=== PATIENT | male | born 1960 | race Two or more races ===

== ENCOUNTER 2020-05-09 10:11 | Outpatient (REF) | payer MEDICAID, SELFPAY | END 2020-05-09 10:12 | disposition home or self-care (01) | LOC: HO.LAB 10:11 | PROVIDERS: Visit Provider Internal Medicine | DX: Z20.828 Contact with and (suspected) exposure to other viral communicable diseases (principal) | CPT/HCPCS: U0003 ==

== ENCOUNTER 2020-06-10 17:41 | Outpatient (REF) | payer MEDICAID, SELFPAY | END 2020-06-10 17:42 | disposition home or self-care (01) | LOC: HO.LAB 17:41 | PROVIDERS: Visit Provider Internal Medicine | DX: Z20.828 Contact with and (suspected) exposure to other viral communicable diseases (principal) | CPT/HCPCS: C9803; U0003 ==

== ENCOUNTER 2020-06-12 14:00 | Outpatient (RCR) | payer MEDICAID, SELFPAY | END 2020-08-08 10:40 | disposition other institution (70) | LOC: HO.PT 14:00 | PROVIDERS: PCP Nurse Practitioner Family; Visit Provider Nurse Practitioner Family | DX: M54.5 Low back pain (principal) | CPT/HCPCS: 97110; 97140; 97162 ==

== ENCOUNTER 2020-08-07 13:05 | Outpatient (REF) | payer MEDICAID, SELFPAY ==
[2020-08-07 14:32] LABS: MANUAL DIFF FLAG NO
[2020-08-07 14:35] LABS: Basophils Absolute Auto 0.1 X10*3/uL (0.0-0.2); Basophils Percent Auto 0.6 % (0-2); Eosinophils Absolute Auto 0.2 X10*3/uL (0.0-0.4); Hematocrit 49.8 % (42-52); Hemoglobin 16.3 g/dl (14.0-18.0); Lymphocytes Absolute Auto 3.3 X10*3/uL (1.2-4.9); Lymphocytes Percent Auto 33.8 % (20-40); Mean Corpuscular HGB Conc 32.7 g/dl (31.0-36.0); Mean Corpuscular Hemoglobin 27.5 pg (27.0-33.0); Mean Corpuscular Volume 84.1 fL (80-98); Mean Platelet Volume 10.2 fL (9.4-12.4); Monocytes Absolute Auto 0.8 X10*3/uL (0.1-1.2); Monocytes Percent Auto 8.3 % (2-11); Neutrophils Absolute Auto 5.4 X10*3/uL (2.0-8.3); Neutrophils Percent Auto 54.3 % (45-73); Platelet Count 303 X10*3/uL (160-400); Red Blood Count 5.92 X10*6/uL (4.60-5.80); Red Cell Distribution Width 12.9 % (11.0-16.0); White Blood Count 9.9 X10*3/uL (4.8-10.8)
[2020-08-07 14:39] LABS: Prothrombin Time 11.3 SEC (10.8-13.0)
[2020-08-07 15:02] LABS: Alanine Aminotransferase 16 U/L (0-40); Albumin Level 4.1 g/dL (3.5-5.0); Alkaline Phosphatase 134 U/L (39-117); Anion Gap 17 (12-20); Aspartate Amino Transferase 11 U/L (5-37); Bilirubin Total 0.6 mg/dL (0.0-1.0); Blood Urea Nitrogen 13 mg/dL (9-16); Calcium 9.1 mg/dL (8.4-10.2); Carbon Dioxide 26 mmol/L (22-29); Chloride 100 mmol/L (96-108); Cholesterol 261 mg/dL; Estimated Glomerular Filt Rate > 60; Glucose Random 302 mg/dL (60-115); HDL Cholesterol 43 mg/dL; LDL Cholesterol Calculated 155 mg/dl; Potassium 4.5 mmol/l (3.3-5.1); Sodium 138 mmol/L (135-145); Total Protein 6.9 g/dL (6.5-8.0); Triglycerides 317 mg/dL
[2020-08-07 15:20] LABS: Estimated Average Glucose 232 mg/dL; Hemoglobin A1c % 9.7 %
== END 2020-08-07 13:06 | disposition home or self-care (01) ==
LOC: HO.LAB 13:05
PROVIDERS: Visit Provider Internal Medicine Cardiovascular Disease
DX: I21.3 ST elevation (STEMI) myocardial infarction of unspecified site (principal)
CPT/HCPCS: 36415; 80053; 80061; 83036; 85025; 85610

== ENCOUNTER → 2020-08-18 13:47 | Outpatient (BNVA) | payer MEDICAID, SELFPAY | PROVIDERS: Visit Provider Nurse Practitioner Family ==

== ENCOUNTER 2020-11-05 15:13 | Outpatient (REF) | payer MEDICAID, SELFPAY | END 2020-11-05 15:14 | disposition home or self-care (01) | LOC: HO.LAB 15:13 | PROVIDERS: Visit Provider Internal Medicine | DX: Z20.822 Contact with and (suspected) exposure to COVID-19 (principal) | CPT/HCPCS: C9803; U0003; U0005 ==

== ENCOUNTER → 2021-01-15 10:44 | Outpatient (BNVA) | payer MEDICAID, SELFPAY | PROVIDERS: PCP Nurse Practitioner Family; Visit Provider Nurse Practitioner Gerontology | DX: E11.42 Type 2 diabetes mellitus with diabetic polyneuropathy (principal); E11.65 Type 2 diabetes mellitus with hyperglycemia; E11.29 Type 2 diabetes mellitus with other diabetic kidney complication; E78.00 Pure hypercholesterolemia, unspecified; I10 Essential (primary) hypertension; R80.9 Proteinuria, unspecified; Z79.4 Long term (current) use of insulin | CPT/HCPCS: 82947; 83036; 99212 ==

== ENCOUNTER 2021-01-30 08:49 | Day surgery (SDC) | payer MEDICAID, SELFPAY ==
--- NOTE | 2021-01-29 11:07 | P.CONAN_ITS ---
Documented by User: Liz Claudette 01/29/21 11:09 HPI - Anesthesia Eval Consult details Narrative: 59yo M for Colonoscopy VU 08/2020 (no DE), on DAPT. Cardiology cleared 09/2020 to proceed with procedure, but NOT to stop DAPT. Routine cardiac visit 01/26/21 - pt reports sporadic, nonexertional CP. Relief with NTG ~3x's monthly. PMFSH Active Problems Active Problems: All Active Problems (Updated 01/15/21 @ 11:53 by SUHA Wellington) Diabetes type 2, uncontrolled (Acute) Type 2 diabetes mellitus with diabetic polyneuropathy (Acute) Type 2 diabetes mellitus with other diabetic kidney complication (Acute) Proteinuria (Acute) Elevated cholesterol (Acute) HTN (hypertension) (Acute) Past Medical History Medical History (Updated 01/15/21 @ 11:53 by SUHA Wellington) CAD (coronary artery disease) COVID-19 vaccine administered Diabetes Diabetes type 2, uncontrolled Elevated cholesterol H/O myocardial infarction, greater than 8 weeks HTN (hypertension) On anticoagulant therapy Proteinuria Sleep apnea 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 Family History Family History Mother Diabetes HTN (hypertension) Father HTN (hypertension) Diabetes Maternal Grandmother Diabetes Maternal Grandfather Diabetes Surgical History Surgical History H/O colonoscopy History of incisional hernia repair Hx of heart artery stent Hx of hernia repair Social History Social History Household Members: Spouse, Family, Children and Other Are you a primary acute care registered nurse to a significant other at home: No Do you presently have visiting nurse or other home services: No Alcohol intake: current Alcohol intake frequency: does not drink Patient Tobacco Use Status: Current everyday Tobacco user Tobacco use type: Cigarette Cigarettes Per Day: 10 Smoked in Last 30 Days: Yes Use of substances other than those prescribed or required for medical reasons: No Are you DNR?: No Advance Directives: No Advance Directives Information Provided: Yes Recently lost weight without trying: No Nutrition Risks: No Nutritional Risk Poor oral hygiene: No Meds Allergies Allergy/AdvReac Type Severity Reaction Status Date / Time No Known Allergies Allergy Verified 01/15/21 11:32 [No Known Allergies*] Home Medications Medication Instructions Recorded Confirmed Last Taken Type aspirin 81 mg tablet,delayed 81 mg PO DAILY 08/18/20 01/15/21 Unknown History release zjgazjcppt-ybypxkmwazzkh-cejccwxp 1 cap PO Q8H PRN 08/18/20 01/15/21 Unknown History 50 mg-300 mg-40 mg capsule clopidogrel 75 mg tablet 75 mg PO DAILY 08/18/20 01/15/21 Unknown History metoprolol succinate 25 mg 25 mg PO DAILY 08/18/20 01/15/21 Unknown History tablet,extended release 24 hr rosuvastatin 40 mg tablet 40 mg PO DAILY 08/18/20 01/15/21 Unknown History acetaminophen 650 mg PO Q4H PRN 09/23/20 01/15/21 Unknown History amlodipine 5 mg PO DAILY 09/23/20 01/15/21 Unknown History lisinopril-hydrochlorothiazide 1 tab PO DAILY 09/23/20 01/15/21 Unknown History metoprolol succinate 50 mg PO DAILY 09/23/20 01/15/21 Unknown History nitroglycerin 1 tab SUBLINGUAL NEEDED 09/23/20 01/15/21 Unknown History pioglitazone 45 mg PO DAILY 09/23/20 01/15/21 Unknown History polyethylene glycol 3350 17 238 g PO ONCE PRN g 01/15/21 01/15/21 Unknown History gram/dose oral powder Exam Exam Date and Time: January 29, 2021 110 Assessment and Plan Assessment Anesthesia Assessment: Chart Reviewed Documented by User: Breonna Vo 01/30/21 09:27 [facility] Past Medical History Medical History (Updated 01/15/21 @ 11:53 by SUHA Wellington) CAD (coronary artery disease) COVID-19 vaccine administered Diabetes Diabetes type 2, uncontrolled Elevated cholesterol H/O myocardial infarction, greater than 8 weeks HTN (hypertension) On anticoagulant therapy Proteinuria Sleep apnea 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 Family History Family History Mother Diabetes HTN (hypertension) Father HTN (hypertension) Diabetes Maternal Grandmother Diabetes Maternal Grandfather Diabetes Surgical History Surgical History H/O colonoscopy History of incisional hernia repair Hx of heart artery stent Hx of hernia repair Social History Social History Household Members: Spouse, Family, Children and Other Are you a primary acute care registered nurse to a significant other at home: No Do you presently have visiting nurse or other home services: No Alcohol intake: current Alcohol intake frequency: does not drink Patient Tobacco Use Status: Current everyday Tobacco user Tobacco use type: Cigarette Cigarettes Per Day: 10 Smoked in Last 30 Days: Yes Use of substances other than those prescribed or required for medical reasons: No Are you DNR?: No Advance Directives: No Advance Directives Information Provided: Yes Recently lost weight without trying: No Nutrition Risks: No Nutritional Risk Poor oral hygiene: No Meds Allergies Allergy/AdvReac Type Severity Reaction Status Date / Time No Known Allergies Allergy Verified 01/15/21 11:32 [No Known Allergies*] Home Medications Medication Instructions Recorded Confirmed Last Taken Type aspirin 81 mg tablet,delayed 81 mg PO DAILY 08/18/20 01/15/21 Unknown History release dxyytabscm-wfdqjcfuutluz-eurmybvw 1 cap PO Q8H PRN 08/18/20 01/15/21 Unknown History 50 mg-300 mg-40 mg capsule clopidogrel 75 mg tablet 75 mg PO DAILY 08/18/20 01/15/21 Unknown History metoprolol succinate 25 mg 25 mg PO DAILY 08/18/20 01/15/21 Unknown History tablet,extended release 24 hr rosuvastatin 40 mg tablet 40 mg PO DAILY 08/18/20 01/15/21 Unknown History acetaminophen 650 mg PO Q4H PRN 09/23/20 01/15/21 Unknown History amlodipine 5 mg PO DAILY 09/23/20 01/15/21 Unknown History lisinopril-hydrochlorothiazide 1 tab PO DAILY 09/23/20 01/15/21 Unknown History metoprolol succinate 50 mg PO DAILY 09/23/20 01/15/21 Unknown History nitroglycerin 1 tab SUBLINGUAL NEEDED 09/23/20 01/15/21 Unknown History pioglitazone 45 mg PO DAILY 09/23/20 01/15/21 Unknown History polyethylene glycol 3350 17 238 g PO ONCE PRN g 01/15/21 01/15/21 Unknown History gram/dose oral powder Exam Airway Mallampati Class: III TM Dist: >3cm Neck ROM: Full Heart: rrr Lungs: cta Assessment and Plan Assessment Anesthesia Assessment: Anesthesia Plan Discussed and Chart Reviewed Final Anesthetic Review NPO: Yes ASA Class: III Final Preanesthetic Review: No Changes in Pt Med Stat and Consent Obtained/Reviewed Patient Risk: Intermediate Procedure Risk: Intermediate Anesthetic Plan Anesthetic Plan: MAC: Disposition: Standard PACU
[2021-01-30 08:58] VITALS: BMI 36.2
[2021-01-30 09:03] VITALS: BP 119/73; PULSE 88; RESP 16; TEMP 36.3; O2SAT 96
[2021-01-30 09:10] LABS: Glucose, Whole Blood 183 mg/dL (60-115)
[2021-01-30] MEDS: Lactated Ringers 1,000 ML 100 ML IVCONT (09:17)
--- NOTE | 2021-01-30 09:26 | MHC.SHP ---
Pre-Procedural Eval Section A Date of Service: 01/30/21 The patient is an INPATIENT: No The History & Physical has been completed within 30 days and I have reviewed it.: No Section B Chief Complaint: Screening Details of Present Illness: Colon cancer screening Relevant Family History (Specify if Yes): No Present Medications: see Short Stay Collaborative assessment Medical History: Significant History (H/O myocardial infarction, greater than 8 weeks) Allergies: Allergies Allergy/AdvReac Type Severity Reaction Status Date / Time No Known Allergies Allergy Verified 01/15/21 11:32 [No Known Allergies*] Review of Systems Sugical H&P ROS: Negative: Constitution, Cardiovascular, Respiratory and Gastrointestinal Exam Surgical H&P Exam: Normal: Heart, Normal: Lungs, Normal: Extremities and Normal: Abdomen Plan Diagnosis/Plan: Unchanged I have reviewed the history and physical and performed a pertinent physical examination on my patient. No changes have occurred unless specified.
[2021-01-30 10:14] VITALS: BP 106/62; PULSE 89; RESP 16; TEMP 36.6; O2SAT 94
[2021-01-30 10:30] VITALS: BP 115/69; PULSE 82; RESP 18; TEMP 36.6; O2SAT 97
--- NOTE | 2021-01-31 13:06 | W.PM.OPN ---
Operative Note Operative Note Date of Service: 01/30/21 Narrative: Pre-op diagnosis: Colon cancer screening Post-op diagnosis: other (Colon polyps, diverticulosis, hemorrhoids) Procedure: COLONOSCOPY TILL CECUM Consent: Indications for the procedure and potential complications of bleeding, perforation, reaction to medications and missed diagnosis were discussed with the patient and informed consent was obtained. Instrument: Olympus PCF H 190 L variable stiffness pediatric colonoscope Monitoring: Vital signs and clinical assessment, intermittent blood pressure monitoring, continuous EKG monitoring, Pulse oximetry and Carbon Dioxide monitoring were done throughout the procedure. Colon withdrawl time was 25 minutes. Procedure: The patient was placed in the left lateral decubitis position and pre-procedure medications were administered. After a digital rectal examination of the ano-rectum, the video colonoscope was inserted into the rectum and advanced through the colon to the cecum. The colonoscope was slowly withdrawn in a retrograde panoramic fashion and the colon mucosa was carefully examined including a retroflexed view of the rectum. Findings and interventions are described below. Procedure Difficulty: Without difficulty Findings: Terminal Ileum: Not evaluated Cecum: Normal Ascending Colon: Scattered diverticulosis Transverse Colon: Two 10-12 mm sessile polyps 60 to 70 cms - not removed since pt is on aspirin and Plavix. Moderate diverticulosis Descending Colon: Moderate diverticulosis Sigmoid Colon: A 9-10 mm sessile polyp at 22 cms - not removed since pt is on Plavix. Moderate diverticulosis Rectum: Normal Ano-rectum: Moderate internal hemorrhoids Colon preparation: Fair despite copuous irrigation (pt ate chicken and rice at 11 am yesterday) Impression and Post Procedure Diagnosis: Colonoscopy Findings: Three medium sized polyps detected - not removed since pt is unable to hold Plavix until February. Moderate diverticulosis seen in the entire colon Moderate hemorrhoids on retroflexed exam. Plan: Await pathology results Patient to schedule a FU appointment on in the GI Clinic with Vicky Akhtar FNP-BC in 3 months. Repeat Colonoscopy interval based on path results - in 4-6 months after holding Plavix so polyps can be removed. Above findings were reviewed with the patient and colon polyps and diverticulosis handouts were given in the discharge area Surgeon: Sayda Cárdenas MD Anesthesia: MAC (Dr Prado) Was an Local Owner Operator Truck Driver used for this Procedure?: Yes Local Owner Operator Truck Driver: Vinicio Driscoll Estimated blood loss (mL): 0 Pathology: none sent Condition: stable Disposition: PACU
== END 2021-01-30 13:23 | disposition home or self-care (01) ==
PROVIDERS: PCP Nurse Practitioner Family; Visit Provider Internal Medicine Gastroenterology
PROC: 0DJD8ZZ Inspection of Lower Intestinal Tract, Via Natural or Artificial Opening Endoscopic (ICD-10-PCS; CPT 45378; principal; 2021-01-30 10:20)
DX: Z12.11 Encounter for screening for malignant neoplasm of colon (principal); K63.5 Polyp of colon; K57.30 Diverticulosis of large intestine without perforation or abscess without bleeding; E11.42 Type 2 diabetes mellitus with diabetic polyneuropathy; E11.29 Type 2 diabetes mellitus with other diabetic kidney complication; N28.9 Disorder of kidney and ureter, unspecified; I25.10 Atherosclerotic heart disease of native coronary artery without angina pectoris; Z98.61 Coronary angioplasty status; I10 Essential (primary) hypertension; G47.30 Sleep apnea, unspecified; Z79.82 Long term (current) use of aspirin; Z79.899 Other long term (current) drug therapy; Z79.02 Long term (current) use of antithrombotics/antiplatelets; F17.210 Nicotine dependence, cigarettes, uncomplicated
CPT/HCPCS: 45378; 82947

== ENCOUNTER → 2021-04-28 07:29 | Outpatient (BNVA) | payer MEDICAID, SELFPAY | PROVIDERS: PCP Nurse Practitioner Family; Visit Provider Nurse Practitioner Gerontology | DX: E11.65 Type 2 diabetes mellitus with hyperglycemia (principal); E11.29 Type 2 diabetes mellitus with other diabetic kidney complication; E78.5 Hyperlipidemia, unspecified; E66.01 Morbid (severe) obesity due to excess calories; R80.9 Proteinuria, unspecified; I10 Essential (primary) hypertension; Z68.35 Body mass index [BMI] 35.0-35.9, adult | CPT/HCPCS: 82947; Q3014 ==

== ENCOUNTER → 2021-06-12 11:44 | Outpatient (BNVA) | payer MEDICAID, SELFPAY | PROVIDERS: PCP Nurse Practitioner Family; Referring Provider Nurse Practitioner Family; Visit Provider Nurse Practitioner Family | DX: Z12.11 Encounter for screening for malignant neoplasm of colon (principal) | CPT/HCPCS: 99212 ==

== ENCOUNTER → 2021-09-22 12:38 | Outpatient (BNVA) | payer MEDICAID, SELFPAY | PROVIDERS: PCP Nurse Practitioner Family; Visit Provider Nurse Practitioner Gerontology | DX: E11.42 Type 2 diabetes mellitus with diabetic polyneuropathy (principal); E11.65 Type 2 diabetes mellitus with hyperglycemia; E11.29 Type 2 diabetes mellitus with other diabetic kidney complication; E78.00 Pure hypercholesterolemia, unspecified; E66.09 Other obesity due to excess calories; R80.9 Proteinuria, unspecified; I10 Essential (primary) hypertension; Z79.4 Long term (current) use of insulin; Z68.34 Body mass index [BMI] 34.0-34.9, adult | CPT/HCPCS: 82947; 83036; 99212 ==

== ENCOUNTER → 2021-11-20 14:24 | Outpatient (BNVA) | payer MEDICAID, SELFPAY | PROVIDERS: PCP Nurse Practitioner Family; Visit Provider Urology | DX: E11.69 Type 2 diabetes mellitus with other specified complication (principal); N52.1 Erectile dysfunction due to diseases classified elsewhere; N47.1 Phimosis | CPT/HCPCS: 99202 ==

== ENCOUNTER 2021-11-23 08:14 | Day surgery (SDC) | payer MEDICAID, SELFPAY ==
--- NOTE | 2021-11-20 12:29 | HO.ANESPROP2 ---
Documented by User: Liz Wilkins NP 11/20/21 12:33 HPI - Anesthesia Eval Consult details Narrative: 60yo M for Colonoscopy Stable at 09/2021 cardiac visit s/p colonoscopy 01/2021 with MAC. Pt was unable to stop plavix at that time so polyps were not removed. Repeat now to remove polyps off plavix. PMFSH Active Problems Active Problems: All Active Problems (Updated 09/22/21 @ 13:39 by SUHA Wellington) Obesity due to excess calories (Acute) Diabetes type 2, uncontrolled (Acute) Type 2 diabetes mellitus with diabetic polyneuropathy (Acute) Type 2 diabetes mellitus with other diabetic kidney complication (Acute) Proteinuria (Acute) Elevated cholesterol (Acute) HTN (hypertension) (Acute) Past Medical History Medical History CAD (coronary artery disease) COVID-19 vaccine administered Diabetes Diabetes type 2, uncontrolled Elevated cholesterol H/O myocardial infarction, greater than 8 weeks HTN (hypertension) Obesity due to excess calories On anticoagulant therapy Proteinuria Sleep apnea 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 Family History Family History Mother Diabetes HTN (hypertension) Father HTN (hypertension) Diabetes Maternal Grandmother Diabetes Maternal Grandfather Diabetes Surgical History Surgical History H/O colonoscopy History of incisional hernia repair Hx of colonoscopy Hx of heart artery stent Hx of hernia repair Social History Social History Household Members: Spouse, Family, Children and Other Are you a primary healthcare corporate account director to a significant other at home: No Do you presently have visiting nurse or other home services: No Alcohol intake: current Alcohol intake frequency: does not drink Patient Tobacco Use Status: Current everyday Tobacco user Tobacco use type: Cigarette Cigarettes Per Day: 10 Advance Directives: No Advance Directives Information Provided: Yes Recently lost weight without trying: No Nutrition Risks: No Nutritional Risk Meds Allergies Allergy/AdvReac Type Severity Reaction Status Date / Time No Known Allergies Allergy Verified 11/20/21 14:34 [No Known Allergies*] Home Medications Medication Instructions Recorded Confirmed Last Taken Type aspirin 81 mg tablet,delayed 81 mg PO DAILY 08/18/20 11/17/21 01/29/21 History release (Adult Low Dose Aspirin) puqwfojwmi-wqokuxmquvlrg-gddljnkg 1 cap PO Q8H PRN 08/18/20 11/17/21 Unknown History 50 mg-300 mg-40 mg capsule (Fioricet) clopidogrel 75 mg tablet (Plavix) 75 mg PO DAILY 08/18/20 11/17/21 01/29/21 History rosuvastatin 40 mg tablet 40 mg PO DAILY 08/18/20 11/17/21 Unknown History acetaminophen 325 mg tablet 650 mg PO Q4H PRN 09/23/20 11/17/21 Unknown History amlodipine 5 mg tablet 5 mg PO DAILY 09/23/20 11/17/21 Unknown History lisinopril 20 1 tab PO DAILY 09/23/20 11/17/21 Unknown History mg-hydrochlorothiazide 12.5 mg tablet nitroglycerin 0.4 mg sublingual 1 tab SUBLINGUAL NEEDED PRN 09/23/20 11/17/21 Unknown History tablet glipizide 5 mg tablet 5 mg PO BID 04/28/21 11/17/21 Unknown History cholecalciferol (vitamin D3) 50 50 mcg PO DAILY 09/22/21 11/17/21 Unknown History mcg (2,000 unit) tablet metoprolol succinate 50 mg 1 tab PO DAILY 11/17/21 11/17/21 Unknown History tablet,extended release 24 hr nicotine 14 mg/24 hr daily TOPICAL 11/17/21 Unknown History transdermal patch omega-3 acid ethyl esters 1 gram 2 cap PO BID 11/17/21 11/17/21 Unknown History capsule atogepant 10 mg tablet (Qulipta) 10 mg PO DAILY 11/20/21 Unknown History wyymmzopvx-gcxcybgciemzm-cwpkwlcc 1 - 2 tab PO Q8H PRN 11/20/21 Unknown History 50 mg-325 mg-40 mg tablet Exam Exam Date and Time: November 20, 2021 122 Assessment and Plan Assessment Anesthesia Assessment: Chart Reviewed Documented by User: Breonna Vo MD 11/23/21 10:11 [facility] Past Medical History Medical History CAD (coronary artery disease) COVID-19 vaccine administered Diabetes Diabetes type 2, uncontrolled Elevated cholesterol H/O myocardial infarction, greater than 8 weeks HTN (hypertension) Obesity due to excess calories On anticoagulant therapy Proteinuria Sleep apnea 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 Family History Family History Mother Diabetes HTN (hypertension) Father HTN (hypertension) Diabetes Maternal Grandmother Diabetes Maternal Grandfather Diabetes Family history of problems with anesthesia: No Surgical History Surgical History H/O colonoscopy History of incisional hernia repair Hx of colonoscopy Hx of heart artery stent Hx of hernia repair History of Problems with Anesthesia: No Social History Social History Household Members: Spouse, Family, Children and Other Are you a primary healthcare corporate account director to a significant other at home: No Do you presently have visiting nurse or other home services: No Alcohol intake: current Alcohol intake frequency: does not drink Patient Tobacco Use Status: Current everyday Tobacco user Tobacco use type: Cigarette Cigarettes Per Day: 10 Advance Directives: No Advance Directives Information Provided: Yes Recently lost weight without trying: No Nutrition Risks: No Nutritional Risk Meds Allergies Allergy/AdvReac Type Severity Reaction Status Date / Time No Known Allergies Allergy Verified 11/20/21 14:34 [No Known Allergies*] Home Medications Medication Instructions Recorded Confirmed Last Taken Type aspirin 81 mg tablet,delayed 81 mg PO DAILY 08/18/20 11/17/21 01/29/21 History release (Adult Low Dose Aspirin) bxjwrxzeqf-cpyibcoogutbm-wvvpxxum 1 cap PO Q8H PRN 08/18/20 11/17/21 Unknown History 50 mg-300 mg-40 mg capsule (Fioricet) clopidogrel 75 mg tablet (Plavix) 75 mg PO DAILY 08/18/20 11/17/21 01/29/21 History rosuvastatin 40 mg tablet 40 mg PO DAILY 08/18/20 11/17/21 Unknown History acetaminophen 325 mg tablet 650 mg PO Q4H PRN 09/23/20 11/17/21 Unknown History amlodipine 5 mg tablet 5 mg PO DAILY 09/23/20 11/17/21 Unknown History lisinopril 20 1 tab PO DAILY 09/23/20 11/17/21 Unknown History mg-hydrochlorothiazide 12.5 mg tablet nitroglycerin 0.4 mg sublingual 1 tab SUBLINGUAL NEEDED PRN 09/23/20 11/17/21 Unknown History tablet glipizide 5 mg tablet 5 mg PO BID 04/28/21 11/17/21 Unknown History cholecalciferol (vitamin D3) 50 50 mcg PO DAILY 09/22/21 11/17/21 Unknown History mcg (2,000 unit) tablet metoprolol succinate 50 mg 1 tab PO DAILY 11/17/21 11/17/21 Unknown History tablet,extended release 24 hr nicotine 14 mg/24 hr daily TOPICAL 11/17/21 Unknown History transdermal patch omega-3 acid ethyl esters 1 gram 2 cap PO BID 11/17/21 11/17/21 Unknown History capsule atogepant 10 mg tablet (Qulipta) 10 mg PO DAILY 11/20/21 Unknown History lbwjatxwxq-erxyulvyuhepx-pidzhtqy 1 - 2 tab PO Q8H PRN 11/20/21 Unknown History 50 mg-325 mg-40 mg tablet Exam Airway Mallampati Class: II TM Dist: >3cm Neck ROM: Full Heart: rrr Lungs: cta Assessment and Plan Assessment Anesthesia Assessment: Anesthesia Plan Discussed and Chart Reviewed Final Anesthetic Review Family History of Problems with Anesthesia: No History of Problems with Anesthesia: No NPO: Yes ASA Class: III Final Preanesthetic Review: No Changes in Pt Med Stat, Meds/Allgs Chart Reviewed and Consent Obtained/Reviewed Patient Risk: Intermediate Procedure Risk: Intermediate Anesthetic Plan Anesthetic Plan: MAC: Disposition: Standard PACU
--- NOTE | 2021-11-23 09:24 | MHC.SHP ---
Pre-Procedural Eval Section A Date of Service: 11/23/21 The patient is an INPATIENT: No The History & Physical has been completed within 30 days and I have reviewed it.: No Section B Chief Complaint: screening Details of Present Illness: Colon cancer screening, history of colon polyps Relevant Family History (Specify if Yes): No Relevant Social History: Tobacco Use Present Medications: see Short Stay Collaborative assessment Medical History: Significant History (CAD (coronary artery disease) COVID-19 vaccine administered Diabetes Diabetes type 2, uncontrolled Elevated cholesterol H/O myocardial infarction, greater than 8 weeks HTN (hypertension) Obesity due to excess calories On anticoagulant therapy Proteinuria Sleep apnea Type 2 diabetes mellitus with jose) History of Previous Operations: Relevant previous surgery/procedure and date(s) (H/O colonoscopy History of incisional hernia repair Hx of colonoscopy Hx of heart artery stent Hx of hernia repair) Allergies: Allergies Allergy/AdvReac Type Severity Reaction Status Date / Time No Known Allergies Allergy Verified 11/20/21 14:34 [No Known Allergies*] Review of Systems Sugical H&P ROS: Negative: Constitution, Cardiovascular, Respiratory and Gastrointestinal Exam Surgical H&P Exam: Normal: Heart, Normal: Lungs, Normal: Extremities and Normal: Abdomen Plan Diagnosis/Plan: Unchanged I have reviewed the history and physical and performed a pertinent physical examination on my patient. No changes have occurred unless specified.
[2021-11-23 09:58] VITALS: BP 173/91; PULSE 71; RESP 18; TEMP 36.6; O2SAT 97; BMI 35.3
--- NOTE | 2021-11-23 10:13 | W.PM.OPN ---
Operative Note Operative Note Date of Service: 11/23/21 Narrative: Pre-op diagnosis: Colon cancer screening, history of colon polyps Post-op diagnosis:?other (Colon polyps, diverticulosis, hemorrhoids) Procedure: COLONOSCOPY TILL CECUM WITH SNARE POLYPECTOMY Consent: Indications for the procedure and potential complications of bleeding, perforation, reaction to medications and missed diagnosis were discussed with the patient and informed consent was obtained. Instrument: Olympus PCF H 190 L variable stiffness pediatric colonoscope Monitoring: Vital signs and clinical assessment, intermittent blood pressure monitoring, continuous EKG monitoring, Pulse oximetry and Carbon Dioxide monitoring were done throughout the procedure. Colon withdrawl time was 25 minutes. Procedure: The patient was placed in the left lateral decubitis position and pre-procedure medications were administered. After a digital rectal examination of the ano-rectum, the video colonoscope was inserted into the rectum and advanced through the colon to the cecum. The colonoscope was slowly withdrawn in a retrograde panoramic fashion and the colon mucosa was carefully examined including a retroflexed view of the rectum. Findings and interventions are described below. Procedure Difficulty: Without difficulty. There was excessive spasm in the colon. Findings: Terminal Ileum: Not evaluated Cecum:? Normal Ascending Colon:? A 12 - 15 mm sessile polyp at 70 cms at the hepatic flexure - removed with a hot snare. A 6-7 mm sessile polyp in the mid AC behind a fold, seen briefly and not seen again despite multiple passes. Scattered moderate diverticulosis throughout the colon. Transverse Colon:? ? A 9-10 mm sessile polyp removed with a hot snare Descending Colon:? Scattered moderate diverticulosis throughout the colon. Sigmoid Colon:? A 10 mm sessile polyp at 22 cms - removed with a hot snare. Moderate diverticulosis Rectum:? Normal Ano-rectum:? Moderate internal hemorrhoids Colon preparation:? Good after copious irrigation and fair in some areas of the colon (pt took rice and beans at 1 pm n 11/22/21) Impression and Post Procedure Diagnosis: Colonoscopy Findings: Three medium sized polyps removed. A 6-7 mm sessile polyp in the mid AC behind a fold, seen briefly and not seen again despite multiple passes. Moderate diverticulosis seen in the entire colon Moderate hemorrhoids on retroflexed exam. Plan: Await pathology results Patient has an appointment on 12/08/21 in the GI Clinic with Giovana,Vicky D, BRAIDING MACHINE TENDER-BC. Repeat Colonoscopy interval based on path results - in 2 years if polyps are adenomatous and due to fair prep. Above findings were reviewed with the patient and colon polyps and diverticulosis handouts were given in the discharge area Surgeon: Sayda Cárdenas MD Anesthesia:?MAC (Dr Aguilar) Was an Operations Research Scientist used for this Procedure?:?Yes Operations Research Scientist:?Vinicio Driscoll Estimated blood loss (mL):?0 Pathology:?other (A- ASCENDING COLON POLYP? B- TRANSVERSE COLON POLYP? C- SIGMOID POLYP) Condition:?stable Disposition:?PACU
[2021-11-23 10:18] LABS: Glucose, Whole Blood 181 mg/dL (60-115)
[2021-11-23 10:51] VITALS: BP 126/84; PULSE 81; RESP 16; TEMP 36.7; O2SAT 96
== END 2021-11-23 11:32 | disposition home or self-care (01) ==
PROVIDERS: PCP Nurse Practitioner Family; Visit Provider Internal Medicine Gastroenterology
PROC: 0DJD8ZZ Inspection of Lower Intestinal Tract, Via Natural or Artificial Opening Endoscopic (ICD-10-PCS; CPT 45378; principal; 2021-11-23 10:10)
DX: Z12.11 Encounter for screening for malignant neoplasm of colon (principal); Z86.010 Personal history of colon polyps; D12.2 Benign neoplasm of ascending colon; D12.3 Benign neoplasm of transverse colon; D12.5 Benign neoplasm of sigmoid colon; K57.30 Diverticulosis of large intestine without perforation or abscess without bleeding; K64.8 Other hemorrhoids; I25.2 Old myocardial infarction; I25.10 Atherosclerotic heart disease of native coronary artery without angina pectoris; Z98.61 Coronary angioplasty status; I10 Essential (primary) hypertension; E78.5 Hyperlipidemia, unspecified; G47.33 Obstructive sleep apnea (adult) (pediatric); E11.42 Type 2 diabetes mellitus with diabetic polyneuropathy; E66.9 Obesity, unspecified; Z68.33 Body mass index [BMI] 33.0-33.9, adult; Z79.4 Long term (current) use of insulin; Z79.82 Long term (current) use of aspirin; Z79.01 Long term (current) use of anticoagulants; Z79.899 Other long term (current) drug therapy; Z99.89 Dependence on other enabling machines and devices; F17.210 Nicotine dependence, cigarettes, uncomplicated
CPT/HCPCS: 45385; 82947; 88305

== ENCOUNTER → 2021-12-08 13:32 | Outpatient (BNVA) | payer MEDICAID, SELFPAY | PROVIDERS: PCP Nurse Practitioner Family; Referring Provider Nurse Practitioner Family; Visit Provider Nurse Practitioner Family | DX: D36.9 Benign neoplasm, unspecified site (principal); Z98.890 Other specified postprocedural states | CPT/HCPCS: 99212 ==

== ENCOUNTER 2022-02-01 05:48 | Day surgery (SDC) | payer MEDICAID, SELFPAY ==
[2022-01-26 11:02] VITALS: BMI 35.5
--- NOTE | 2022-01-29 12:09 | HO.ANESPROP2 ---
Documented by User: Liz Wilkins NP 01/29/22 12:16 HPI - Anesthesia Eval Consult details Narrative: 61yo M for Circumcision Cardiac cleared 12/2021 Plavix/ASA for CAD PMFSH Active Problems Active Problems: All Active Problems (Updated 01/26/22 @ 11:03 by Stacy Mcbride RN) Phimosis (Acute) Erectile dysfunction associated with type 2 diabetes mellitus (Acute) Tubular adenoma (Acute) Obesity due to excess calories (Acute) Diabetes type 2, uncontrolled (Acute) Type 2 diabetes mellitus with diabetic polyneuropathy (Acute) Type 2 diabetes mellitus with other diabetic kidney complication (Acute) Proteinuria (Acute) Elevated cholesterol (Acute) HTN (hypertension) (Acute) Past Medical History Medical History CAD (coronary artery disease) COVID-19 vaccine series completed Diabetes Diabetes type 2, uncontrolled Elevated cholesterol H/O myocardial infarction, greater than 8 weeks HTN (hypertension) Obesity due to excess calories On anticoagulant therapy Proteinuria Sleep apnea Tubular adenoma 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 Family History Family History Mother Diabetes HTN (hypertension) Father HTN (hypertension) Diabetes Maternal Grandmother Diabetes Maternal Grandfather Diabetes Family history of problems with anesthesia: No Surgical History Surgical History H/O colonoscopy History of incisional hernia repair Hx of colonoscopy Hx of heart artery stent Hx of hernia repair History of Problems with Anesthesia: No Social History Social History Household Members: Spouse, Family, Children and Other Are you a primary career and guidance counselor to a significant other at home: No Do you presently have visiting nurse or other home services: No Alcohol intake: current Alcohol intake frequency: does not drink Patient Tobacco Use Status: Current everyday Tobacco user Tobacco use type: Cigarette Cigarettes Per Day: 10 Smoked in Last 30 Days: Yes Patient Interested in Nicotine Replacement: No Are you DNR?: No Advance Directives: No Advance Directives Information Provided: Yes Advance Directives on File: No Nutrition Risks: No Nutritional Risk Meds Allergies Allergy/AdvReac Type Severity Reaction Status Date / Time No Known Allergies Allergy Verified 02/01/22 06:53 [No Known Allergies*] Home Medications Medication Instructions Recorded Confirmed Last Taken Type aspirin 81 mg tablet,delayed 81 mg PO DAILY 08/18/20 01/26/22 01/25/22 History release (Adult Low Dose Aspirin) [id number]-klcvjzycdswbu-odhhlacu 1 cap PO Q8H PRN Headache 08/18/20 11/17/21 Unknown History 50 mg-300 mg-40 mg capsule (Fioricet) clopidogrel 75 mg tablet (Plavix) 75 mg PO DAILY 08/18/20 01/26/22 01/25/22 History rosuvastatin 40 mg tablet 40 mg PO DAILY 08/18/20 01/26/22 Unknown History acetaminophen 325 mg tablet 650 mg PO Q4H PRN Pain 09/23/20 11/17/21 Unknown History amlodipine 5 mg tablet 5 mg PO DAILY 09/23/20 01/26/22 02/01/22 History lisinopril 20 1 tab PO DAILY 09/23/20 01/26/22 Unknown History mg-hydrochlorothiazide 12.5 mg tablet nitroglycerin 0.4 mg sublingual 1 tab sublingual NEEDED PRN 09/23/20 01/26/22 Unknown History tablet Angina glipizide 5 mg tablet 10 mg PO BID 04/28/21 01/26/22 Unknown History cholecalciferol (vitamin D3) 50 50 mcg PO DAILY 09/22/21 01/26/22 Unknown History mcg (2,000 unit) tablet metoprolol succinate 50 mg 1 tab PO DAILY 11/17/21 01/26/22 02/01/22 History tablet,extended release 24 hr nicotine 14 mg/24 hr daily topical 11/17/21 Unknown History transdermal patch omega-3 acid ethyl esters 1 gram 2 cap PO BID 11/17/21 01/26/22 Unknown History capsule atogepant 10 mg tablet (Qulipta) 10 mg PO DAILY migraine 11/20/21 01/26/22 Unknown History bciuylvpht-ntcvrghpfxkau-oamubvrq 1 - 2 tab PO Q8H PRN Migraine 11/20/21 01/26/22 Unknown History 50 mg-325 mg-40 mg tablet Headache Exam Exam Date and Time: January 29, 2022 1209 Height,Weight and Vital Signs: Height 5 ft 4 in Weight 93.894 kg Narrative Narrative: EKG 12/2021 SR per cardiac note Assessment and Plan Assessment Anesthesia Assessment: Chart Reviewed Final Anesthetic Review Family History of Problems with Anesthesia: No History of Problems with Anesthesia: No Documented by User: Miko Rodriguez MD 02/01/22 07:28 [facility] Past Medical History Medical History CAD (coronary artery disease) COVID-19 vaccine series completed Diabetes Diabetes type 2, uncontrolled Elevated cholesterol H/O myocardial infarction, greater than 8 weeks HTN (hypertension) Obesity due to excess calories On anticoagulant therapy Proteinuria Sleep apnea Tubular adenoma 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 Family History Family History Mother Diabetes HTN (hypertension) Father HTN (hypertension) Diabetes Maternal Grandmother Diabetes Maternal Grandfather Diabetes Surgical History Surgical History H/O colonoscopy History of incisional hernia repair Hx of colonoscopy Hx of heart artery stent Hx of hernia repair Social History Social History Household Members: Spouse, Family, Children and Other Are you a primary career and guidance counselor to a significant other at home: No Do you presently have visiting nurse or other home services: No Alcohol intake: current Alcohol intake frequency: does not drink Patient Tobacco Use Status: Current everyday Tobacco user Tobacco use type: Cigarette Cigarettes Per Day: 10 Smoked in Last 30 Days: Yes Patient Interested in Nicotine Replacement: No Are you DNR?: No Advance Directives: No Advance Directives Information Provided: Yes Advance Directives on File: No Nutrition Risks: No Nutritional Risk Meds Allergies Allergy/AdvReac Type Severity Reaction Status Date / Time No Known Allergies Allergy Verified 02/01/22 06:53 [No Known Allergies*] Home Medications Medication Instructions Recorded Confirmed Last Taken Type aspirin 81 mg tablet,delayed 81 mg PO DAILY 08/18/20 01/26/22 01/25/22 History release (Adult Low Dose Aspirin) qpjibhcmtl-kfetzqvostntv-xturnvec 1 cap PO Q8H PRN Headache 08/18/20 11/17/21 Unknown History 50 mg-300 mg-40 mg capsule (Fioricet) clopidogrel 75 mg tablet (Plavix) 75 mg PO DAILY 08/18/20 01/26/22 01/25/22 History rosuvastatin 40 mg tablet 40 mg PO DAILY 08/18/20 01/26/22 Unknown History acetaminophen 325 mg tablet 650 mg PO Q4H PRN Pain 09/23/20 11/17/21 Unknown History amlodipine 5 mg tablet 5 mg PO DAILY 09/23/20 01/26/22 02/01/22 History lisinopril 20 1 tab PO DAILY 09/23/20 01/26/22 Unknown History mg-hydrochlorothiazide 12.5 mg tablet nitroglycerin 0.4 mg sublingual 1 tab sublingual NEEDED PRN 09/23/20 01/26/22 Unknown History tablet Angina glipizide 5 mg tablet 10 mg PO BID 04/28/21 01/26/22 Unknown History cholecalciferol (vitamin D3) 50 50 mcg PO DAILY 09/22/21 01/26/22 Unknown History mcg (2,000 unit) tablet metoprolol succinate 50 mg 1 tab PO DAILY 11/17/21 01/26/22 02/01/22 History tablet,extended release 24 hr nicotine 14 mg/24 hr daily topical 11/17/21 Unknown History transdermal patch omega-3 acid ethyl esters 1 gram 2 cap PO BID 11/17/21 01/26/22 Unknown History capsule atogepant 10 mg tablet (Qulipta) 10 mg PO DAILY migraine 11/20/21 01/26/22 Unknown History ykfmwojvfv-aflitgbzcmhxs-ydhdmlxx 1 - 2 tab PO Q8H PRN Migraine 11/20/21 01/26/22 Unknown History 50 mg-325 mg-40 mg tablet Headache Exam Airway Mallampati Class: IV TM Dist: >3cm Neck ROM: Full Loose/Missing/Broken Teeth: No (Rrr) Lungs: clear Assessment and Plan Final Anesthetic Review ASA Class: IV Final Preanesthetic Review: No Changes in Pt Med Stat, Meds/Allgs Chart Reviewed, Consent Obtained/Reviewed and Anes Risks/Benef Reviewed Anesthetic Plan Anesthetic Plan: GA Disposition: Standard PACU
[2022-02-01] VITALS (7 sets, daily range): BP systolic 115–158; BP diastolic 71–97; PULSE 83–96; RESP 18–20; TEMP 36.2–36.6; O2SAT 93–98
[2022-02-01] MEDS: Lactated Ringers 1,000 ML 100 ML IVCONT (06:36)
[2022-02-01 06:38] LABS: Glucose, Whole Blood 228 mg/dL (60-115)
--- NOTE | 2022-02-01 07:26 | MHC.SHP ---
Pre-Procedural Eval Section A Date of Service: 02/01/22 The patient is an INPATIENT: No Changes since office visit: No Cold of Flu in the past 2 weeks, No New Medical Problems, No Changes in Medication and No Patient answered all questions The History & Physical has been completed within 30 days and I have reviewed it.: Yes Section B Chief Complaint: Phimosis Allergies: Allergies Allergy/AdvReac Type Severity Reaction Status Date / Time No Known Allergies Allergy Verified 02/01/22 06:53 [No Known Allergies*] Plan Diagnosis/Plan: Unchanged (planned circumcision) I have reviewed the history and physical and performed a pertinent physical examination on my patient. No changes have occurred unless specified.
--- NOTE | 2022-02-01 08:42 | W.PM.OPN ---
Operative Note Operative Note Date of Service: 02/01/22 Narrative: PreOperative Diagnosis: Balanitis and phimosis Post Operative Diagnosis: Balanitis and phimosis Procedure: Circumcision with frenulectomy Surgeon: Dr Kaiden Hernández Anesthesia: General Indications for procedure: Recurring balanitis in inability to withdrawal foreskin of penile glans. Risks and benefits including bleeding, scarring, need for revision surgery been discussed. Procedure: After informed consent was verified the patient was brought to the operating room and placed in a supine position. Anesthesia was administered per protocol. The patient was prepped and draped sterile fashion. Safety pause time-out was performed. Antibiotics have been given. The penis was examined and proximal incision marked that lay just proximal to the resting position of the penile sulcus. This was followed around the circumference of the penis. A penile ring block was performed using 1% lidocaine with no epinephrine. Approximately 8 cc. The proximal incision was developed with sharp blade running circumferentially around the penis. The skin was to give a 1 cm separation between the foreskin in the remaining penile shaft skin. The foreskin was withdrawn and the penile glans exposed. The frenulum was attached. This was divided in order to release the skin to a more proximal position on the shaft. A a distal incision was made approximately 5 mm proximal to the penile sulcus. Using clamps the dorsal skin was elevated. Using Metzenbaum scissors the avascular plane was entered and proximal and distal incision were joined. The bridging skin was elevated and clamped. It was then divided using Bovie. The sleeve of tissue was then removed circumferentially around the penis using cautery in order to minimize bleeding. The shaft was then examined in any bleeding areas were controlled. More local anesthetic was injected into the plane beneath avascular plane to help with postprocedure pain management. Frenulum edges were reapproximated using a 5 0 fast-absorbing suture The skin edges after they were appropriately examined low reapposed. A 4-0 chromic suture was placed at 12:00 o'clock and 06:00 o'clock positions. Interrupted 4-0 was then placed the 09:00 o'clock and 3 o'clock position. Each quadrant was then filled with 3 sutures using 4-0 chromic. At the completion of the procedure there was adequate hemostasis. The incision was washed and dried. Antibiotic cream was applied to the incision. A Johana wrap was applied followed by a Coban dressing. Xeroform gauze had been used to cover antibiotic ointment. He tolerated the procedure well and was extubated in the room and transferred in stable condition to the recovery area. Pathology: Foreskin Drains: none
[2022-02-01] MEDS: Acetaminophen 325 MG TABLET 650 MG PO (09:00)
== END 2022-02-01 10:04 | disposition home or self-care (01) ==
PROVIDERS: PCP Nurse Practitioner Family; Visit Provider Urology
PROC: (CPT 54161; principal; 2022-02-01 07:30)
DX: N47.1 Phimosis (principal); N48.1 Balanitis; I25.10 Atherosclerotic heart disease of native coronary artery without angina pectoris; I10 Essential (primary) hypertension; Z98.61 Coronary angioplasty status; I25.2 Old myocardial infarction; E11.69 Type 2 diabetes mellitus with other specified complication; N52.1 Erectile dysfunction due to diseases classified elsewhere; E11.42 Type 2 diabetes mellitus with diabetic polyneuropathy; E11.29 Type 2 diabetes mellitus with other diabetic kidney complication; N28.9 Disorder of kidney and ureter, unspecified; Z79.4 Long term (current) use of insulin; Z79.01 Long term (current) use of anticoagulants; Z79.899 Other long term (current) drug therapy; F17.200 Nicotine dependence, unspecified, uncomplicated
CPT/HCPCS: 54161; 82947; 88304; J0690; J1100; J2250; J2405; J2795; J3010

== ENCOUNTER → 2022-02-03 12:58 | Outpatient (REF) | payer MEDICAID, SELFPAY | LOC: HO.SL 12:58 | PROVIDERS: PCP Nurse Practitioner Family; Visit Provider Nurse Practitioner Family | DX: G47.33 Obstructive sleep apnea (adult) (pediatric) (principal) | CPT/HCPCS: 95806 ==

== ENCOUNTER → 2022-06-16 12:43 | Outpatient (BNVA) | payer MEDICAID, SELFPAY | PROVIDERS: Visit Provider Urology | DX: E11.69 Type 2 diabetes mellitus with other specified complication (principal); N52.1 Erectile dysfunction due to diseases classified elsewhere; Z98.890 Other specified postprocedural states | CPT/HCPCS: 99212 ==

== ENCOUNTER 2022-11-19 08:01 | Outpatient (REF) | payer MEDICAID, SELFPAY ==
[2022-11-19 09:33] LABS: Prostate Specific Antigen 0.57 ng/mL (<0.05-4.0)
[2022-11-26 16:58] LABS: Testosterone, Total 323 ng/dL (250-1100)
== END 2022-11-19 08:02 | disposition home or self-care (01) ==
LOC: HO.LAB 08:01
PROVIDERS: PCP Registered Nurse; Visit Provider Urology
DX: Z12.5 Encounter for screening for malignant neoplasm of prostate (principal); E11.69 Type 2 diabetes mellitus with other specified complication; N52.1 Erectile dysfunction due to diseases classified elsewhere
CPT/HCPCS: 36415; 84153; 84403

== ENCOUNTER → 2022-12-08 08:59 | Outpatient (BNVA) | payer MEDICAID, SELFPAY | PROVIDERS: PCP Registered Nurse; Visit Provider Urology | DX: N47.1 Phimosis (principal); E11.69 Type 2 diabetes mellitus with other specified complication; N52.1 Erectile dysfunction due to diseases classified elsewhere | CPT/HCPCS: 99212 ==

== ENCOUNTER → 2023-01-06 08:48 | Outpatient (BNVA) | payer MEDICAID, SELFPAY | PROVIDERS: PCP Registered Nurse; Visit Provider Nurse Practitioner Family | DX: G43.019 Migraine without aura, intractable, without status migrainosus (principal); G47.19 Other hypersomnia; G47.30 Sleep apnea, unspecified; R06.83 Snoring | CPT/HCPCS: 99202 ==

== ENCOUNTER → 2023-01-20 19:30 | Outpatient (REF) | payer MEDICAID, SELFPAY | LOC: HO.SL 19:30 | PROVIDERS: Visit Provider Nurse Practitioner Family | DX: G47.33 Obstructive sleep apnea (adult) (pediatric) (principal); E66.09 Other obesity due to excess calories | CPT/HCPCS: 95810 ==

== ENCOUNTER → 2023-01-20 21:53 | Outpatient (BNV) | payer MEDICAID, SELFPAY | PROVIDERS: Visit Provider Psychiatry & Neurology Neurology | DX: G47.33 Obstructive sleep apnea (adult) (pediatric) (principal) | CPT/HCPCS: 95810 ==

== ENCOUNTER 2023-10-14 08:08 | Outpatient (REF) | payer MEDICAID, SELFPAY ==
[2023-10-14 09:51] LABS: Prostate Specific Antigen 0.65 ng/mL (<0.05-4.0)
== END 2023-10-14 08:09 | disposition home or self-care (01) ==
LOC: HO.LAB 08:08
PROVIDERS: Visit Provider Urology
DX: E11.69 Type 2 diabetes mellitus with other specified complication (principal); N52.1 Erectile dysfunction due to diseases classified elsewhere
CPT/HCPCS: 36415; 84153; 84403

== ENCOUNTER 2023-10-31 15:11 | Outpatient (REF) | payer MEDICAID, SELFPAY ==
[2023-10-31 16:11] LABS: MANUAL DIFF FLAG NO
[2023-10-31 16:18] LABS: Basophils Absolute Auto 0.1 X10*3/uL (0.0-0.2); Basophils Percent Auto 0.7 % (0-2); Eosinophils Absolute Auto 0.3 X10*3/uL (0.0-0.4); Eosinophils Percent Auto 3.1 % (0-4); Hematocrit 48.9 % (42.0-52.0); Hemoglobin 16.3 g/dl (14.0-18.0); Imm Gran Abs Auto 0.07 X10*3/uL (0.00-0.03); Imm Gran Pct Auto 0.7 % (0.0-0.4); Lymphocytes Absolute Auto 3.6 X10*3/uL (1.2-4.9); Mean Corpuscular HGB Conc 33.3 g/dl (31.0-36.0); Mean Corpuscular Hemoglobin 27.7 pg (27.0-33.0); Mean Platelet Volume 9.7 fL (9.4-12.4); Monocytes Absolute Auto 0.8 X10*3/uL (0.1-1.2); Monocytes Percent Auto 8.4 % (2-11); Neutrophils Absolute Auto 5.1 x10*3/uL (2.0-8.3); Neutrophils Percent Auto 51.1 % (45-73); Platelet Count 272 X10*3/uL (160-400); Red Blood Count 5.89 X10*6/uL (4.60-5.80); Red Cell Distribution Width 13.2 % (11.0-16.0); White Blood Count 9.9 X10*3/uL (4.8-10.8)
[2023-10-31 16:38] LABS: Microalbum/Creatinine Ratio Ur 124.6 ug/mg cr (<30)
[2023-10-31 16:50] LABS: Alanine Aminotransferase 21 U/L (0-40); Albumin Level 4.1 g/dL (3.5-5.0); Alkaline Phosphatase 125 U/L (39-117); Anion Gap 13 (12-20); Aspartate Amino Transferase 13 U/L (5-37); Bilirubin Total 0.3 mg/dL (0.0-1.0); Blood Urea Nitrogen 11 mg/dL (9-16); Calcium 9.8 mg/dL (8.4-10.2); Carbon Dioxide 28 mmol/L (22-29); Chloride 104 mmol/L (96-108); Cholesterol 234 mg/dL (<200); Estimated Glomerular Filt Rate > 60; Glucose Random 156 mg/dL (60-115); HDL Cholesterol 48 mg/dL (>40); LDL Cholesterol Calculated 130 mg/dL (<100); Potassium 3.8 mmol/L (3.3-5.1); Sodium 141 mmol/L (135-145); Total Protein 7.3 g/dL (6.5-8.0); Triglycerides 282 mg/dL (<150)
[2023-10-31 17:05] LABS: TSH reflex Free T4 1.03 uIU/mL (0.32-4.0); Vitamin D 25-OH Total 29.1 ng/mL (>30)
[2023-10-31 17:18] LABS: Folate 12.2 ng/mL (> or = 4.0); Vitamin B12 258 pg/mL (200-900)
[2023-10-31 19:14] LABS: Reflex LDLD? No
== END 2023-10-31 15:12 | disposition home or self-care (01) ==
LOC: HO.HHCL 15:11
PROVIDERS: Visit Provider Family Medicine
DX: E11.65 Type 2 diabetes mellitus with hyperglycemia (principal); E53.8 Deficiency of other specified B group vitamins; E55.9 Vitamin D deficiency, unspecified
CPT/HCPCS: 36415; 80053; 80061; 82043; 82306; 82570; 82607; 82746; 84443; 85025

== ENCOUNTER 2023-11-02 13:57 | Outpatient (AMB) | payer MEDICAID, SELFPAY ==
--- NOTE | 2023-11-02 14:18 | MHC.OFFVIS ---
Intake Visit Reasons: 6M PSA(set) Intake Note: Patient is Present for Follow Up Urology Med: Tadalafil Antibiotic Allergy: None Blood Thinner: Aspirin Allergies empagliflozin [From [employer]] Adverse Reaction (Intermediate, Verified 01/06/23 08:54) Rash HPI Comments Details: Jesus is a pleasant male. He is a patient of . Seen for following urologic conditions - phimosis - erectile dysfunction Kiswahili translation provided in office by qualified medical administrator Has been in [place] so did not get refill Had headache when use 20 mg on demand Will switch to trial 100 mg sildenafil Remains on 10 mg daily tadalafil Testosterone did get repeated on last set of lab work Phimosis Ongoing Narrowing ring on foreskin Background diabetes Circumcision performed 01/29 Erectile dysfunction with borderline low testosterone Progressive Unable to obtain and maintain erection Current therapy 10 mg daily Concurrent diagnosis diabetes with high-intensity lipid management, multi agent diabetic management 11/30 T 323 PFSH Medical History COVID-19 vaccine series completed Tubular adenoma Obesity due to excess calories Diabetes type 2, uncontrolled Type 2 diabetes mellitus with diabetic polyneuropathy Proteinuria Type 2 diabetes mellitus with other diabetic kidney complication On anticoagulant therapy Elevated cholesterol CAD (coronary artery disease) Sleep apnea Diabetes HTN (hypertension) H/O myocardial infarction, greater than 8 weeks Surgical History Hx of colonoscopy H/O colonoscopy Hx of hernia repair Hx of heart artery stent History of incisional hernia repair Family History Mother Diabetes Father HTN (hypertension) Diabetes Maternal Grandmother Diabetes Maternal Grandfather Diabetes Family/Other Diabetes Family/Other Acute renal failure on dialysis Social History Household Members: Spouse, Family, Children and Other Are you a primary child care center assistant director to a significant other at home: No Do you presently have visiting nurse or other home services: No Alcohol intake: current Alcohol intake frequency: holidays/special occasions only Patient Tobacco Use Status: Current everyday Tobacco user Tobacco use type: Cigarette Cigarettes Per Day: 10 Review of Systems Const Denies chills and Denies fever(s) Card Reports no additional complaints and Denies syncope Resp Denies cough GI Denies abdominal pain and Denies heartburn Reports as per HPI and Denies change in libido Neuro Denies syncope Psych Denies change in libido Endo Denies change in libido Physical Exam Const General: cooperative, healthy appearing, comfortable and no acute distress Orientation/consciousness: patient oriented x3 HEENT Face and sinus: Yes normal facial exam Mouth: moist mucous membranes Neck Neck: Yes normal visual inspection, Yes full ROM and Yes trachea midline Chest Chest palpation & inspection: normal inspection of the chest Resp Effort & Inspection: normal respiratory effort, able to speak in complete sentences and no respiratory distress GI Inspection: Yes normal to inspection Back/Spine/Pelvis Cervical Spine: normal cervical lordosis Thoracic/Lumbar Spine: thoracic and lumbar spine normal to inspection Skin General skin exam: no rashes or lesions noted Neuro General: patient oriented x3, gait normal, tone normal and moves all extremities Extrem General: Yes normal to inspection and Yes capillary refill normal Assessment & Plan Assessment & Plan (1) Erectile dysfunction associated with type 2 diabetes mellitus: Code(s): E11.69 - Type 2 diabetes mellitus with other specified complication; N52.1 - Erectile dysfunction due to diseases classified elsewhere Category: Medical Plan Six-month follow-up tele Medications: New sildenafil administer 60 minutes before intended activity 100 mg PO ONCE 30 days PRN 30 tabs 1RF sexual activity E11.69 - Type 2 diabetes mellitus with other specified complication, N52.1 - Erectile dysfunction due to diseases classified elsewhere Patient Instructions: Imaging studies, laboratory and physical exam results were discussed and reviewed in detail. No major barriers to patient understanding were identified. An opportunity to ask questions regarding the treatment plan was provided. All questions were answered. The patient expressed understanding and agreement with the above treatment plan. The patient is aware they should contact our office by phone for worsening of their current condition or the appearance of new urologic symptoms. Compliance is encouraged with any medications and followup testing that is ordered. It is a privilege to participate in the urologic care of your patient. If you have any questions or concerns regarding treatment for the above conditions, or other urologic issues, please do not hesitate to contact me. The office telephone contact is [phone]. This note is constructed using voice recognition software. While every effort has been made to ensure accuracy respite coordinator errors may have been included. Yours sincerely, Dr Kaiden Hernández MD, [facility] - Urology Providers of Expert, Compassionate Care for the Genitourinary System Coding Level of Care Code Est Pt Level 4 (94875) Diagnoses Erectile dysfunction associated with type 2 diabetes mellitus E11.69; N52.1
== END 2023-11-02 14:39 | disposition home or self-care (01) ==
PROVIDERS: Referring Provider Registered Nurse; Visit Provider Urology
DX: E11.69 Type 2 diabetes mellitus with other specified complication (principal); N52.1 Erectile dysfunction due to diseases classified elsewhere
CPT/HCPCS: 99214

== ENCOUNTER → 2023-11-02 13:57 | Outpatient (BNVA) | payer MEDICAID, SELFPAY | PROVIDERS: Visit Provider Urology | DX: E11.69 Type 2 diabetes mellitus with other specified complication (principal); N52.1 Erectile dysfunction due to diseases classified elsewhere | CPT/HCPCS: 99212 ==

== ENCOUNTER 2023-11-15 12:49 | Outpatient (REF) | payer MEDICAID, SELFPAY ==
[2023-11-15 14:18] LABS: Magnesium 1.9 mg/dL (1.6-2.6)
[2023-11-19 16:13] LABS: Testosterone, Total 253 ng/dL (250-1100)
== END 2023-11-15 12:50 | disposition home or self-care (01) ==
LOC: HO.LAB 12:49
PROVIDERS: Urology; PCP Family Medicine; Visit Provider Family Medicine
DX: E83.42 Hypomagnesemia (principal); E11.69 Type 2 diabetes mellitus with other specified complication; N52.1 Erectile dysfunction due to diseases classified elsewhere
CPT/HCPCS: 36415; 83735; 84403

== ENCOUNTER 2024-01-20 10:07 | Outpatient (AMB) | payer MEDICAID, SELFPAY ==
--- NOTE | 2024-01-20 07:54 | MHC.OFFVIS ---
Intake Visit Reasons: current smoker Allergies empagliflozin [From [employer]] Adverse Reaction (Intermediate, Verified 01/06/23 08:54) Rash HPI HPI current smoker: Details: Initial visit for this 63yo smoker with a 30+PYH. Patient has been smoking since age 19 for 44 years at 1/2-1ppd. . Denies marijuana use. Denies second hand smoke exposure. Denies exposure to chemicals or substances like asbestos. . Denies known family history of lung cancer. Denies personal history of cancers. Denies chest CT in last year. . Denies recent travel outside the [place]. Denies recent respiratory illness or recent hospitalization for respiratory issues. Denies testing positive for COVID. Admits receiving COVID Vaccine. x 4. . Denies fever, chills, new/worsening cough, hemoptysis, hoarseness or dysphagia. Denies significant chest pain, significant dyspnea or unintentional weight loss. Patient Lung Cancer Screening Questionnaire reviewed with patient by provider. . Shared Decision Making Completed. Patient meets criteria. Discussed in detail with patient, the risk vs benefit of LDCT screening. Patient consents to proceed with scan. Discussed smoking cessation. 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 Sleep apnea Nicotine dependence, cigarettes, uncomplicated Enlarged prostate Tubular adenoma Obesity due to excess calories Proteinuria COVID-19 vaccine series completed Surgical History (Updated 12/12/23 @ 10:49 by Shannan Henderson PA-C) History of heart artery stent History of laparoscopic cholecystectomy History of incisional hernia repair History of circumcision History of colonoscopy Family History Mother Diabetes Father HTN (hypertension) Diabetes Maternal Grandmother Diabetes Maternal Grandfather Diabetes Family/Other Diabetes Family/Other Acute renal failure on dialysis Social History (Updated 01/20/24 @ 10:14 by Shannan Henderson PA-C) Household Members: Spouse, Family, Children and Other Are you a primary child care development specialist to a significant other at home: No Do you presently have visiting nurse or other home services: No Alcohol intake: current Alcohol intake frequency: holidays/special occasions only Patient Tobacco Use Status: Current everyday Tobacco user Tobacco use type: Cigarette Cigarettes Per Day: 10 Years Smoked: (onset 19yo, 1/2-1ppd x 44yrs, 30+PYH) Assessment & Plan Assessment & Plan (1) Nicotine dependence, cigarettes, uncomplicated: Comment: (current smoker - onset 19yo, 1/2-1ppd x 44yrs, 30+PYH) Code(s): F17.210 - Nicotine dependence, cigarettes, uncomplicated Category: Medical Plan: - SDM visit completed today in office. - Patient meets criteria for LDCT for lung cancer screening purposes and is asymptomatic. - Smoking cessation counseling offered. Patients can always call [phone]. - Will arrange for a LDCT scan of the chest for screening purposes at [facility]. - Risks, benefits, and alternatives were discussed in detail and the patient agrees to proceed. - Risks discussed include but are not limited to: radiation exposure, anxiety during testing and while awaiting results, false negatives, false positives and possibility of additional intervention such as further imaging or surgical procedures for benign disease. - Benefits are obviously detection of lung cancer at an early stage which can lead to improved outcomes. - Discussed the importance of screening program compliance with adherence to yearly LDCT scan as scheduled - or sooner interval scans for personalized screening regimen. - Discussed follow up plan. Our office will send a letter discussing results and if needed set up phone call and office visit based on CT findings. - Patient educated on results categorization and the management decisions for suspicious findings potentially found on the screening LDCT scan. Any patient with a Lung RADS score of 3 or 4 will be reviewed by a multidisciplinary team at [facility] to form a plan of action in regards to scan findings. - If further work up is warranted for a suspicious lung finding this will be followed by the Lung Cancer Screening program in conjunction with the Thoracic Surgery Department at [facility]. - A copy of the office note and LDCT will be sent to the patient's PCP - as well as documentation on any associated further plans of care. - Incidental findings on LDCT are the PCP's responsibility. These findings are indicated with an S finding on the LDCT Assessment. A note discussing the findings will be sent to the PCP who is then responsible for further management. - All questions answered.? Coding Level of Care Code Lung Cancer Screening G0296 Diagnoses Nicotine dependence, cigarettes, uncomplicated F17.210
== END 2024-01-20 10:33 | disposition home or self-care (01) ==
PROVIDERS: PCP Family Medicine; Referring Provider Family Medicine; Visit Provider Physician Assistant Medical
DX: F17.210 Nicotine dependence, cigarettes, uncomplicated (principal)
CPT/HCPCS: G0296

== ENCOUNTER 2024-01-20 10:21 | Outpatient (REF) | payer MEDICAID, SELFPAY ==
--- NOTE | ~2024-01-20 | CT_ITS ---
EXAMINATION: CT LOW-DOSE SCREENING CHEST WITHOUT CONTRAST CLINICAL INFORMATION: Nicotine dependence, cigarettes, uncomplicated. The patient is a current smoker with a 35 pack-year history of smoking. COMPARISON: None available. TECHNIQUE: Multidetector volumetric CT imaging of the chest is performed on a Siemens SOMATOM Definition scanner without contrast using low dose technique. Additional 2D coronal and sagittal reformatted images and axial 3D maximum intensity projection (MIP) images are generated on the CT workstation. This CT examination was performed using dose optimization techniques as appropriate, variously including the following: *Automated exposure control *Adjustment of mA and/or kV according to patient size (this includes techniques or standardized protocols for targeted exams where dose is matched to indication/reason for exam; i.e. extremities or head) *Use of iterative reconstruction technique TOTAL EXAM DLP: 58 mGy-cm. CTDIvol: 1.91 mGy. FINDINGS: PULMONARY NODULES: -Calcified pleural-based granuloma measuring 4 mm right upper lobe laterally (series 6, image 70). -A few additional small calcified granulomata are present scattered in both lungs. These are benign. -4 mm nodule left mid major fissure, triangular appearance, consistent with intrapulmonary lymph node (series 5, image 251). -3 mm nodule posterolateral left costophrenic sulcus, pleural-based, (series 5, image 395). LUNGS: Lungs are clear without evidence of consolidation or groundglass opacities. Minimal linear atelectasis or scarring left medial lower lobe. -Small airways appear normal without thickening, or endobronchial filling defect. There is minimal bronchiectasis in the lower lobes. -The trachea and major bronchi are normal. -There are no pleural effusions or masses. MEDIASTINUM: -No discrete thyroid abnormality on CT. -No abnormal mediastinal or hilar lymphadenopathy. -The aorta is normal in caliber and course with minimal calcification. -Main pulmonary artery is normal in size. -Heart size is normal. There is no pericardial effusion. -There is a small type I hiatus hernia. The esophagus is otherwise normal in appearance. CORONARY ARTERY CALCIFICATION: There is focal RCA and circumflex increased densities; these may represent stents. CHEST WALL/AXILLA: There are no masses or abnormal lymph nodes. UPPER ABDOMEN: -There has been a cholecystectomy. -There is mild left adrenal hyperplasia. OSSEOUS STRUCTURES: -No suspicious lytic or blastic bone lesions. Minimal right convex thoracic scoliosis with associated bridging disc osteophytes spanning the central T-spine, suggestive of DISH. CT/CT lung screening IMPRESSION: 1. A few tiny noncalcified pulmonary nodules measuring up to 3 mm. Several tiny calcified granulomata. 2. No suspicious nodules. 3. No active lung disease. 4. Small type I hiatus hernia. Cholecystectomy. ASSESSMENT: 1. Lung-RADS Category 2: Benign appearance or behavior of nodules. 2. Lung-RADS Category S: None. RECOMMENDATION: Continued routine annual low-dose CT lung screening in 1 year is recommended. An order for CT CHEST LOW DOSE CANCER SCREENING ([id number]) can be placed.
== END 2024-01-20 10:22 | disposition home or self-care (01) ==
LOC: HO.CT 10:21
PROVIDERS: Visit Provider Physician Assistant Medical
DX: Z12.2 Encounter for screening for malignant neoplasm of respiratory organs (principal); F17.210 Nicotine dependence, cigarettes, uncomplicated
CPT/HCPCS: 71271; G0296

== ENCOUNTER → 2024-01-20 10:21 | Outpatient (BNV) | payer MEDICAID, SELFPAY | PROVIDERS: Visit Provider Radiology Diagnostic Radiology | DX: F17.200 Nicotine dependence, unspecified, uncomplicated (principal) | CPT/HCPCS: 71271 ==

== ENCOUNTER 2024-03-27 14:01 | Outpatient (AMB) | payer MEDICAID, SELFPAY ==
--- NOTE | 2024-03-27 13:41 | MHC.OFFVIS ---
Intake Visit Reasons: 3m/med review Allergies empagliflozin [From Jardiance] Adverse Reaction (Intermediate, Verified 05/01/24 13:07) Rash HPI Comments Details: Jesus is a pleasant male. He is a patient of . Seen for following urologic conditions - phimosis - erectile dysfunction - hypogonadism Comoran translation provided in office by qualified diagnostic medical sonographer Six-month follow-up Low testosterone in setting of diabetes Trial testosterone gel Remains on 10 mg daily tadalafil Testosterone did get repeated on last set of lab work Phimosis Ongoing Narrowing ring on foreskin Background diabetes Circumcision performed 01/29 Erectile dysfunction with borderline low testosterone Progressive Unable to obtain and maintain erection Current therapy 10 mg daily Concurrent diagnosis diabetes with high-intensity lipid management, multi agent diabetic management 11/30 T 323, 12/01 253 PFSH Medical History CAD (coronary artery disease) On anticoagulant therapy H/O myocardial infarction, greater than 8 weeks (~05/2019) HTN (hypertension) Elevated cholesterol Diabetes type 2, uncontrolled 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 Sleep apnea Nicotine dependence, cigarettes, uncomplicated Enlarged prostate Tubular adenoma Obesity due to excess calories Proteinuria COVID-19 vaccine series completed Surgical History History of heart artery stent History of laparoscopic cholecystectomy History of incisional hernia repair History of circumcision History of colonoscopy Family History Mother Diabetes Father HTN (hypertension) Diabetes Maternal Grandmother Diabetes Maternal Grandfather Diabetes Family/Other Diabetes Family/Other Acute renal failure on dialysis Social History Household Members: Spouse, Family, Children and Other Are you a primary career development director to a significant other at home: No Do you presently have visiting nurse or other home services: No Alcohol intake: current Alcohol intake frequency: holidays/special occasions only Patient Tobacco Use Status: Current everyday Tobacco user Tobacco use type: Cigarette Cigarettes Per Day: 10 Years Smoked: (onset 19yo, 1/2-1ppd x 44yrs, 30+PYH) Review of Systems Const Denies chills and Denies fever(s) Card Reports no additional complaints and Denies syncope Resp Denies cough GI Denies abdominal pain and Denies heartburn Reports as per HPI and Denies change in libido Neuro Denies syncope Psych Denies change in libido Endo Denies change in libido Physical Exam Const General: cooperative, healthy appearing, comfortable and no acute distress Orientation/consciousness: patient oriented x3 HEENT Face and sinus: Yes normal facial exam Mouth: moist mucous membranes Neck Neck: Yes normal visual inspection, Yes full ROM and Yes trachea midline Chest Chest palpation & inspection: normal inspection of the chest Resp Effort & Inspection: normal respiratory effort, able to speak in complete sentences and no respiratory distress GI Inspection: Yes normal to inspection Back/Spine/Pelvis Cervical Spine: normal cervical lordosis Thoracic/Lumbar Spine: thoracic and lumbar spine normal to inspection Skin General skin exam: no rashes or lesions noted Neuro General: patient oriented x3, gait normal, tone normal and moves all extremities Extrem General: Yes normal to inspection and Yes capillary refill normal Assessment & Plan Assessment & Plan (1) Erectile dysfunction associated with type 2 diabetes mellitus: Code(s): E11.69 - Type 2 diabetes mellitus with other specified complication; N52.1 - Erectile dysfunction due to diseases classified elsewhere Category: Medical (2) Hypogonadism in male: Code(s): E29.1 - Testicular hypofunction Category: Medical Plan Trial testosterone replacement Patient Instructions: Imaging studies, laboratory and physical exam results were discussed and reviewed in detail. No major barriers to patient understanding were identified. An opportunity to ask questions regarding the treatment plan was provided. All questions were answered. The patient expressed understanding and agreement with the above treatment plan. The patient is aware they should contact our office by phone for worsening of their current condition or the appearance of new urologic symptoms. Compliance is encouraged with any medications and followup testing that is ordered. It is a privilege to participate in the urologic care of your patient. If you have any questions or concerns regarding treatment for the above conditions, or other urologic issues, please do not hesitate to contact me. The office telephone contact is [phone]. This note is constructed using voice recognition software. While every effort has been made to ensure accuracy fare collector errors may have been included. Yours sincerely, Dr Kaiden Hernández MD, [facility] - Urology Providers of Expert, Compassionate Care for the Genitourinary System Coding Level of Care Code Est Pt Level 4 (39955) Diagnoses Erectile dysfunction associated with type 2 diabetes mellitus E11.69; N52.1 Hypogonadism in male E29.1
== END 2024-03-27 14:03 | disposition left against medical advice (07) ==
LOC: HO.HUSH 14:01
PROVIDERS: Visit Provider Urology
DX: E11.69 Type 2 diabetes mellitus with other specified complication (principal); N52.1 Erectile dysfunction due to diseases classified elsewhere; E29.1 Testicular hypofunction
CPT/HCPCS: 99214

== ENCOUNTER → 2024-03-27 14:01 | Outpatient (BNVA) | payer MEDICAID, SELFPAY | PROVIDERS: Visit Provider Urology | DX: E11.69 Type 2 diabetes mellitus with other specified complication (principal); E29.1 Testicular hypofunction | CPT/HCPCS: 99212 ==

== ENCOUNTER 2024-05-01 12:58 | Outpatient (AMB) | payer MEDICAID, SELFPAY ==
--- NOTE | 2024-05-01 13:04 | A.OFFVIS_ITS ---
Intake Visit Reasons: 6m follow up Intake Note: Patient is Present for Telephone Follow Up Med Review Urology Med: Tadalafil, Sildenafil Antibiotic Allergy: None Blood Thinner: Clopidogrel, Aspirin Recent PSA: 10/2023 0.65 Recent Testosterone: 11/2023 253 Hand Laminator Required: Yes Hand Laminator Language: Honduran Accompanied by: Self / Same As Patient Allergies empagliflozin [From Jardiance] Adverse Reaction (Intermediate, Verified 05/01/24 13:07) Rash Medication List - Last Reconciled 05/01/24 by Kaiden Hernández MD acetaminophen 650 mg PO Q4H PRN alcohol swabs (Alcohol Prep Pads) 0 pad topical TID amlodipine 5 mg PO DAILY aspirin (Adult Low Dose Aspirin) 81 mg PO DAILY blood sugar diagnostic (FreeStyle Lite Strips) As directed cholecalciferol (vitamin D3) 50 mcg PO DAILY clopidogrel (Plavix) 75 mg PO DAILY dulaglutide (Trulicity) 3 mg (0.5 mL) subcut QWEEK lancets (TRUEplus Lancets) As directed lisinopril-hydrochlorothiazide 20-12.5 mg 1 tab PO DAILY metoprolol succinate ER 1 tab PO DAILY nitroglycerin 1 tab sublingual NEEDED PRN omega-3 acid ethyl esters 2 caps PO BID rosuvastatin 40 mg PO DAILY semaglutide (Ozempic) 0.5 mg subcut QWEEK sildenafil 100 mg PO .PRN PRN 30 days tadalafil 10 mg PO DAILY 30 days HPI Comments Details: Jesus is a pleasant male. He is a patient of . Seen for following urologic conditions - phimosis - erectile dysfunction - hypogonadism Telemedicine Evaluation 15 min Consultation [employer] [place] Video Honduran translation provided in office by qualified certified medical asst Six-month follow-up Low testosterone in setting of diabetes Trial testosterone gel followup Remains on 10 mg daily tadalafil Phimosis Ongoing Narrowing ring on foreskin Background diabetes Circumcision performed 01/29 Erectile dysfunction with borderline low testosterone Progressive Unable to obtain and maintain erection Current therapy 10 mg daily tadalafil Concurrent diagnosis diabetes with high-intensity lipid management, multi agent diabetic management 11/30 T 323, 12/01 253 [facility] Medical History CAD (coronary artery disease) On anticoagulant therapy H/O myocardial infarction, greater than 8 weeks (~05/2019) HTN (hypertension) Elevated cholesterol Diabetes type 2, uncontrolled 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 Sleep apnea Nicotine dependence, cigarettes, uncomplicated Enlarged prostate Tubular adenoma Obesity due to excess calories Proteinuria COVID-19 vaccine series completed Surgical History History of heart artery stent History of laparoscopic cholecystectomy History of incisional hernia repair History of circumcision History of colonoscopy Family History Mother Diabetes Father HTN (hypertension) Diabetes Maternal Grandmother Diabetes Maternal Grandfather Diabetes Family/Other Diabetes Family/Other Acute renal failure on dialysis Social History Household Members: Spouse, Family, Children and Other Are you a primary lawn care specialist to a significant other at home: No Do you presently have visiting nurse or other home services: No Alcohol intake: current Alcohol intake frequency: holidays/special occasions only Patient Tobacco Use Status: Current everyday Tobacco user Tobacco use type: Cigarette Cigarettes Per Day: 10 Years Smoked: (onset 19yo, 1/2-1ppd x 44yrs, 30+PYH) Review of Systems Const All systems reviewed & are unremarkable except as noted in HPI and below Reports no additional complaints Resp Reports no additional complaints GI Reports no additional complaints Reports as per HPI Musc Reports no additional complaints Physical Exam Telemedicine evaluation Appropriate responses Regular breathing rate and rhythm HEENT Head: Yes normal to inspection Ears: hearing grossly normal bilaterally Eyes General: appearance normal, both eyes and all related structures Neck Neck: Yes normal visual inspection Chest Chest palpation & inspection: normal inspection of the chest Resp Effort & Inspection: normal respiratory effort and able to speak in complete sentences Telehealth Telehealth Location of provider rendering services: practice address Location of patient: address on file Patient Identification confirmed using: Name, : Yes Telehealth method: voice only Patient verbally consented to treatment: Yes Patient verbally consented to billing insurance company: Yes Patient informed of any privacy concerns related to visit: Yes Assessment & Plan Assessment & Plan (1) Erectile dysfunction associated with type 2 diabetes mellitus: Code(s): E11.69 - Type 2 diabetes mellitus with other specified complication; N52.1 - Erectile dysfunction due to diseases classified elsewhere Category: Medical (2) Enlarged prostate: Comment: (5.5 x 4.2cm on 10/09/[address]) Code(s): N40.0 - Benign prostatic hyperplasia without lower urinary tract symptoms Category: Medical Plan Six-month follow-up labs office Orders: Orders Prostate Specific Antigen 6 Months E11.69 - Type 2 diabetes mellitus with other specified complication, N52.1 - Erectile dysfunction due to diseases classified elsewhere Testosterone, Total 6 Months E11.69 - Type 2 diabetes mellitus with other specified complication, N52.1 - Erectile dysfunction due to diseases classified elsewhere Patient Instructions: Imaging studies, laboratory and physical exam results were discussed and reviewed in detail. No major barriers to patient understanding were identified. An opportunity to ask questions regarding the treatment plan was provided. All questions were answered. The patient expressed understanding and agreement with the above treatment plan. The patient is aware they should contact our office by phone for worsening of their current condition or the appearance of new urologic symptoms. Compliance is encouraged with any medications and followup testing that is ordered. It is a privilege to participate in the urologic care of your patient. If you have any questions or concerns regarding treatment for the above conditions, or other urologic issues, please do not hesitate to contact me. The office telephone contact is [phone]. This note is constructed using voice recognition software. While every effort has been made to ensure accuracy occupational therapist assistants errors may have been included. Yours sincerely, Dr Kaiden Hernández MD, [facility] - Urology Providers of Expert, Compassionate Care for the Genitourinary System Coding Level of Care Code Tele Est Pt Level 3 (12957) Diagnoses Erectile dysfunction associated with type 2 diabetes mellitus E11.69; N52.1 Enlarged prostate N40.0
== END 2024-05-01 14:56 | disposition home or self-care (01) ==
PROVIDERS: PCP Family Medicine; Visit Provider Urology
DX: E11.69 Type 2 diabetes mellitus with other specified complication (principal); N52.1 Erectile dysfunction due to diseases classified elsewhere; N40.0 Benign prostatic hyperplasia without lower urinary tract symptoms
CPT/HCPCS: 99213

== ENCOUNTER → 2024-05-01 12:58 | Outpatient (BNVA) | payer MEDICAID, SELFPAY | PROVIDERS: PCP Family Medicine; Visit Provider Urology ==

== ENCOUNTER 2024-08-08 08:06 | Outpatient (REF) | payer MEDICAID, SELFPAY ==
[2024-08-08 11:30] LABS: MANUAL DIFF FLAG NO
[2024-08-08 11:44] LABS: Basophils Absolute Auto 0.1 X10*3/uL (0.0-0.2); Basophils Percent Auto 0.6 % (0-2); Eosinophils Absolute Auto 0.3 X10*3/uL (0.0-0.4); Eosinophils Percent Auto 2.9 % (0-4); Hematocrit 48.7 % (42.0-52.0); Hemoglobin 16.5 g/dl (14.0-18.0); Imm Gran Abs Auto 0.06 X10*3/uL (0.00-0.03); Imm Gran Pct Auto 0.6 % (0.0-0.4); Lymphocytes Absolute Auto 2.5 X10*3/uL (1.2-4.9); Lymphocytes Percent Auto 24.5 % (20-40); Mean Corpuscular HGB Conc 33.9 g/dl (31.0-36.0); Mean Corpuscular Hemoglobin 28.8 pg (27.0-33.0); Mean Corpuscular Volume 85.1 fL (80.0-98.0); Mean Platelet Volume 10.2 fL (9.4-12.4); Monocytes Absolute Auto 0.9 X10*3/uL (0.1-1.2); Monocytes Percent Auto 9.3 % (2-11); Neutrophils Absolute Auto 6.3 x10*3/uL (2.0-8.3); Neutrophils Percent Auto 62.1 % (45-73); Platelet Count 259 X10*3/uL (160-400); Red Blood Count 5.72 X10*6/uL (4.60-5.80); Red Cell Distribution Width 13.3 % (11.0-16.0); White Blood Count 10.1 X10*3/uL (4.8-10.8)
[2024-08-08 12:06] LABS: Alanine Aminotransferase 11 U/L (0-40); Albumin Level 3.8 g/dL (3.5-5.0); Alkaline Phosphatase 122 U/L (39-117); Anion Gap 11 (12-20); Aspartate Amino Transferase 16 U/L (5-37); Bilirubin Total 0.4 mg/dL (0.0-1.0); Blood Urea Nitrogen 14 mg/dL (9-16); Carbon Dioxide 26 mmol/L (22-29); Chloride 106 mmol/L (96-108); Cholesterol 214 mg/dL (<200); Estimated Glomerular Filt Rate > 60; Glucose Random 213 mg/dL (60-115); HDL Cholesterol 45 mg/dL (>40); LDL Cholesterol Calculated 140 mg/dL (<100); Potassium 4.2 mmol/L (3.3-5.1); Sodium 139 mmol/L (135-145); Triglycerides 146 mg/dL (<150)
[2024-08-08 12:26] LABS: TSH reflex Free T4 1.21 uIU/mL (0.32-4.0); Vitamin D 25-OH Total 39.8 ng/mL (>30)
[2024-08-08 12:36] LABS: Folate 14.5 ng/mL (> or = 4.0); Vitamin B12 181 pg/mL (200-900)
[2024-08-08 12:45] LABS: Creatinine Urine 113.85 mg/dL; Microalbum/Creatinine Ratio Ur 50.9 ug/mg cr (<30)
[2024-08-08 12:50] LABS: Reflex LDLD? No
[2024-08-08 13:02] LABS: Prostate Specific Antigen 0.56 ng/mL (<0.05-4.0)
[2024-08-12 14:28] LABS: Testosterone, Total 339 ng/dL (250-1100)
== END 2024-08-08 08:07 | disposition home or self-care (01) ==
LOC: HO.HHCL 08:06
PROVIDERS: Family Medicine; Visit Provider Urology
DX: Z12.5 Encounter for screening for malignant neoplasm of prostate (principal); N52.1 Erectile dysfunction due to diseases classified elsewhere; I25.9 Chronic ischemic heart disease, unspecified; E11.69 Type 2 diabetes mellitus with other specified complication; E11.65 Type 2 diabetes mellitus with hyperglycemia; I10 Essential (primary) hypertension; R63.4 Abnormal weight loss; E55.9 Vitamin D deficiency, unspecified; E53.8 Deficiency of other specified B group vitamins
CPT/HCPCS: 36415; 80053; 80061; 82043; 82306; 82570; 82607; 82746; 84153; 84403; 84443; 85025

== ENCOUNTER 2024-10-01 11:35 | Emergency (ER) | payer MEDICAID, SELFPAY ==
[2024-10-01 11:53] VITALS: BP 150/94; PULSE 98; RESP 16; TEMP 36.6; O2SAT 97; BMI 30.7
--- NOTE | 2024-10-01 11:58 | ED.GENADULT ---
HPI - General Adult General Chief complaint: Allergic Reaction Stated complaint: allergic reaction Time Seen by Provider: 10/01/24 18:58 Source: patient and family Limitations: language barrier History of Present Illness ED Provider: Stacy Rangel PA-C HPI narrative: 63-year-old male with a history of coronary artery disease, hypertension, hyperlipidemia, diabetes who presents with a itchy rash times 4-5 days. The rash is pruritic, itchy, is diffuse over entire body. No one else has a same rash. No change in diet no new meds noted body products. Related Data Home Medications ?Medication ?Instructions ?Recorded ?Confirmed aspirin 81 mg tablet,delayed 81 mg PO DAILY 08/18/20 05/01/24 release (Adult Low Dose Aspirin) clopidogrel 75 mg tablet (Plavix) 75 mg PO DAILY 08/18/20 05/01/24 rosuvastatin 40 mg tablet 40 mg PO DAILY 08/18/20 05/01/24 acetaminophen 325 mg tablet 650 mg PO Q4H PRN Pain 09/23/20 05/01/24 amlodipine 5 mg tablet 5 mg PO DAILY 09/23/20 05/01/24 lisinopril 20 1 tab PO DAILY 09/23/20 05/01/24 mg-hydrochlorothiazide 12.5 mg tablet nitroglycerin 0.4 mg sublingual 1 tab sublingual NEEDED PRN 09/23/20 05/01/24 tablet Angina cholecalciferol (vitamin D3) 50 50 mcg PO DAILY 09/22/21 05/01/24 mcg (2,000 unit) tablet metoprolol succinate 50 mg 1 tab PO DAILY 11/17/21 05/01/24 tablet,extended release 24 hr omega-3 acid ethyl esters 1 gram 2 cap PO BID 11/17/21 05/01/24 capsule alcohol swabs (Alcohol Prep Pads) 0 pad topical TID 12/08/22 05/01/24 blood sugar diagnostic (FreeStyle #10 ea 12/08/22 05/01/24 Lite Strips) lancets 33 gauge (TRUEplus Lancets) #100 ea 12/08/22 05/01/24 semaglutide 0.25 mg or 0.5 mg (2 0.5 mg subcut QWEEK 05/01/24 05/01/24 mg/3 mL) subcutaneous pen injector (Ozempic) Previous Rx's ?Medication ?Instructions ?Recorded dulaglutide 3 mg/0.5 mL 3 mg (0.5 mL) subcut QWEEK #6 mL 12/04/21 subcutaneous pen injector (Trulicity) sildenafil 100 mg tablet 100 mg PO .PRN PRN sexual activity 11/09/23 30 days #30 tabs tadalafil 10 mg tablet 10 mg PO DAILY sexual activity 30 11/09/23 days #30 tabs cephalexin 500 mg capsule 500 mg PO BID #13 caps 10/01/24 methylprednisolone 4 mg tablets in 4 mg PO QAM #21 ea 10/01/24 a dose pack (Medrol (Denis)) Allergies Allergy/AdvReac Type Severity Reaction Status Date / Time empagliflozin AdvReac Intermediate Rash Verified 10/01/24 11:57 [From Jardiance] Review of Systems Review of Systems: Yes all other systems are reviewed and are negative Constitutional: Constitutional: Denies fatigue and Denies fever(s) Cardiovascular: Cardiovascular: Denies chest pain and Denies dyspnea Respiratory: Respiratory: Denies dyspnea Gastrointestinal: Gastrointestinal: Denies abdominal pain Integumentary/Breasts: Skin/Breast: Reports pruritus, Reports erythema and Reports rash Endocrine: Endocrine: Denies fatigue PMFSH Past Medical History Attestation statement: The following information was validated with the patient. Medical History CAD (coronary artery disease) On anticoagulant therapy H/O myocardial infarction, greater than 8 weeks (~05/2019) HTN (hypertension) Elevated cholesterol Diabetes type 2, uncontrolled 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 Sleep apnea Nicotine dependence, cigarettes, uncomplicated Enlarged prostate Tubular adenoma Obesity due to excess calories Proteinuria COVID-19 vaccine series completed Surgical History History of heart artery stent History of laparoscopic cholecystectomy History of incisional hernia repair History of circumcision History of colonoscopy Family History Family History Mother Diabetes Father HTN (hypertension) Diabetes Maternal Grandmother Diabetes Maternal Grandfather Diabetes Family/Other Diabetes Family/Other Acute renal failure on dialysis Social History Social History Household Members: Spouse, Family, Children and Other Are you a primary healthcare consulting manager to a significant other at home: No Do you presently have visiting nurse or other home services: No Alcohol intake: current Alcohol intake frequency: holidays/special occasions only Patient Tobacco Use Status: Current everyday Tobacco user Tobacco use type: Cigarette Cigarettes Per Day: 10 Years Smoked: (onset 19yo, 1/2-1ppd x 44yrs, 30+PYH) Smoked in Last 30 Days: No Use of substances other than those prescribed or required for medical reasons: No Advance Directives: No Advance Directives Information Provided: No Physical Exam ED Vital Signs: Vital Signs - 24 hr 10/01/24 11:53 10/01/24 19:15 10/01/24 20:18 Temperature 97.9 F 97.2 F 97.2 F Pulse Rate 98 88 88 Respiratory Rate 16 18 18 Blood Pressure 150/94 H 128/69 128/69 Pulse Oximetry 97 98 98 Oxygen Delivery Method Room Air Room Air Room Air BMI result Body Mass Index 30.7 Const Other: Alert Orientation/consciousness: patient oriented x3 Resp Effort & Inspection: normal respiratory effort Cardio Other: Normal peripheral perfusion Skin Other: Warm, dry. The rash that I am seeing is mildly pink, is faint, mildly elevated, overlying skin is dry, appears to be eczema. He does have some erythema over his feet in conjunction with the rash, that is different from the regions of the upper extremities and torso. Neuro General: patient oriented x3, gait normal, no focal motor deficits and CN's II-XI intact bilaterally Psych Other: Cooperative Course Course Course Narrative: This is a rapid medical exam performed by Stacy Rangel PA-C. The patient is 63-year-old male with a history of coronary artery disease, hypertension, hyperlipidemia, diabetes who presents with a itchy rash times 4-5 days. The rash is pruritic, itchy, is diffuse over entire body. No one else has a same rash. No change in diet no new meds noted body products. On exam of the rash resembles potential eczema over certain regions of the body. We will screen basic labs. The patient is stable and can return to the waiting room pending his full medical assessment. Medications Administered Discontinued Medications Generic Name Dose Route Start Last Admin Trade Name Freq PRN Reason Stop Dose Admin Cephalexin HCl 500 mg 10/01/24 19:15 10/01/24 19:45 Cephalexin 500 Mg Capsule PO 10/01/24 19:16 500 mg ONCE ONE Administration Methylprednisolone 8 mg 10/01/24 19:15 10/01/24 20:15 Methylprednisolone 4 Mg Tablet PO 10/01/24 19:16 8 mg ONCE ONE Administration Medical Decision Making Medical Decision Making [facility] Narrative: 63-year-old male with a history of coronary artery disease, hypertension, hyperlipidemia, diabetes who presents with a itchy rash times 4-5 days. The rash is pruritic, itchy, is diffuse over entire body. No one else has a same rash. No change in diet no new meds noted body products. Problem: Age, diabetes History: Per patient I have considered the following differential diagnoses: Contact dermatitis, shingles, cellulitis, scabies, bedbugs Plan: Overall the rash seems consistent with a eczema, it was dry and pruritic and widespread. He does have a region over the right foot that appears cellulitic. Perhaps from the scratching he broke the skin barrier, causing focal cellulitis. We will treat with a steroid taper given the widespread rash, and cephalexin for the cellulitis. No indication for labs or imaging. Lab Data 10/01/24 12:18 10/01/24 12:18 Labs: Lab Results 10/01/24 Range/Units 12:18 WBC 12.2 H (4.8-10.8) X10*3/uL RBC 4.95 (4.60-5.80) X10*6/uL Hgb 14.3 (14.0-18.0) g/dl Hct 41.1 L (42.0-52.0) % MCV 83.0 (80.0-98.0) fL MCH 28.9 (27.0-33.0) pg MCHC 34.8 (31.0-36.0) g/dl RDW 12.9 (11.0-16.0) % Plt Count 218 (160-400) X10*3/uL MPV 9.4 (9.4-12.4) fL Immature Gran % (Auto) 0.7 H (0.0-0.4) % Neut % (Auto) 76.6 H (45-73) % Lymph % (Auto) 16.8 L (20-40) % Monroe % (Auto) 5.3 (2-11) % Eos % (Auto) 0.5 (0-4) % Baso % (Auto) 0.1 (0-2) % Lymph # (Auto) 2.0 (1.2-4.9) X10*3/uL Monroe # (Auto) 0.6 (0.1-1.2) X10*3/uL Eos # (Auto) 0.1 (0.0-0.4) X10*3/uL Baso # (Auto) 0.0 (0.0-0.2) X10*3/uL Abs Immat Gran (auto) 0.08 H (0.00-0.03) X10*3/uL Absolute Neuts (auto) 9.3 H (2.0-8.3) x10*3/uL Absolute Nucleated RBC 0.000 (0.0-0.012) X10*3/uL Nucleated RBC % (auto) 0.0 (0.0-0.2) /100WBC ESR 38 H (0-15) MM/HR Sodium 139 (135-145) mmol/L Potassium 4.2 (3.3-5.1) mmol/L Chloride 105 (96-108) mmol/L Carbon Dioxide 24 (22-29) mmol/L Anion Gap 14 (12-20) BUN 13 (9-16) mg/dL Creatinine 0.83 (0.5-1.4) mg/dL Estim Creat Clear Calc 89.8 Estimated GFR > 60 Random Glucose 264 H (60-115) mg/dL Calcium 9.1 (8.4-10.2) mg/dL Magnesium 1.9 (1.6-2.6) mg/dL Total Bilirubin 0.7 (0.0-1.0) mg/dL AST 13 (5-37) U/L ALT 10 (0-40) U/L Alkaline Phosphatase 81 (39-117) U/L C-Reactive Protein 21.28 H (< or = 0.50) mg/dL Total Protein 6.3 L (6.5-8.0) g/dL Albumin 3.6 (3.5-5.0) g/dL Discharge Plan Discharge Clinical Impression: Cellulitis, Eczema Patient Disposition: Home, Self-Care Instructions: Cellulitis (ED), Dermatitis (ED) Additional Instructions: The rash is consistent with a contact dermatitis. See home care instructions. Use the steroid taper as directed. You should be using [id number] Aveeno products, soap and lotion, to help soothe the rash and the itchiness. I am also treating you for suspect cellulitis of the feet. Use the cephalexin as directed. You should follow up with your primary care provider within the week for a recheck of the rash to be sure it is resolving. Prescriptions: New cephalexin 500 mg capsule 500 mg PO BID Qty: 13 0RF methylprednisolone [Medrol (Denis)] 4 mg tablets,dose pack 4 mg PO QAM Qty: 21 0RF Rx Instructions: Take per package instructions. No Action Trulicity 3 mg/0.5 mL pen injector 3 mg subcut QWEEK Qty: 6 2RF sildenafil 100 mg tablet 100 mg PO .PRN PRN (Reason: sexual activity) 30 Days Qty: 30 1RF Rx Instructions: administer 60 minutes before intended activity tadalafil 10 mg tablet 10 mg PO DAILY 30 Days Qty: 30 5RF acetaminophen 325 mg Tablet 650 mg PO Q4H PRN (Reason: Pain) lisinopril-hydrochlorothiazide 20-12.5 mg Tablet 1 tab PO DAILY amlodipine 5 mg Tablet 5 mg PO DAILY nitroglycerin 0.4 mg tablet, sublingual 1 tab sublingual NEEDED PRN (Reason: Angina) metoprolol succinate 50 mg tablet extended release 24 hr 1 tab PO DAILY omega-3 acid ethyl esters 1 gram capsule 2 cap PO BID clopidogrel [Plavix] 75 mg tablet 75 mg PO DAILY aspirin [Adult Low Dose Aspirin] 81 mg tablet,delayed release (DR/EC) 81 mg PO DAILY rosuvastatin 40 mg tablet 40 mg PO DAILY cholecalciferol (vitamin D3) 50 mcg (2,000 unit) tablet 50 mcg PO DAILY Ozempic 0.25 mg or 0.5 mg (2 mg/3 mL) pen injector 0.5 mg subcut QWEEK (DME) lancets [TRUEplus Lancets] 33 gauge misc See Rx Instructions .ROUTE TID Qty: 100 Rx Instructions: As directed alcohol swabs [Alcohol Prep Pads] Pads, Medicated 0 pad topical TID (DME) FreeStyle Lite Strips Strip See Rx Instructions .ROUTE TID Qty: 10 Rx Instructions: As directed Interventions: ED Discharge Assessment Last Done: 10/01/24 20:18 Discharge Date/Time: 10/01/24 20:18 Print Language: Frisian
[2024-10-01 12:25] LABS: MANUAL DIFF FLAG NO
[2024-10-01 12:26] LABS: Basophils Percent Auto 0.1 % (0-2); Eosinophils Absolute Auto 0.1 X10*3/uL (0.0-0.4); Eosinophils Percent Auto 0.5 % (0-4); Hematocrit 41.1 % (42.0-52.0); Hemoglobin 14.3 g/dl (14.0-18.0); Imm Gran Abs Auto 0.08 X10*3/uL (0.00-0.03); Imm Gran Pct Auto 0.7 % (0.0-0.4); Lymphocytes Percent Auto 16.8 % (20-40); Mean Corpuscular HGB Conc 34.8 g/dl (31.0-36.0); Mean Corpuscular Hemoglobin 28.9 pg (27.0-33.0); Mean Platelet Volume 9.4 fL (9.4-12.4); Monocytes Absolute Auto 0.6 X10*3/uL (0.1-1.2); Monocytes Percent Auto 5.3 % (2-11); Neutrophils Absolute Auto 9.3 x10*3/uL (2.0-8.3); Neutrophils Percent Auto 76.6 % (45-73); Platelet Count 218 X10*3/uL (160-400); Red Blood Count 4.95 X10*6/uL (4.60-5.80); Red Cell Distribution Width 12.9 % (11.0-16.0); White Blood Count 12.2 X10*3/uL (4.8-10.8)
[2024-10-01 12:51] LABS: Alanine Aminotransferase 10 U/L (0-40); Albumin Level 3.6 g/dL (3.5-5.0); Alkaline Phosphatase 81 U/L (39-117); Anion Gap 14 (12-20); Aspartate Amino Transferase 13 U/L (5-37); Bilirubin Total 0.7 mg/dL (0.0-1.0); Blood Urea Nitrogen 13 mg/dL (9-16); C Reactive Protein 21.28 mg/dL (< or = 0.50); Calcium 9.1 mg/dL (8.4-10.2); Carbon Dioxide 24 mmol/L (22-29); Chloride 105 mmol/L (96-108); Creatinine Clr Calc Pharmacy 89.8; Estimated Glomerular Filt Rate > 60; Glucose Random 264 mg/dL (60-115); Magnesium 1.9 mg/dL (1.6-2.6); Potassium 4.2 mmol/L (3.3-5.1); Sodium 139 mmol/L (135-145); Total Protein 6.3 g/dL (6.5-8.0)
[2024-10-01 13:04] LABS: Erythrocyte Sedimentation Rate 38 MM/HR (0-15)
--- NOTE | 2024-10-01 19:12 | PC.NURSE ---
Pt reeval by [facility] provider for diffuse rash, cleared for dc home with scripts. Staff medical office secretary utilized for reassessment. Pt and family agreeable to plan of care.
[2024-10-01 19:15] VITALS: BP 128/69; PULSE 88; RESP 18; TEMP 36.2; O2SAT 98
[2024-10-01] MEDS: cephALEXin 500 MG CAPSULE PO (19:45)
[2024-10-01] MEDS: methylPREDNISolone 4 MG TABLET 8 MG PO (20:15)
[2024-10-01 20:18] VITALS: BP 128/69; PULSE 88; RESP 18; TEMP 36.2; O2SAT 98
== END 2024-10-01 20:18 | disposition home or self-care (01) ==
PROVIDERS: Physician Assistant Medical; Emergency Provider Emergency Medicine Emergency Medical Services; PCP Family Medicine
DX: L50.0 Allergic urticaria (principal); I25.10 Atherosclerotic heart disease of native coronary artery without angina pectoris; E11.9 Type 2 diabetes mellitus without complications; F17.210 Nicotine dependence, cigarettes, uncomplicated; I10 Essential (primary) hypertension; Z79.899 Other long term (current) drug therapy; Z79.85 Long-term (current) use of injectable non-insulin antidiabetic drugs
CPT/HCPCS: 36415; 80053; 83735; 85025; 85652; 86140; 99283; 99284

== ENCOUNTER 2024-10-31 13:22 | Outpatient (AMB) | payer MEDICAID, SELFPAY ==
--- NOTE | 2024-10-31 13:25 | A.OFFVIS_ITS ---
Intake Visit Reasons: 6m/PSA/Testo Intake Note: Patient is present for 6M/PSA/TESTO Urology Medication:TADALAFIL,SILDENAFIL Antibiotic Allergy:EMPAGLIFLOZIN Blood Thinner:ASPIRIN Medical Logistics Specialist Required: No Allergies empagliflozin [From Jardiance] Adverse Reaction (Intermediate, Verified 10/31/24 13:26) Rash HPI Comments Details: Jesus is a pleasant male. He is a patient of . Seen for following urologic conditions - phimosis - erectile dysfunction - hypogonadism Dominican translation provided in office by qualified medical insurance coding specialist Six-month follow-up Low testosterone in setting of diabetes Trial testosterone gel Is on GLP 1 Remains on 10 mg daily tadalafil Hypogonadism Low, low normal on multiple occasions Phimosis Ongoing Narrowing ring on foreskin Background diabetes Circumcision performed 01/29 Erectile dysfunction with borderline low testosterone Progressive Unable to obtain and maintain erection Current therapy 10 mg daily tadalafil Concurrent diagnosis diabetes with high-intensity lipid management, multi agent diabetic management 11/30 T 323, 12/01 253, 08/04 T 340 P 0.56 PFSH Medical History CAD (coronary artery disease) On anticoagulant therapy H/O myocardial infarction, greater than 8 weeks (~05/2019) HTN (hypertension) Elevated cholesterol Diabetes type 2, uncontrolled 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 Sleep apnea Nicotine dependence, cigarettes, uncomplicated Enlarged prostate Tubular adenoma Obesity due to excess calories Proteinuria COVID-19 vaccine series completed Surgical History History of heart artery stent History of laparoscopic cholecystectomy History of incisional hernia repair History of circumcision History of colonoscopy Family History Mother Diabetes Father HTN (hypertension) Diabetes Maternal Grandmother Diabetes Maternal Grandfather Diabetes Family/Other Diabetes Family/Other Acute renal failure on dialysis Social History Household Members: Spouse, Family, Children and Other Are you a primary patient centered care specialist to a significant other at home: No Do you presently have visiting nurse or other home services: No Alcohol intake: current Alcohol intake frequency: holidays/special occasions only Patient Tobacco Use Status: Current everyday Tobacco user Tobacco use type: Cigarette Cigarettes Per Day: 10 Years Smoked: (onset 19yo, 1/2-1ppd x 44yrs, 30+PYH) Review of Systems Const Denies chills and Denies fever(s) Card Reports no additional complaints and Denies syncope Resp Denies cough GI Denies abdominal pain and Denies heartburn Reports as per HPI and Denies change in libido Neuro Denies syncope Psych Denies change in libido Endo Denies change in libido Physical Exam Const General: cooperative, healthy appearing, comfortable and no acute distress Orientation/consciousness: patient oriented x3 HEENT Face and sinus: Yes normal facial exam Mouth: moist mucous membranes Neck Neck: Yes normal visual inspection, Yes full ROM and Yes trachea midline Chest Chest palpation & inspection: normal inspection of the chest Resp Effort & Inspection: normal respiratory effort, able to speak in complete sentences and no respiratory distress GI Inspection: Yes normal to inspection Back/Spine/Pelvis Cervical Spine: normal cervical lordosis Thoracic/Lumbar Spine: thoracic and lumbar spine normal to inspection Skin General skin exam: no rashes or lesions noted Neuro General: patient oriented x3, gait normal, tone normal and moves all extremities Extrem General: Yes normal to inspection and Yes capillary refill normal Assessment & Plan Assessment & Plan (1) Enlarged prostate: Comment: (5.5 x 4.2cm on 10/09/[address]) Code(s): N40.0 - Benign prostatic hyperplasia without lower urinary tract symptoms Category: Medical (2) Erectile dysfunction associated with type 2 diabetes mellitus: Code(s): E11.69 - Type 2 diabetes mellitus with other specified complication; N52.1 - Erectile dysfunction due to diseases classified elsewhere Category: Medical (3) Hypogonadism in male: Code(s): E29.1 - Testicular hypofunction Category: Medical Plan Three-month follow-up check labs tele Orders: Orders Testosterone, Free/Total 3 Months E29.1 - Testicular hypofunction Medications: New testosterone 1 packet transdermal DAILY 30 days 150 grams 5RF E29.1 - Testicular hypofunction Patient Instructions: This note is constructed using voice recognition software. While every effort has been made to ensure accuracy shoe caser errors may have been included. Imaging studies, laboratory and physical exam results were discussed and reviewed in detail. No major barriers to patient understanding were identified. An opportunity to ask questions regarding the treatment plan was provided. All questions were answered. The patient expressed understanding and agreement with the above treatment plan. The patient is aware they should contact our office by phone for worsening of their current condition or the appearance of new urologic symptoms. Compliance is encouraged with any medications and followup testing that is ordered. It is a privilege to participate in the urologic care of your patient. If you have any questions or concerns regarding treatment for the above conditions, or other urologic issues, please do not hesitate to contact me. The office telephone contact is [phone]. Sincerely, Dr Kaiden Hernández MD, [facility] - Urology Compassionate Specialist Care for the Genitourinary System Coding Level of Care Code Est Pt Level 4 (85846) Complex EM visit Add On G2211 Diagnoses Enlarged prostate N40.0 Erectile dysfunction associated with type 2 diabetes mellitus E11.69; N52.1 Hypogonadism in male E29.1
--- OUTSIDE RECORDS SUMMARY | 2024-10-31 15:45 | XMS_ITS | Encounter Summary ---
Author Organization [employer] Address [address] [facility] 7t [place] [address] Care Team Providers Care Quality Assurance Assistant Name Role Phone Aruna Mcneill MD Primary Care Provider [phone] Kwasi Galeano PharmD Unavailable [phone] Reason for Visit * Consultation (Routine) - Authorized Specialty Diagnoses / Procedures Referred By Contac t Referred To Contact Pharmacy Diagnoses Essential hypertension Yara Mahan MD [address] [place] [phone] Phone: tel: fax: Referral ID Status Reason Start Date Expiration Date Visits Requested Visits Authorized [id number] Authorized Continuity of Care 10/18/2024 10/18/2025 6 6 Encounter Details Date Type Department Care Team (Latest Contact Info) Description 10/26/2024 9:00 AM EDT Clinical Support [facility] [address] [place] [phone] Shannan Escobar, PharmD [address] [place] [address] Essential hypertension (Primary Dx); Tobacco dependence; Vitamin D deficiency; Migraine without aura, not refractory; Type 2 diabetes mellitus with hyperglycemia, without long-term current use of insulin ([facility]); Hyperlipidemia, unspecified hyperlipidemia type; Myocardial infarction, unspecified NC type, unspecified artery ([facility]) Social History Tobacco Use Types Packs/Day Years Used Date Smoking Tobacco: Every Day Cigarettes 0.6 35 Passive Smoke Exposure: Current Smokeless Tobacco: Never Alcohol Use Standard Drinks/Week Comments Not Currently 0 (1 standard drink = 0.6 oz pur e alcohol) Depression Answer Date Recorded Patient Health Questionnaire-9 Score 17 08/07/2024 Patient Health Questionnaire-9 Score 17 08/07/2024 Last PHQ-9: Questionnaire Data Not on file 0 08/07/2024 Housing Stability Answer Date Recorded What is your housing situation today? I have moises kaur 10/25/[address] you li ve. Do you have problems with any of the following? None of the above 10/25/2024 Food Insecurity Answer Date Recorded Within the past 12 months, y ou worried that your food would run out before you got money to buy more: Never True 10/25/2024 Within the past 12 months,th e food you bought just didn't last and you didn't have enough money to get more: Never True Transportation Answer Date Recorded In the past 12 months, has l ack of transportation kept you from medical appts, meetings, work or from getting things needed for daily living? No 10/25/2024 Utilities Answer Date Recorded In the past 12 months, has t he electric, gas, oil or water company threatened to shut off services in your home? No 10/25/2024 Depression Answer Date Recorded Patient Health Questionnaire-2 Score 5 08/07/2024 Internet Access Answer Date Recorded Internet Access Q1 Yes 10/25/2024 Internet Access Q2 Not on file 10/25/2024 Sex and Gender Information Value Date Recorded Sex Assigned at Male 05/10/2022 10:33 AM EDT Legal Sex Male 10:33 AM EDT Gender Identity Male 05/10/2022 10:33 AM EDT Sexual Orientation Straight 05/10/2022 10 :33 AM EDT documented as of this encounter Last Filed Vital Signs Vital Sign Reading Time Taken Comments Blood Pressure 132/88 10/26/2024 9:26 AM EDT pat ient reported Pulse 97 10/26/2024 9:26 AM EDT patie nt reported Temperature - - Respiratory Rate - - Oxygen Saturation - - Inhaled Oxygen Concentration - - Weight - - Height - - Body Mass Index - - documented in this encounter Progress Notes * Shannan Escobar PharmCharla - 10/26/2024 9:00 AM EDT Pharmacy Consult Visit Type: MTM Visit Pharmacist: Shannan Escobar PharmD Referral Diagnosis: I10 (ICD-10-CM) - Essential hypertension Referral Expiration: 10/18/2025 Referring Provider: Yara Mahan MD Pharmacy Recommendations for Provider: Since patient receives monthly medboxes, please contact medbox pharmacist with any medication changes (initiations, discontinuation, dose adjustments) Please consider reducing cholecalciferol to 1000 IU daily (levels WNL as of 07/2024) due to migraine-related nonadherance. Please recheck levels in 3 months to assure vitamin D levels remain WNL If migraines persist, may consider increasing magnesium oxide to 600 mg once daily Please consider titrating Ozempic to 2 mg subcutaneously weekly starting 11/02/2024 (4 weeks after initiating Ozempic 1 mg), patient denies MATTIE and reports elevated fasting blood sugars Per 2024 ADA standards of care, target fasting glucose is 80-130 mg/dL; patient is consistently above this range Please consider discontinuing Lovaza due to patient reporting frequent missed doses from abdominal discomfort and current subtherapeutic dosing. Patient's triglycerides were WNL as of 08/08/2024. Reassess FLP in 4 to 12 weeks post- discontinuation to ensure triglycerides remain controlled Background/ Visit Intake Jesus Mora is a 63 y.o. patient here for a follow-up visit. Visit completed over the phone. Allergies: is allergic to metformin and empagliflozin. Preferred Pharmacy: [facility] - [address] [phone] Medbox: Yes, last medbox on 09/21/2024 . Assessment & Plan Adherence: History: Medication Reconciliation: Denies use of the following medications that are active in [facility] medlist: Ciclopirox: denies use Magnesium capsule: taking the tablets per [facility] pharmacy (also active in [employer] medlist, in medbox) Reports taking the following medications differently than prescribed: Cholecalciferol: Occassionally removes from medbox due to headache (see migraine section) Lovaza: skips ~ 3x/week due to GI upset (see ASCVD/Hyperlipidemia section) OTC medication, vitamin, supplement use: denies Adherence: Medication Organization: Uses medboxes from [facility] pharmacy Missed doses: Reports missing 1 doses/week when running late for an appointment Read/Write: Yes, in Cypriot Reports satisfaction with [facility] medbox program Goals of therapy: Improve adherence & minimize missed doses (<2 missed doses/week) Recommendations/Monitoring: Since patient receives monthly medboxes, please contact medbox pharmacist with any medication changes (initiations, discontinuation, dose adjustments) Recommended patient to keep medications on the kitchen table to increase adherence using visual aid Recommended tearing medication slot and bringing to appointments when late rather than skipping dose. Patient verbalized understanding Pharmacy updated medlist in [facility] to match patients current medication use (removed ciclopirox and magnesium capsules) Migraines Pharmacologic therapy: Magnesium oxide 400 mg by mouth once daily History Reports taking many morning medications, when migraines are more frequent. Reports occasionally skipping cholecalciferol, attributing to migraines Patient reports at times skipping cholecalciferol, reporting that it causes migraines Plan Please consider reducing cholecalciferol to 1000 IU daily (levels WNL as of 07/2024) due to migraine-related nonadherance. Please recheck levels in 3 months to assure vitamin D levels remain WNL If migraines persist, may consider increasing magnesium oxide to 600 mg once daily Pharmacy recommended moving some medications to noon to reduce morning medication burden and potential migraine triggers Patient reports openness to taking metoprolol succinate in the evening; prefers no other medicationchanges at this time. Medbox updated Diabetes Pharmacologic Therapy: Ozempic 1 mg subcutaneously once weekly (Tuesdays) Farxiga 10 mg by mouth once daily History: Previous treatments include: Metformin: discontinued due to abdominal discomfort Jardiance: discontinued due to rash Ozempic increased to 1 mg weekly on 08/07/2024; per 10/08/2024 CDTM note, patient started 1 mg penson 10/02/2024. Patient confirmed start date Patient denies MATTIE and reports openness to increasing dose SMBG: Patient reports testing 1 to 2 times per day. Patient utilizes [employer] for SMBG system. No SMBG: Patient did not have glucometer or log readily available at time of the visit. Reports fasting BS readings of 168 mg/dL, 149 mg/dL, and 182 mg/dL this week Reports exercising by walking. Reports barriers to exercise of knee pain. Lab monitoring: Lab Results Component Value Date K 4.2 10/01/2024 NA 139 10/01/2024 VITB12 181 (L) 08/08/2024 MICROALBCREU 50.9 (H) 08/08/2024 CREATININE 0.83 10/01/2024 EGFR >60 10/01/2024 HGBA1C 10.0 (A) 08/07/2024 HGBA1C 9.3 (A) 01/19/2024 HGBA1C 10.4 (A) 10/31/2023 Additional recommendations per ADA: On ACEI/ARB: Yes On Aspirin: Yes On Statin: Yes (high intensity) Dental exam in the past 6 months: unknown, plan to reassess at 1 month follow up Eye Exam in the past 12 months: Yes (12/07/2023- no diabetic retinopathy) Goals of therapy: Per the ADA Standards of Medical Care in Diabetes - 2023 Achieve A1c of <7% while also minimizing episodes of hypoBG (<70 mg/dL) Plan: Please consider titrating Ozempic to 2 mg subcutaneously weekly starting 11/02/2024 (4 weeks after initiating Ozempic 1 mg), patient denies MATTIE and reports elevated fasting blood sugars Per 2024 ADA standards of care, target fasting glucose is 80-130 mg/dL; patient is consistently above this range Education: Discussed role of A1c monitoring, A1c and SMBG goals ASCVD (history of NC) and hyperlipidemia Pharmacologic Therapy: Aspirin 81 mg by mouth once daily Rosuvastatin 40 mg by mouth once daily Lovaza 1 g by mouth twice daily History: Patient reports skipping Lovaza ~ 3x/week due to stomach pain Abdominal pain reported in 3-5% of patients in clinical trials ([facility]) Current dose (1 g twice daily) is subtherapeutic; recommended dose is 2 g twice daily per package insert Pharmacy offered to discuss adding ezetimibe 10 mg daily with PCP. However, patient declined due tomedication-induced migraines 2024 ADA standards of care recommend a LDL-C threshold of 55 mg/dL in patients with T2DM and ASCVD Lab monitoring: Lab Results Component Value Date CHOL 214 (H) 08/08/2024 LDLCHOLCAL 140 (H) 08/08/2024 HDL 45 08/08/2024 TRIG 146 08/08/2024 AST 13 10/01/2024 ALT 10 10/01/2024 ALKPHOS 133 09/08/2022 The ASCVD Risk score ([place] SABILLON, et al., 2019) failed to calculate for the following reasons: Risk score cannot be calculated because patient has a medical history suggesting prior/existing ASCVD Goals of Therapy: ACC/AHA 2018 Cholesterol Guidelines: Ensure evidence based and safe use of medications for secondary prevention of ASCVD. Plan: Please consider discontinuing Lovaza due to patient reporting frequent missed doses from abdominal discomfort and current subtherapeutic dosing. Patient's triglycerides were WNL as of 08/08/2024. Reassess FLP in 4 to 12 weeks post- discontinuation to ensure triglycerides remain controlled Patient is agreeable to increase triglyceride-lowering foods in their diet Education Pharmacy educated patient on positive dietary changes to reduce triglycerides Tobacco Dependence (Stage: Preparation) Pharmacologic Therapy: none History: Smoking History Reports smoking 1/2 ppd. Reports starting at 21 years old First cigarette within 30 minutes of waking after drinking coffee in the morning Endorses awaking at night to smoke. Endorses triggers such as habit when eating or drinks coffee Patient reports interest in starting the nicotine patch and gum Past Quit Attempts Endorses previous quit attempts, and that they are in a cycle where they stop for a few years than restart Tried to quit previously Goals of Therapy: Per the [place] [facility] Treating Tobacco Use and Dependence Clinical Practice Guideline,assist the patient to achieve smoking cessation via assessment of desire to quit and administrationof smoking cessation aids as indicated. Plan: The following prescriptions were queued to provider: Nicotine 21 mg patch, apply 1 patch daily as directed x6 wks (starting dose) Nicotine 14 mg patch, apply 1 patch daily as directed x2 wks (step down dose) Nicotine 7 mg patch, apply 1 patch daily as directed x2 wks (step down dose) Nicotine 4 mg gum/lozenge use 1 as directed every 1-2 hours PRN cravings (combo therapy) annual screening with LDCT referral was sent 07/13/2024 per USPSTF recommendation given the patient is between 50-80 years old, has 20 pack-year smoking history and currently smokes. Education: Use of nicotine patch (can remove prior to bed in case of sleep disturbance, rotate site, remove prior to MRI) Use of nicotine gum/lozenge (chew/dissolve over 20-30 mins, avoid food/drink for 15 mins prior). Hypertension and ischemic heart disease: Pharmacologic Therapy: Lisinopril hydrochlorothiazide 20-12.5 mg: take 2 tablets by mouth once daily in the morning Metoprolol succinate ER 50 mg by mouth once daily History: Patient reports checking their BP almost every day. Confirms logging results Pertinent negatives include chest pain, head ache, blurry vision. Patient checked their BP during today's visit Date Blood pressure (mmHg) Heart rate (bpm) 10/26/24 132/88 mmHg 97 BPM Recent Blood Pressure values: BP Readings from Last 4 Encounters: 10/26/24 132/88 10/08/24 135/84 10/08/24 130/70 08/20/24 (!) 142/80 Pulse Readings from Last 4 Encounters: 10/26/24 97 10/08/24 84 10/08/24 107 08/20/24 84 Lab monitoring Lab Results Component Value Date NA 139 10/01/2024 K 4.2 10/01/2024 CREATININE 0.83 10/01/2024 EGFR >60 10/01/2024 Goals of Therapy per JNC 8: Achieve & maintain BP <140/90mmHg Plan: Plan to continue current hypertension regimen. Patient's self-measured BP during today's telehealthwas WNL Education: Counseling provided to SMBP & log results for review in follow up. Immunizations History: Immunization History Administered Date(s) Administered HepB-CpG 01/19/2024, 09/06/2024 Influenza Injectable Quadrivalant Preservative Free IIV4 MDCK 05/28/2019, 04/22/2020, 04/27/2022 Influenza injectable quadrivalent IIV4 with preservative 08/30/2017, 05/10/2018 Influenza injectable quadrivalent preservative free 04/29/2021, 09/19/2023 Influenza, seasonal, injectable, preservative free 08/07/2024 Moderna Covid-19 Vaccine 12+ 09/17/2020, 10/15/2020, 11/23/2021 Moderna Covid-19 Vaccine 6+ Bivalent 07/28/2022 Pfizer Covid-19 Vaccine 12+ 05/19/2021, 09/19/2023, 08/07/2024 Pneumococcal Conjugate PCV 20 04/27/2022 Pneumococcal Polysaccharide PPSV23 08/30/2017 RSV Bivalent 11/25/2023 Tdap 01/22/2020 Zoster, Recombinant 05/28/2019, 01/22/2020 Goals of therapy: Ensure patient is up to date per the CDC Adult Immunization Schedule. Assessment/Plan: Hepatitis A series (Requests vaccination): Due Plan: Unable to assess due to time constraints, plan to revisit at 1 month follow up Patient Action Plan Reviewed today with plan to revisit at follow up in 1 month: tobacco cessation follow up Continue to adhere to medication Monitor blood sugar and blood pressure as directed Start tobacco cessation Receive all recommended vaccinations Attend follow up appointments documented in this encounter Plan of Treatment Upcoming Encounters Date Type Department Care Team (Late st Contact Info) Description 11/06/2024 10:00 AM EDT Office Visit [facility] [address] [place] [phone] Aruna Mcneill MD [address] [place] [address] 11/30/2024 9:30 AM EDT Telemedicine [facility] [place] [address] 12/17/2024 9:30 AM EDT Medication Management [facility] [place] [address] Kwasi Galeano PharmD [address] [place] [address] Scheduled Referrals Name Type Priority Associated Diagnoses Orde r Schedule Referral to Pharmacy [facility] Outpatient Referral Routine Essential hypertension Ordered: 10/18/2024 documented as of this encounter Goals Goal Patient Goal Type Associated Problems Recent Progress Patient-Stated? Author Blood Pressure < 140/90 Blood Pressure 132/88(2024 9:26 AM EDT) No Kwasi Galeano PharmD Hemoglobin A1c < 7 Result Component 10(08/07/2024 9:36 AM EST) No Kwasi Galeano PharmD documented as of this encounter Visit Diagnoses Diagnosis Essential hypertension- Primary Unspecified essential hypertension Tobacco dependence Tobacco use disorder Vitamin D deficiency Migraine without aura, not refractory Type 2 diabetes mellitus with hyperglycemia, without long-term current use of insulin ([facility]) Hyperlipidemia, unspecified hyperlipidemia type Myocardial infarction, unspecified NC type, unspecified artery ([facility]) documented in this encounter Additional Health Concerns Assessment Noted Time PHQ-9 Depression Total Score: 17 025 1:01 PM EST documented as of this encounter Care Teams Quality Assurance Assistant Relationship Specialty Start Date End Date Aruna Mcneill MD [address] [place] [phone] PCP - General Family Medicine 09/01/23 Kwasi Galeano PharmD [address] [place] [address] Pharmacist Internal Medicine 11/25/23 documented as of this encounter
--- OUTSIDE RECORDS SUMMARY | 2024-10-31 15:46 | XMS_ITS | Encounter Summary ---
Author Organization [employer] Address [address] [place] [address] Care Team Providers Care Headlight Assembler Name Role Phone Aruna Mcneill MD Primary Care Provider [phone] Kwasi Galeano PharmD Unavailable [phone] Reason for Referral * Consultation (Routine) - Authorized Specialty Diagnoses / Procedures Referred By Contac t Referred To Contact Pharmacy Diagnoses Essential hypertension Yara Mahan MD [address] [place] [phone] Phone: tel: fax: Referral ID Status Reason Start Date Expiration Date Visits Requested Visits Authorized [id number] Authorized Continuity of Care 10/18/2024 10/18/2025 6 6 Encounter Details Date Type Department Care Team (Late st Contact Info) Description 10/18/2024 Orders Only [facility] [address] [place] [phone] Yara Mahan MD [address] [place] [address] [phone] Essential hypertension (Primary Dx) Social History Tobacco Use Types Packs/Day Years [...] housing situation today? I have moises kaur 10/20/[address] you li ve. Do you have problems with any of the following? Pests such as bugs, ants, or mice 10/20/2023 Food Insecurity Answer Date Recorded Within the past 12 months, y ou worried that your food would run out before you got money to buy more: Never True 10/20/2023 Within the past 12 months,th e food you bought just didn't last and you didn't have enough money to get more: Never True 05/2024 Transportation Answer Date Recorded In the past 12 months, has l ack of transportation kept you from medical appts, meetings, work or from getting things needed for daily living? No 10/20/2023 Utilities Answer Date Recorded In the past 12 months, has t he electric, gas, oil or water company threatened to shut off services in your home? No 10/20/2023 Depression Answer Date Recorded Patient Health Questionnaire-2 Score 5 08/07/2024 Sex and Gender Information Value Date Recorded Sex Assigned at Male 05/10/2022 10:33 AM EDT Legal Sex Male 10:33 AM EDT Gender Identity Male 05/10/2022 10:33 AM EDT Sexual Orientation Straight 05/10/2022 10 :33 AM EDT documented as of this encounter Plan of Treatment Upcoming Encounters Date Type Department Care Team (Late st Contact Info) Description 11/06/2024 10:00 AM EDT Office Visit [address] [phone] Aruna Mcneill MD [address] [place] [phone] 11/30/2024 9:30 AM EDT Telemedicine [address] [address] 12/17/2024 9:30 AM EDT Medication Management [address] [address] Kwasi Galeano, PharmD [address] [place] [address] Scheduled Referrals Name Type Priority Associated Diagnoses Orde r Schedule Referral to Pharmacy MTM Outpatient Referral Routine Essential hypertension Ordered: 10/18/2024 documented as of this encounter Goals Goal Patient Goal Type Associated Problems Recent Progress Patient-Stated? Author Blood Pressure < 140/90 Blood Pressure 132/88(2024 9:26 AM EDT) No Kwasi Galeano, Tung Hemoglobin A1c < 7 Result Component 10(08/07/2024 9:36 AM EST) No Kwasi Galeano PharmD documented as of this encounter Visit Diagnoses Diagnosis Essential hypertension- Primary Unspecified essential hypertension documented in this encounter Additional Health Concerns Assessment Noted Time PHQ-9 Depression Total Score: 17 025 1:01 PM EST documented as of this encounter Care Teams Headlight Assembler Relationship Specialty Start Date End Date Aruna Mcneill MD [address] [place] [address] PCP - General Family Medicine 09/01/23 Kwasi Galeano, Tung [address] [place] [address] Pharmacist Internal Medicine 11/25/23 documented as of this encounter
--- OUTSIDE RECORDS SUMMARY | 2024-10-31 15:46 | XMS_ITS | Encounter Summary ---
Author Organization [email or web address] Address [address] [facility] [address] [place] [address] Care Team Providers Care Patient Service Coordinator Name Role Phone Aruna Mcneill MD Primary Care Provider [phone] Kwasi Galeano PharmD Unavailable [phone] Encounter Details Date Type Department Care Team ([facility] st Contact Info) Description 10/26/2024 Orders Only [facility] [address] [place] [address] Yara Mahan MD [address] [place] [address] Low vitamin D level (Primary Dx); Type 2 diabetes mellitus with hyperglycemia, without long-term current use of insulin ([facility]) Social History Tobacco Use Types Packs/Day [...] Description 11/06/2024 10:00 AM EDT Office Visit [facility] [address] [place] [address] Aruna Mcneill MD [address] [place] [phone] 11/30/2024 9:30 AM EDT Telemedicine [address] [address] 12/17/2024 9:30 AM EDT Medication Management [facility] [address] [place] [phone] Kwasi Galeano PharmD [address] [place] [phone] documented as of this encounter Goals Goal Patient Goal Type Associated Problems Recent Progress Patient-Stated? Author Blood Pressure < 140/90 Blood Pressure 132/88(2024 9:26 AM EDT) No Kwasi Galeano, PharmCharla Hemoglobin A1c < 7 Result Component 10(08/07/2024 9:36 AM EST) No Galeano, Kwasi, PharmD documented as of this encounter Visit Diagnoses Diagnosis Low vitamin D level- Primary Type 2 diabetes mellitus with hyperglycemia, without long-term current use of insulin ([facility]) documented in this encounter Additional Health Concerns Assessment Noted Time PHQ-9 Depression Total Score: 17 025 1:01 PM EST documented as of this encounter Care Teams Patient Service Coordinator Relationship Specialty Start Date End Date Aruna Mcneill MD [address] [place] [address] PCP - General Family Medicine 09/01/23 Kwasi Galeano, PharmD [address] [place] [address] Pharmacist Internal Medicine 11/25/23 documented as of this encounter
--- OUTSIDE RECORDS SUMMARY | 2024-10-31 15:46 | XMS_ITS | Encounter Summary ---
Author Organization [employer] [facility] Address [address] [facility] [address] [facility] [address] [facility] [address] 7t [place] [address] Care Team Providers Care Milk Powder Grinder Name Role Phone Aruna Mcneill MD Primary Care Provider [phone] Kwasi Galeano PharmD Unavailable [phone] Reason for Referral * Consultation (Routine) - Authorized Specialty Diagnoses / Procedures Referred By Contac t Referred To Contact Pharmacy Diagnoses Essential hypertension Type 2 diabetes mellitus with hyperglycemia, without long-term current use of insulin (CMS/HCC) Aruna Mcneill MD [address] [place] [address] Phone: tel: fax: Referral ID Status Reason Start Date Expiration Date Visits Requested Visits Authorized [id number] Authorized Consult and Treat 10/12/2024 10/12/2025 6 6 Encounter Details Date Type Department Care Team (Late st Contact Info) Description 10/12/2024 Orders Only [facility] [address] [place] [phone] Aruna Mcneill MD [address] [place] [address] [phone] Essential hypertension (Primary Dx); Type 2 diabetes mellitus with hyperglycemia, without long-term current use of insulin (CMS/HCC) Social History Tobacco Use Types Packs/Day Years [...] Description 11/06/2024 10:00 AM EDT Office Visit [facility] [address] [place] [address] Aruna Mcneill MD [address] [place] [address] 11/30/2024 9:30 AM EDT Telemedicine [address] [address] 12/17/2024 9:30 AM EDT Medication Management [facility] [address] [place] [address] Kwasi Galeano PharmD [address] [place] [address] Scheduled Referrals Name Type Priority Associated Diagnoses Orde r Schedule Referral to Pharmacy CD Outpatient Referral Routine Essential hypertension Type 2 diabetes mellitus with hyperglycemia, without long-term current use of insulin ([facility]) Ordered: 10/12/2024 documented as of this encounter Goals Goal Patient Goal Type Associated Problems Recent Progress Patient-Stated? Author Blood Pressure < 140/90 Blood Pressure 132/88(2024 9:26 AM EDT) No Kwasi Galeano PharmD Hemoglobin A1c < 7 Result Component 10(08/07/2024 9:36 AM EST) No Kwasi Galeano PharmD documented as of this encounter Visit Diagnoses Diagnosis Essential hypertension- Primary Unspecified essential hypertension Type 2 diabetes mellitus with hyperglycemia, without long-term current use of insulin ([facility]) documented in this encounter Additional Health Concerns Assessment Noted Time PHQ-9 Depression Total Score: 17 025 1:01 PM EST documented as of this encounter Care Teams Milk Powder Grinder Relationship Specialty Start Date End Date Aruna Mcneill MD [address] [place] [address] PCP - General Family Medicine 09/01/23 Kwasi Galeano PharmD [address] [place] [address] Pharmacist Internal Medicine 11/25/23 documented as of this encounter
--- OUTSIDE RECORDS SUMMARY | 2024-10-31 15:46 | XMS_ITS | Encounter Summary ---
Author Organization [employer] Address [address] [place] [address] Care Team Providers Care Counter Checker Name Role Phone Hellen Phillip Primary Care Provider [phone] Aruna Mcneill MD Primary Care Provider [phone] Kwasi Galeano PharmD Unavailable [phone] Encounter Details Date Type Department Care Team (Late st Contact Info) Description 05/23/2023 Abstract [facility] [address] [place] [address] Hellen Phillip ANP [address] [place], [place] [phone] Social History Tobacco Use Types Packs/Day Years Used Date Smoking Tobacco: Every Day Cigarettes 0.5 35 Passive Smoke Exposure: Current Smokeless Tobacco: Never Alcohol Use Standard Drinks/Week Comments Not Currently 0 (1 standard drink = 0.6 oz pur e alcohol) Depression Answer Date Recorded Patient Health Questionnaire-9 Score 14 09/03/2022 Housing Stability Answer Date Recorded What is your housing situation today? I have moises kaur 04/25/[address] you li ve. Do you have problems with any of the following? None of the above 04/25/2023 Food Insecurity Answer Date Recorded Within the past 12 months, y ou worried that your food would run out before you got money to buy more: Never True 04/25/2023 Within the past 12 months,th e food you bought just didn't last and you didn't have enough money to get more: Never True Transportation Answer Date Recorded In the past 12 months, has l ack of transportation kept you from medical appts, meetings, work or from getting things needed for daily living? No 04/25/2023 Utilities Answer Date Recorded In the past 12 months, has t he electric, gas, oil or water company threatened to shut off services in your home? No 04/25/2023 Depression Answer Date Recorded Patient Health Questionnaire-2 Score 4 09/03/2022 Sex and Gender Information Value Date Recorded Sex Assigned at Male 05/10/2022 10:33 AM EDT Legal Sex Male 10:33 AM EDT Gender Identity Male 05/10/2022 10:33 AM EDT Sexual Orientation Straight 05/10/2022 10 :33 AM EDT documented as of this encounter Plan of Treatment Upcoming Encounters Date Type Department Care Team (Late st Contact Info) Description 11/06/2024 10:00 AM EDT Office Visit [facility] [address] [place] [address] Aruna Mcneill MD [address] [place] [address] 11/30/2024 9:30 AM EDT Telemedicine [address] [address] 12/17/2024 9:30 AM EDT Medication Management [address] [address] Kwasi Galeano, PharmD [address] [place] [address] documented as of this encounter Procedures Procedure Name Priority Date/Time Associated Diagnosis Comments COLONOSCOPY Routine 11/23/2021 documented in this encounter Results * Colonoscopy (11/23/2021) Colonoscopy Normal Normal Narrative Juan Francisco Winklerba - 11/23/2021 Recommended 2 year follow up us Historical Provider HEALTH MAINTENANCE Final Result documented in this encounter Visit Diagnoses Not on filedocumented in this encounter Additional Health Concerns Assessment Noted Time PHQ-9 Depression Total Score: 14 023 10:35 AM EST documented as of this encounter Care Teams Counter Checker Relationship Specialty Start Date End Date Hellen Phillip ANP [address] [place] [address] PCP - General Family Medicine 03/31/23 08/31/23 Aruna Mcneill MD [address] [place] [address] PCP - General Family Medicine 09/01/23 Kwasi Galeano PharmD [address] [place] [address] Pharmacist Internal Medicine 11/25/23 documented as of this encounter
--- OUTSIDE RECORDS SUMMARY | 2024-10-31 15:46 | XMS_ITS | Encounter Summary ---
Author Organization [email or web address] [facility] Address [address] [place] [address] Care Team Providers Care Fire Alarm Operator Name Role Phone Gilbert Ayan MARTINES Primary Care Provider Unavail able Hellen Phillip Primary Care Provider [phone] Aruna Mcneill MD Primary Care Provider [phone] Kwasi Galeano PharmD Unavailable [phone] Encounter Details Date Type Department Care Team ([facility] Contact Info) Description 06/14/2022 Orders Only [facility] [address] [place] [address] Kwasi Galeano, PharmD [address] [place], [place] [phone] Social History Tobacco Use Types Packs/Day Years Used Date Smoking Tobacco: Every Day Cigarettes 0.3 35 Passive Smoke Exposure: Current Smokeless Tobacco: Never Sex and Gender Information Value Date Recorded Sex Assigned at Male 05/10/2022 10:33 AM EDT Legal Sex Male 10:33 AM EDT Gender Identity Male 05/10/2022 10:33 AM EDT Sexual Orientation Straight 05/10/2022 10 :33 AM EDT COVID-19 Exposure Response Date Recorded In the last 10 days, have yo u been in contact with someone who was confirmed or suspected to have Coronavirus/COVID-19? No / Unsure 06/11/2022 10:31 AM EST documented as of this encounter Plan of Treatment Upcoming Encounters Date Type Department Care Team ([facility] Contact Info) Description 11/06/2024 10:00 AM EDT Office Visit [facility] [address] [place] [address] Aruna Mcneill MD [address] [place] [address] 11/30/2024 9:30 AM EDT Telemedicine [address] [address] 12/17/2024 9:30 AM EDT Medication Management [address] [address] Kwasi Galeano, PharmCharla [address] [place] [address] documented as of this encounter Visit Diagnoses Not on filedocumented in this encounter Additional Health Concerns Assessment Noted Time PHQ-9 Depression Total Score: 22 022 11:07 AM EST documented as of this encounter Care Teams Fire Alarm Operator Relationship Specialty Start Date End Date Ayan Gilbert AGNP PCP - General Family Medicine 06/08/22 03/30/23 Hellen Phillip ANP [address] [place] [address] PCP - General Family Medicine 03/31/23 08/31/23 Aruna Mcneill MD [address] [place] [address] PCP - General Family Medicine 09/01/23 Kwasi Galeano, PharmD [address] [place] [address] Pharmacist Internal Medicine 11/25/23 documented as of this encounter
--- OUTSIDE RECORDS SUMMARY | 2024-10-31 15:46 | XMS_ITS | Encounter Summary ---
Author Organization [employer] [facility] Address [address] [place] [address] Care Team Providers Care Ic Designer Standard Cells Name Role Phone Aruna Mcneill MD Primary Care Provider [phone] Kwasi Galeano PharmD Unavailable [phone] Reason for Referral * Consultation (Routine) - Authorized Specialty Diagnoses / Procedures Referred By Contac t Referred To Contact Pharmacy Diagnoses Type 2 diabetes mellitus with hyperglycemia, without long-term current use of insulin (CMS/HCC) Essential hypertension Aruna Mcneill MD [address] [place] [address] Phone: tel: fax: Referral ID Status Reason Start Date Expiration Date Visits Requested Visits Authorized [id number] Authorized Consult and Treat 05/22/2024 05/22/2025 6 6 Encounter Details Date Type Department Care Team (Late st Contact Info) Description 05/22/2024 Orders Only [facility] [address] [place] [address] Aruna Mcneill MD [address] [place] [address] Type 2 diabetes mellitus with hyperglycemia, without long-term current use of insulin (CMS/HCC) (Primary Dx); Essential hypertension Social History Tobacco Use Types Packs/Day Years [...] 11/06/2024 10:00 AM EDT Office Visit [facility] [address] [place] [address] Aurna Mcneill MD [address] [place] [address] 11/30/2024 9:30 AM EDT Telemedicine [address] [address] 12/17/2024 9:30 AM EDT Medication Management [address] [address] Kwasi Galeano, PharmD [address] [place] [address] Scheduled Referrals Name Type Priority Associated Diagnoses Orde r Schedule Referral to Pharmacy CDTM Outpatient Referral Routine Type 2 diabetes mellitus with hyperglycemia, without long-term current use of insulin ([facility]) Essential hypertension Ordered: 05/22/2024 documented as of this encounter Goals Goal Patient Goal Type Associated Problems Recent Progress Patient-Stated? Author Blood Pressure < 140/90 Blood Pressure 132/88(2024 9:26 AM EDT) No Kwasi Galeano PharmD Hemoglobin A1c < 7 Result Component 10(08/07/2024 9:36 AM EST) No Kwasi Galeano PharmD documented as of this encounter Visit Diagnoses Diagnosis Type 2 diabetes mellitus with hyperglycemia, without long-term current use of insulin ([facility])- Primary Essential hypertension Unspecified essential hypertension documented in this encounter Additional Health Concerns Assessment Noted Time PHQ-9 Depression Total Score: 14 023 10:35 AM EST documented as of this encounter Care Teams Ic Designer Standard Cells Relationship Specialty Start Date End Date Aruna Mcneill MD [address] [place] [address] PCP - General Family Medicine 09/01/23 Kwasi Galeano PharmD [address] [place] [address] Pharmacist Internal Medicine 11/25/23 documented as of this encounter
--- OUTSIDE RECORDS SUMMARY | 2024-10-31 15:46 | XMS_ITS | Encounter Summary ---
Author Organization [employer] Address [address] [facility] 7t [place] [address] Care Team Providers Care Modeling Agent Name Role Phone Aruna Mcneill MD Primary Care Provider [phone] Kwasi Galeano PharmD Unavailable [phone] Reason for Visit * Reason Onset Date Comments Med Refill 10/26/2024 Encounter Details Date Type Department Care Team (Late st Contact Info) Description 10/26/2024 Refill [facility] [address] [place] [address] Shannan Escobar PharmD [address] [place], [place] [phone] Social History Tobacco Use Types Packs/Day Years [...] is your housing situation today? I have moisesrichard kaur 10/25/[address] you [...] Description 11/06/2024 10:00 AM EDT Office Visit [facility] [address] [place] [address] Aruna Mcneill MD [address] [place] [address] 11/30/2024 9:30 AM EDT Telemedicine [address] [address] 12/17/2024 9:30 AM EDT Medication Management [address] [address] Kwasi Galeano PharmD [address] [place] [address] documented as of this encounter Goals Goal [...] documented as of this encounter Care Teams Modeling Agent Relationship Specialty Start Date End Date Aruna Mcneill MD [address] [place] [address] PCP - General Family Medicine 09/01/23 Kwasi Galeano, Tung [address] [place] [address] Pharmacist Internal Medicine 11/25/23 documented as of this encounter
--- OUTSIDE RECORDS SUMMARY | 2024-10-31 15:46 | XMS_ITS | Encounter Summary ---
Author Organization [employer] Address [address] [place] [address] Care Team Providers Care Patient Navigator Name Role Phone Ayan Gilbert Primary Care Provider Unavail able Hellen Phillip Primary Care Provider Aruna Mcneill MD Primary Care Provider Kwasi Galeano PharmD Unavailable [phone] Encounter Details Date Type Department Care Team ([facility] Contact Info) Description 06/14/2022 Orders Only [facility] [address] [place] [address] Mariano Guan MD [address] [place], [place] [phone] Type 2 diabetes mellitus without complication, without long-term current use of insulin ([facility]) (Primary Dx) Social History Tobacco Use Types [...] Upcoming Encounters Date Type Department Care Team ([facility] Contact Info) Description 11/06/2024 10:00 AM EDT Office Visit [facility] [place] [address] Aruna Mcneill MD [facility] [place] [address] 11/30/2024 9:30 AM EDT Telemedicine [facility] [place] [address] 12/17/2024 9:30 AM EDT Medication Management [address] [address] Kwasi Galeano, [place] [address] documented as of this encounter Visit Diagnoses Diagnosis Type 2 diabetes mellitus without complication, without long-term current use of insulin ([facility])- Primary documented in this encounter Additional Health Concerns Assessment Noted Time PHQ-9 Depression Total Score: 22 022 11:07 AM EST documented as of this encounter Care Teams Patient Navigator Relationship Specialty Start Date End Date Ayan Gilbert AGNP PCP - General Family Medicine 06/08/22 03/30/23 Hellen Phillip ANP [address] [place] [address] PCP - General Family Medicine 03/31/23 08/31/23 [place] [address] PCP - General Family Medicine 09/01/23 Kwasi Galeano, PharmD [address] [place], [place] [phone] Pharmacist Internal Medicine 11/25/23 documented as of this encounter
--- OUTSIDE RECORDS SUMMARY | 2024-10-31 15:46 | XMS_ITS | Encounter Summary ---
Author Organization [employer] Address [address] [place] [address] Care Team Providers Care Plugger Man Name Role Phone Vladimir Ayan MARTINES Primary Care Provider Unavail able Hellen Phillip Primary Care Provider [phone] Aruna Mcneill MD Primary Care Provider [phone] Kwasi Galeano PharmD Unavailable [phone] Encounter Details Date Type Department Care Team ([facility] Contact Info) Description 06/14/2022 Orders Only [facility] [address] [place] [address] [phone] Odilon Lycnh RN [address] [place], [place] [phone] Social History Tobacco Use Types Packs/Day Years [...] Upcoming Encounters Date Type Department Care Team ([facility] Contact Info) Description 11/06/2024 10:00 AM EDT Office Visit [facility] [address] [place] [address] Ar[place] [address] 11/30/2024 9:30 AM EDT Telemedicine [address] [phone] 12/17/2024 9:30 AM EDT Medication Management [address] [phone] Kwasi Galeano, Tung [address] [place] [address] documented as of this encounter Visit Diagnoses Not on filedocumented in this encounter Additional Health Concerns Assessment Noted Time PHQ-9 Depression Total Score: 22 022 11:07 AM EST documented as of this encounter Care Teams Plugger Man Relationship Specialty Start Date End Date Ayan Gilbert AGNP PCP - General Family Medicine 06/08/22 03/30/23 Hellen Phillip ANP [address] [place] [address] PCP - General Family Medicine 03/31/23 08/31/23 Aruna Mcneill MD [address] [place] [address] PCP - General Family Medicine 09/01/23 Kwasi Galeano, PharmCharla [address] [place] [address] Pharmacist Internal Medicine 11/25/23 documented as of this encounter
--- OUTSIDE RECORDS SUMMARY | 2024-10-31 15:46 | XMS_ITS | Clinical Summary ---
Author Organization [employer] Address [address] [place] [address] Care Team Providers Care Interactive Media Marketing Strategist Name Role Phone Aruna Mcneill MD Primary Care Provider [phone] Kwasi Galeano PharmD Unavailable [phone] Allergies Active Allergy Reactions Criticality Noted Date Comments Empagliflozin Rash Low 09/22/2021 Metformin 09/22/2021 Other reaction(s): Abdominal discomfort Medications aspirin 81 MG EC tablet Take 1 tablet by mouth in the morning. 06/25/20 19 Active rosuvastatin (Crestor) 40 MG tablet take 1 tablet by oral route QHS 06/25/20 19 Active clopidogrel (Plavix) 75 MG tablet Take 75 mg by mouth in the morning. 07/14/19 23 Active Blood Glucose Monitoring Suppl (FreeStyle Lite) w/Device kit 1 Dose 4 times daily. Check before meals 3 times a day, one time 2 hours after the biggest meal of the day, and as needed when you feel sick. Faroese label 1 kit 10/31/19 24 Active ciclopirox (Loprox) 0.77 % cream Apply topically 2 times daily. 30 g 3 11/01/19 24 Active nitroglycerin (Nitrostat) 0.4 MG SL tablet DISSOLVE 1 TABLET UNDER THE TONGUE EVERY 5 MINUTES NEEDED FOR CHEST PAIN. CALL 911 IF NO RELIEF 09/29/19 24 Active magnesium oxide (Mag-Ox) 400 MG tabletIndications :Migraine without aura, not intractable, without status migrainosus TAKE 1 TABLET BY MOUTH EVERY MORNING 90 tablet 3 01/13/20 24 Active TRUEplus Lancets 33G miscIndications:T ype 2 diabetes mellitus without complications (CMS/HCC) TEST BLOOD SUGAR THREE TIMES DAILY 100 each 2 05/29/20 24 Active Alcohol Swabs (Alcohol Prep) 70 % padsIndications:T ype 2 diabetes mellitus without complications (CMS/HCC) USE THREE TIMES DAILY 100 each 2 05/29/20 24 Active metoprolol succinate XL (Toprol-XL) 50 MG 24 hr tabletIndications :Essential hypertension TAKE 1 TABLET BY MOUTH EVERY MORNING 90 tablet 1 06/13/20 24 Active lisinopril-hydroC HLOROthiazide 20-12.5 MG tablet TAKE 2 TABLETS BY MOUTH ONCE DAILY IN THE MORNING 180 tablet 1 07/09/20 24 Active FREESTYLE LITE test stripIndications: Type 2 diabetes mellitus without complications (CMS/HCC) TEST BLOOD SUGAR THREE TIMES DAILY 100 strip 11 08/15/19 25 Active dapagliflozin (Farxiga) 10 MGIndications:Typ e 2 diabetes mellitus with hyperglycemia, without long-term current use of insulin (CMS/HCC) Take 1 tablet (10 mg) by mouth Once per day. 90 tablet 3 08/20/19 25 Active nicotine polacrilex (Nicorette) 4 MG gum Chew 1 each (4 mg) if needed for smoking cessation. 100 each 1 10/27/19 25 Active nicotine (Nicoderm, Step 3) 7 MG/24HR patch Place 1 patch on the skin 1 (one) time each day at the same time. For 2 weeks, to start after 14 mg patch 30 patch 1 10/27/19 25 Active nicotine (Nicoderm, Step 2) 14 MG/24HR patch Place 1 patch on the skin 1 (one) time each day at the same time. For 2 weeks, to start after 21 mg patch 30 patch 1 10/27/19 25 Active nicotine (Nicoderm, Step 1) 21 MG/24HR patch Place 1 patch on the skin 1 (one) time each day at the same time. For 6 weeks 30 patch 3 10/27/19 25 Active cholecalciferol (Vitamin D-3) 25 MCG (1000 UT) tabletIndications :Vitamin D Deficiency Take 1 tablet (25 mcg) by mouth Once per day. 90 tablet 3 10/27/19 25 2025 Active Semaglutide, 2 MG/DOSE, (Ozempic, 2 MG/DOSE,) 8 MG/3ML solution pen-injectorIndic ations:Type 2 diabetes mellitus with hyperglycemia, without long-term current use of insulin ([facility]) Inject 0.75 mL (2 mg) under the skin 1 (one) time per week. 3 mL 3 10/27/19 25 Active Magnesium 400 MG capsuleIndication s:Migraine without aura, not refractory Take 1 capsule by mouth in the morning. 90 capsule 11 10/16/19 23 2024 Discontinued(M ed list cleanup (will not trigger notification to Pharmacy)) omega-3 acid ethyl esters (Lovaza) 1 g capsuleIndication s:Hyperlipidemia, unspecified hyperlipidemia type TAKE 1 CAPSULE BY MOUTH TWICE DAILY IN THE MORNING AND IN THE EVENING 180 capsule 1 06/13/20 24 2024 Discontinued(D iscontinued by another clinician) cholecalciferol VITAMIN D (Vitamin D-3) 50 MCG (1999) tabletIndications :Low vitamin D level TAKE 1 TABLET BY MOUTH EVERY MORNING 90 tablet 1 07/09/20 24 2024 Discontinued semaglutide (Ozempic) 2 MG/1.5ML solution pen-injector Inject 1 mg under the skin 1 (one) time per week. 2 each 08/07/19 25 2024 Discontinued nicotine (Nicoderm, Step 1) 21 MG/24HR patch Place 1 patch on the skin 1 (one) time each day at the same time. For 6 weeks 2024 Discontinued(R eorder (will not trigger notification to Pharmacy)) nicotine (Nicoderm, Step 2) 14 MG/24HR patch Place 1 patch on the skin 1 (one) time each day at the same time. For 2 weeks, to start after 21 mg patch 2024 Discontinued(R eorder (will not trigger notification to Pharmacy)) nicotine (Nicoderm, Step 3) 7 MG/24HR patch Place 1 patch on the skin 1 (one) time each day at the same time. For 2 weeks, to start after 14 mg patch 2024 Discontinued(R eorder (will not trigger notification to Pharmacy)) nicotine polacrilex (Nicorette) 4 MG gum Chew 4 mg if needed for smoking cessation. 2024 Discontinued(R eorder (will not trigger notification to Pharmacy)) Active Problems Problem Noted Date Diagnosed Date Tobacco dependence 11/06/2023 Assessment & Plan (08/09/2024 8:28 AM EST): - smoking > 20 pack years - refer to lung cancer screening program Assessment & Plan (11/06/2023 12:28 PM EDT): - smoking > 20 pack years - refer to lung cancer screening program Erectile dysfunction 11/06/2023 Assessment & Plan (11/06/2023 12:55 PM EDT): - following with Dr. Hernández, [facility] urology - s/p circumcision and frenulectomy on 02/01/22 for balanitis and phimosis - continue current medication PDE5 inhibitor with caution History of ME (myocardial infarction) 10/30/2023 Mood disorder 09/03/2022 Assessment & Plan (08/09/2024 8:28 AM EST): - behavioral health service provider: [facility] - will check at next visit if patient is currently connected with [facility] Assessment & Plan (11/06/2023 12:29 PM EDT): - behavioral health service provider: [facility] - will check at next visit if patient is currently connected with [facility] Assessment & Plan (09/17/2022 9:04 AM EST): Patient is managed by [facility] Last appointment was 08/24/22 Assessment & Plan (09/03/2022 5:38 PM EST): PHQ: 15, placed BHN referral, mentioned patient does not understand zoom or telehealth visits, he needs something in person. Class 1 obesity due to exces s calories with serious comorbidity and body mass index (BMI) of 32.0 to 32.9 in adult 09/03/2022 Assessment & Plan (11/06/2023 12:36 PM EDT): - work on lifestyle modifications - patient is on GLP-1 RA Essential hypertension 06/10/2022 Assessment & Plan (08/12/2024 1:13 PM EST): -Goal BP < 140/90 per JNC-8 and < 130/80 per ACC/AHA guideline (Treatment threshold >=130/80) -BP not at goal, questionable mediation adherence. -Continue working on lifestyle modifications -Recommended self-monitoring BP. -Continue current medications at this time, but will consider decreasing pill burden to improve adherence -Continue metoprolol succinate 50 mg daily -Continue lisinopril / hctz TWO 20/12.5 mg tablets daily; consider changing to 40/25 mg daily -Treatment Hx: -Follow up in 3 mo, sooner if any problem arises Assessment & Plan (11/06/2023 1:00 PM EDT): -Goal BP < 140/90 per JNC-8 and < 130/80 per ACC/AHA guideline (Treatment threshold >=130/80) -BP not at goal, questionable mediation adherence. -Continue working on lifestyle modifications -Recommended self-monitoring BP. -Continue current medications at this time, but will consider decreasing pill burden to improve adherence -Continue metoprolol succinate 50 mg daily -Continue lisinopril / hctz 20/12.5 mg daily -Treatment Hx: -Follow up in 3 mo, sooner if any problem arises Assessment & Plan (01/05/2023 12:30 PM EDT): Refilled nitroglycerin at patients request. Assessment & Plan (11/03/2022 12:30 PM EDT): Discussed how he is on medications for his high blood pressure to lower it and that needs to be managed over time. They are not to cure his HTN, and that he will need to keep taking them. If he stops his bp with inevitably become high again. Counseled low-salt diet, advised increase in exercise to 30 min/ day most days, weight loss if applicable. call clinic for high BP >170/90 or low <90/60. Assessment & Plan (10/15/2022 12:36 PM EDT): His BP is still not controlled. I am doubling his lisinopril-hydrochlorothiazide to 40/25 mg PO every day F/up 2 weeks for BP check He was requesting a new nitroglycerin vial. He has had his current one since 2019. He uses it once or twice a month. It was prescribed by cardiology. He has a cardiology visit next week. I instructed him to discuss his nitroglycerin use with his questioned documents examiner He stated he had an echocardiogram 2 days ago. Assessment & Plan (09/17/2022 5:08 PM EST): His BP is still not controlled, I will increase his amlodipine from 5 mg every day to 10 mg every day. F/up: 10/15 for HTN/DM Assessment & Plan (09/03/2022 5:36 PM EST): Patient to monitor BP, for two weeks and return for medication titration. Ischemic heart disease 06/10/2022 Assessment & Plan (08/09/2024 8:28 AM EST): - questioned documents examiner: ANNIE, last seen in September 2023 - Echo - will obtain from [facility] - last stress test - [facility] - continue statin, ACEI, BB, ASA, and clopidogrel. Assessment & Plan (11/06/2023 1:01 PM EDT): - [facility] in [facility] 2023 - Echo - will obtain from [facility] - last stress test - will obtain from [facility] - continue statin, ACEI, BB, ASA, and clopidogrel. Neuropathy due to type 2 diabetes mellitus 06/10 Assessment & Plan (11/06/2023 12:45 PM EDT): Improve glycemic control Assessment & Plan (01/05/2023 9:44 AM EDT): S/P coronary artery stent placement 06/10/2022 Vascular insufficiency 12/23/2021 Obstructive sleep apnea syndrome 06/01/2021 Assessment & Plan (08/09/2024 8:27 AM EST): - following with [facility] sleep medicine clinic, last seen in December 2022 - sleep study on 02/01/23 AutoPAP 5-20 cm H2O - recommended to check with sleep medicine clinic for CPAP and its coverage - patient has lost weight and may have improved Assessment & Plan (11/06/2023 12:50 PM EDT): - following with [facility] sleep medicine clinic, last seen in December 2022 - sleep study on 02/01/23 AutoPAP 5-20 cm H2O - recommended to check with sleep medicine clinic for CPAP and its coverage - patient has lost weight and may have improved Assessment & Plan (10/14/2022 3:43 PM EDT): Did you hear from sleep medicine? Stable angina 06/01/2021 Polyp of colon 03/05/2021 Abdominal wall hernia 08/30/2017 Hyperlipidemia 08/30/2017 Assessment & Plan (08/12/2024 1:11 PM EST): - current medication: rosuvastatin 40 mg at bedtime - high-intensity statin therapy is recommended because he has ASCVD. - continue working on lifestyle modifications Assessment & Plan (11/06/2023 12:34 PM EDT): - current medication: rosuvastatin 40 mg at bedtime - high-intensity statin therapy is recommended because he has ASCVD. - continue working on lifestyle modifications Assessment & Plan (01/05/2023 11:38 AM EDT): Lipid panel ordered. Patient instructed to get labs drawn one week before next appointment. F/up 6 weeks. Assessment & Plan (09/17/2022 5:11 PM EST): Patient is taking the max does of rosuvastatin 40mg, and ezetimibe 10mg. He is also taking omega 3 fatty acids We discussed how improving his diet and exercise is very important for him right now. Migraine without aura, not refractory 08/30/2017 Assessment & Plan (11/06/2023 12:33 PM EDT): - He is uncertain what he is taking for migraine - Continue magnesium and B2 - Patient has been taking Fioricet for acute migraine attack - Consider referring to neurologist, if he has not been seen yet Assessment & Plan (11/03/2022 12:31 PM EDT): States that the magnesium and B2 seem to be helping. He reports his migraines have not been as bad. Will discuss at next visit. Assessment & Plan (10/15/2022 12:33 PM EDT): I did not have time to discuss his migraine today. I gave him some mag and b2. If those don't help by his follow up in 2 weeks maybe we will try a triptan Type 2 diabetes mellitus 08/30/2017 Assessment & Plan (08/12/2024 1:09 PM EST): A1C 10% on 08/07/24 Co-managing with our pharmacist Encourage to improve adherence to self-monitoring glucose and medication adherence. Continue working on lifestyle modifications. Increase semaglutide 1 mg weekly, titrate up as tolerated to maximum dose Continue dapagliflozin (Farxiga) Treatment hx: tried repaglinide, which was discontinued because restarting SGLT2i. Intolerance to empagliflozin and metformin. Comprehensive foot exam: 08/07/24 Diabetic eye exam: November 2023 Microalbumin: 10/31/23 Lipid profile: 10/31/23 Dental care: [facility] Assessment & Plan (11/06/2023 12:45 PM EDT): A1C 10.4% on 10/31/23 Encourage to improve adherence to self-monitoring glucose and medication adherence. Continue working on lifestyle modifications. Currently on semaglutide 0.5 mg weekly, titrate up as tolerated to maximum dose Continue repaglinide 1 mg with meal Comprehensive foot exam: 10/31/23 Diabetic eye exam: 09/10/22, upcoming appointment in November 2023 Microalbumin: 10/31/23 Lipid profile: 10/31/23 Dental care: [facility] Assessment & Plan (01/05/2023 12:29 PM EDT): A1C = 9.3 Glu = 207 Swapping patient over to ozempic from trulicity due to ozempic potentially being more effective at lowering A1C. Patient has allergy to metformin and SGLT2 inhibitors. We will try ozempic to see if we can control his blood sugar. May need to start insuline if not. Repaglinide had to be reduced to 1 mg TID due to D2D interaction with Plavix. Counseled weight loss, dietary changes including watching carbs, exercise 30 min/ day, most days. ED precautions discussed. Assessment & Plan (12/29/2022 10:53 AM EDT): Reduced prandin dose to 1 mg TID down from 2 mg BID due to d2d interaction between prandin and plavix. Received phone call from [facility] pharmacy warning me of this potential interaction. Assessment & Plan (11/16/2022 10:41 AM EDT): Current Outpatient Medications on File Prior to Visit Medication Sig Dispense Refill ? ? cholecalciferol (Vitamin D-3) 50 MCG (2000 UT) tablet TAKE 1 TABLET BY MOUTH EVERY MORNING 90 tablet 1 ? ? Alcohol Swabs (Alcohol Prep) 70 % pads USE THREE TIMES DAILY ? ? aspirin 81 MG EC tablet Take 1 tablet by mouth in the morning. ? ? bacitracin 500 UNIT/GM ointment apply topically to skin as needed ? ? clopidogrel (Plavix) 75 MG tablet Take 75 mg by mouth in the morning. ? ? cyanocobalamin (Vitamin B-12) 1000 MCG tablet Take 1 tablet by mouth at bed time. ? ? dulaglutide (Trulicity) 4.5 MG/0.5ML solution pen-injector Inject 4.5 mg under the skin 1 (one) time per week. 4 each 11 ? ? ezetimibe (Zetia) 10 MG tablet Take 1 tablet by mouth at bed time. ? ? glucose blood (FREESTYLE LITE) test strip every 8 (eight) hours. ? ? metoprolol succinate XL (Toprol-XL) 50 MG 24 hr tablet Take 1 tablet by mouth every morning 90 tablet 1 ? ? nitroglycerin (Nitrostat) 0.[address] 1 tablet by sublingual route once daily ? ? omega-3 acid ethyl esters (Lovaza) 1 g capsule TAKE 2 CAPSULES BY MOUTH TWICE DAILY IN THE MORNING AND EVENING 360 capsule 0 ? ? rosuvastatin (Crestor) 40 MG tablet take 1 tablet by oral route QHS ? ? TRUEplus Lancets 33G [facility] [place] BLOOD SUGAR THREE TIMES DAILY No current facility-administered medications on file prior to visit. Taking meds as Rx'd. Home blood sugars are still not controlled, I will increase his repaglinide to 2mg tid. A1C 10.1 We discussed his diet and current A1C. If we are not able to get his A1C trending downward in the next 3 months we will need to start insulin. F/up: 2 months for A1C Assessment & Plan (09/17/2022 5:10 PM EST): Home blood sugars are still not controlled, I will increase his repaglinide to 1mg tid. F/up: 1 month Encounters Date Type Department Care Team Description 10/26/2024 9:00 AM EDT Clinical Support [address] [address] Shannan Escobar, PharmD Essential hypertension (Primary Dx); Tobacco dependence; Vitamin D deficiency; Migraine without aura, not refractory; Type 2 diabetes mellitus with hyperglycemia, without long-term current use of insulin ([facility]); Hyperlipidemia, unspecified hyperlipidemia type; Myocardial infarction, unspecified ME type, unspecified artery ([facility]) 10/26/2024 Orders Only [facility] [address] [place] [id number] Yara Mahan MD Low vitamin D level (Primary Dx); Type 2 diabetes mellitus with hyperglycemia, without long-term current use of insulin ([facility]) 10/26/2024 Refill [facility] [address], [place] [phone] Shannan Escobar, PharmD 10/25/2024 Patient Outreach [facility] [address] [place] [address] Aruna Mcneill MD Pre-visit Planning (SDOH negative. Tobacco screening positive. ) 10/22/2024 Telephone [facility] [address] [place] [address] [phone] Aruna Mcneill MD chart prep 10/18/2024 Orders Only [facility] [address] [place] [address] Ivelisse Greene FNP Essential hypertension (Primary Dx) 10/18/2024 Orders Only [facility] [address] [place] [phone] Yara Mahan MD Essential hypertension (Primary Dx) 10/18/2024 Orders Only [facility] [address] [place] [id number] Yara Mahan MD Essential hypertension (Primary Dx) 10/12/2024 Orders Only [address] [address] Aruna Mcneill MD Essential hypertension (Primary Dx); Type 2 diabetes mellitus with hyperglycemia, without long-term current use of insulin (CMS/HCC) 10/12/[address] [address] Aruna Mcneill MD 10/08/2024 11:00 AM EDT Office Visit [address] [address] Lakshmi España NP Generalized rash (Primary Dx); Cellulitis of right foot 10/08/2024 Travel 10/02/[address] [address] Aruna Mcneill MD ER Follow-up 10/01/2024 Orders Only GENERIC EXTERNAL DATA DEPARTMENT Provider, Generic External Data 10/01/[address] [address] Aruna Mcneill MD Nurse Triage 09/21/2024 Population Health Risk Score [facility] ([facility] Department [address] [id number] Provider, Population Health Generic 08/20/2024 Travel 08/15/[address] [address] Hellen Phillip ANP Type 2 diabetes mellitus without complications (CMS/HCC) 08/07/2024 9:15 AM EST Office Visit [address] [place] [address] Aruna Mcneill MD Obstructive sleep apnea syndrome (Primary Dx); Essential hypertension; Ischemic heart disease; Type 2 diabetes mellitus with hyperglycemia, without long-term current use of insulin ([facility]); Mood disorder ([facility]); Tobacco dependence; Weight loss; Encounter for immunization; Vitamin D deficiency; B12 deficiency; Dietary counseling; Exercise counseling; Class 1 obesity due to excess calories with serious comorbidity and body mass index (BMI) of 30.0 to 30.9 in adult; Hyperlipidemia, unspecified hyperlipidemia type 08/07/2024 Travel 08/03/2024 Telephone [facility] [address] [place] [address] Aruna Mcneill MD Nurse Triage from Last 3 Months Immunizations Name Administration Dates Next Due HepB-CpG 09/06/2024,01/19/2024 Influenza Injectable Quadriv alant Preservative Free IIV4 MDCK 04/27/2022,04/22/2020,05/28/2019 Influenza injectable quadriv alent IIV4 with preservative 05/10/2018,08/30/2017 Influenza injectable quadriv alent preservative free 09/19/2023,04/29/2021 Influenza, seasonal, injecta ble, preservative free 08/07/2024 Moderna Covid-19 Vaccine 12+ 11/23/2021,10/16/19 21,09/17/2020 Moderna Covid-19 Vaccine 6+ Bivalent 07/28/2022 Pfizer Covid-19 Vaccine 12+ 08/07/2024, 4,05/19/2021 Pneumococcal Conjugate PCV 20 04/27/2022 Pneumococcal Polysaccharide PPSV23 08/30/2017 RSV Bivalent 11/25/2023 Tdap 01/22/2020 Zoster, Recombinant 01/22/2020,05/28/2019 Family History Medical History Relation Name Comments Diabetes Father Hypertension Father Diabetes Mother Relation Name Status Comments Father Mother Social History Tobacco Use Types Packs/Day Years Used Date Smoking Tobacco: Every Day Cigarettes 0.6 35 Passive Smoke Exposure: Current Smokeless Tobacco: Never Tobacco Cessation:Ready to Q uit: Not Asked; Counseling Given: Not Answered Alcohol Use Standard Drinks/Week Comments Not Currently 0 (1 standard drink = 0.6 oz pur e alcohol) Depression Answer Date Recorded Patient Health Questionnaire-9 Score 17 08/07/2024 Patient Health Questionnaire-9 Score 17 08/07/2024 Last PHQ-9: Questionnaire Data Not on file 0 08/07/2024 Housing Stability Answer Date Recorded What is your housing situation today? I have moises akur 10/25/[address] you li [...] Orientation Straight 05/10/2022 10 :33 AM EDT Last Filed Vital Signs Vital Sign Reading Time Taken Comments Blood Pressure 132/88 10/26/2024 9:26 AM EDT patient reported Pulse 97 10/26/2024 9:26 AM EDT patient reported Temperature 36.6 ??C (97.9 ??F) 10/08/2024 1 1:02 AM EDT Respiratory Rate 21 10/08/2024 11:0 2 AM EDT Oxygen Saturation 96% 10/08/2024 11: 02 AM EDT Inhaled Oxygen Concentration - - Weight 80.6 kg (177 lb 9.6 oz) 10/08/2024 11:02 AM EDT Height 162.6 cm (5' 4 ) 10/08/2024 11:0 2 AM EDT Body Mass Index 30.48 10/08/2024 11:02 AM EDT Plan of Treatment Upcoming Encounters Date Type Department Care Team (Late st Contact Info) Description 11/06/2024 10:00 AM EDT Office Visit [facility] [address] [place] [address] Aruna Mcneill MD [address] [place] [address] 11/30/2024 9:30 AM EDT Telemedicine [address] [address] 12/17/2024 9:30 AM EDT Medication Management [address] [address] Kwasi Galeano, PharmD [address] [place] [address] Health Maintenance Due Date Last Done Comments CT Colonography 1962 FIT DNA/Cologuard 1962 FIT 1962 FOBT 1962 HIV Screening 1962 Sigmoidoscopy 1962 Lung Cancer Screening 2012 Colonoscopy 11/24/2023 11/23/2021 Colorectal Cancer Screening 11/24/2023 Diabetes: Hemoglobin A1C 11/05/2024 025, 01/19/2024, 10/31/2023, Additional history exists Alcohol/Substance Use Screening 08/07/2025 08/07/2024 Depression Screening 08/07/2025 08/07/2024, 08/07/19 25 Diabetes: Foot Exam 08/07/2025 08/07/2024 Diabetes: Urine Protein Screening 08/08/2025 08/08/2024, 10/31/2023, 08/14/2020, Additional history exists Lipid Panel 08/08/2025 08/08/2024, 10/10, 11/03/2022, Additional history exists Tobacco Screening 10/08/2025 10/08/2024 SDOH Screening 10/25/2025 10/25/2024 Eye Exam 12/06/2025 12/07/2023, 11/09, 12/07/2023, Additional history exists DTaP/Tdap/Td Vaccines (2 - Td or Tdap) 01/21/2030 01/22/2020 Zoster Vaccines Completed 01/22/2020, 05/28/2019 Pneumococcal Vaccine: 50+ Years Completed 04/27/2022, 08/30/2017 Hepatitis C Screening Completed 09/08/2022 RSV Patients and Patients Aged 60 years or older Completed 11/25/2023 COVID-19 Vaccine Completed 08/07/2024, 05/2024, 07/28/2022, Additional history exists Influenza Vaccine Completed 08/07/2024, , 04/27/2022, Additional history exists Hepatitis B Vaccines Completed 09/06/2024, 01/19/20 HIB Vaccines Aged Out No longer eligi ble based on patient's age to complete this topic HPV Vaccines Aged Out No longer eligi ble based on patient's age to complete this topic Hepatitis A Vaccines Aged Out No long er eligible based on patient's age to complete this topic IPV Vaccines Aged Out No longer eligi ble based on patient's age to complete this topic Meningococcal Vaccine Aged Out No lizandro samantha eligible based on patient's age to complete this topic RSV under 20 months Aged Out No longe r eligible based on patient's age to complete this topic Rotavirus Vaccines Aged Out No longer eligible based on patient's age to complete this topic Goals Goal Patient Goal Type Associated Problems Recent Progress Patient-Stated? Author Blood Pressure < 140/90 Blood Pressure 132/88(2024 9:26 AM EDT) No Kwasi Galeano PharmD Hemoglobin A1c < 7 Result Component 10(08/07/2024 9:36 AM EST) No Kwasi Galeano PharmD Procedures Procedure Name Priority Date/Time Associated Diagnosis Comments SED RATE BY MODIFIED WESTERGREN Routine 10/01/2024 12:18 PM EDT C-REACTIVE PROTEIN Routine 10/01/2024 12 :18 PM EDT MAGNESIUM Routine 10/01/2024 12:18 PM EDT COMPREHENSIVE METABOLIC PANEL Routine 10/01/2024 12:18 PM EDT CBC WITH AUTO DIFFERENTIAL Routine 10/01/2024 12:18 PM EDT TSH W/REFLEX TO FT4 Routine 08/08/2024 8 :09 AM EST Weight loss COMPREHENSIVE METABOLIC PANEL Routine 08/08/2024 8:09 AM EST Essential hypertension Type 2 diabetes mellitus with hyperglycemia, without long-term current use of insulin (CMS/HCC) ALBUMIN, RANDOM URINE W/CREATININE Routine 08/08/2024 8:09 AM EST Essential hypertension Type 2 diabetes mellitus with hyperglycemia, without long-term current use of insulin (CMS/HCC) LIPID PANEL WITH REFLEX TO DIRECT LDL Routine 08/08/2024 8:09 AM EST Ischemic heart disease Type 2 diabetes mellitus with hyperglycemia, without long-term current use of insulin (CMS/HCC) VITAMIN B12/FOLATE, SERUM PANEL Routine 08/08/2024 8:09 AM EST B12 deficiency VITAMIN D,25-OH,TOTAL,IA Routine 08/08/2024 8:09 AM EST Vitamin D deficiency CBC WITH AUTO DIFFERENTIAL Routine 08/08/2024 8:09 AM EST Weight loss POCT GLYCATED HEMOGLOBIN, TOTAL Routine 08/07/2024 9:36 AM EST Type 2 diabetes mellitus with hyperglycemia, without long-term current use of insulin (CMS/HCC) POCT GLUCOSE Routine 08/07/2024 9:26 AM EST Type 2 diabetes mellitus with hyperglycemia, without long-term current use of insulin (CMS/HCC) HEPATITIS C AB W/REFL TO HCV RNA, QN, PCR Routine 09/08/2022 8:23 AM EST Routine health maintenance HM COLONOSCOPY Routine 11/23/2021 from Last 3 Months or Most Recently Relevant to Health Maintenance Results * (ABNORMAL) CBC auto differential (10/01/2024 12:18 PM EDT) Only the most recent of2 resultswithin the time period is included. White Blood Count 12.2(H) 4.8 - 10.8 X10*3/uL [facility] Red Blood Count 4.95 4.60 - 5.80 X10*6/uL [facility] Hemoglobin 14.3 14.0 - 18.0 g/dl [facility] Hematocrit 41.1(L) 42.0 - 52.0 % [facility] Mean Corpuscular Volume 83.0 80.0 - 98.0 fL [facility] Mean Corpuscular Hemoglobin 28.9 27.0 - 33.0 pg [facility] Mean Corpuscular HGB Conc 34.8 31.0 - 36.0 g/dl [facility] Red Cell Distribution Width 12.9 11.0 - 16.0 % [facility] Platelet Count 218 160 - 400 X10*3/uL [facility] Mean Platelet Volume 9.4 9.4 - 12.4 fL [facility] Neutrophils Percent Auto 76.6(H) 45 - 73 % [facility] Imm Gran Pct Auto 0.7(H) 0.0 - 0.4 % [facility] Lymphocytes Percent Auto 16.8(L) 20 - 40 % [facility] Monocytes Percent Auto 5.3 2 - 11 % [facility] Eosinophils Percent Auto 0.5 0 - 4 % [facility] Basophils Percent Auto 0.1 0 - 2 % [facility] NRBC Pct Auto 0.0 0.0 - 0.2 /100WBC [facility] Neutrophils Absolute Auto 9.3(H) 2.0 - 8.3 x10*3/uL [facility] Imm Gran Abs Auto 0.08(H) 0.00 - 0.03 X10*3/uL [facility] Lymphocytes Absolute Auto 2.0 1.2 - 4.9 X10*3/uL [facility] Monocytes Absolute Auto 0.6 0.1 - 1.2 X10*3/uL [facility] Eosinophils Absolute Auto 0.1 0.0 - 0.4 X10*3/uL [facility] Basophils Absolute Auto 0.0 0.0 - 0.2 X10*3/uL [facility] NRBC Abs Auto 0.000 0.0 - 0.012 X10*3/uL [facility] 10/01/2024 12:1 8 PM EDT 10/01/2024 12:22 PM EDT Generic External Data Provider LAB BLOOD ORDERAB LES Final Result Performing Organization Address [facility]/ZIP Co de Phone Number [facility] [address] [place] [address] [phone] * (ABNORMAL) Sed Rate by Modified Uliergren (10/01/2024 12:18 PM EDT) Erythrocyte Sedimentation Rate 38(H) 0 - 15 MM/HR [facility] Comment:Patients with polycy themia and many hemoglobin abnormalitiesmay have depressed sed rates whereas patients with anemiamay have elevated sed rates. 10/01/2024 12:1 8 PM EDT 10/01/2024 12:22 PM EDT us Generic External Data Provider LAB BLOOD ORDERAB LES Final Result Performing Organization Address [facility]/ZIP Co de Phone Number [facility] [address] [place] [address] [phone] * (ABNORMAL) C-reactive Protein (10/01/2024 12:18 PM EDT) C Reactive Protein 21.28(H) < or = 0.50 mg/dL [facility] 10/01/2024 12:1 8 PM EDT 10/01/2024 12:22 PM EDT us Generic External Data Provider LAB BLOOD ORDERAB LES Final Result Performing Organization Address City/[facility]/ZIP Co de Phone Number [facility] [address] [place] [address] [phone] * Magnesium (10/01/2024 12:18 PM EDT) Magnesium 1.9 1.6 - 2.6 mg/dL [facility] 10/01/2024 12:1 8 PM EDT 10/01/2024 12:22 PM EDT Generic External Data Provider LAB BLOOD ORDERAB LES Final Result Performing Organization Address [facility] Co de Phone Number [facility] [address] [place] [address] [phone] * (ABNORMAL) Comprehensive Metabolic Panel (10/01/2024 12:18 PM EDT) Only the most recent of2 resultswithin the time period is included. Sodium 139 135 - 145 mmol/L [facility] Potassium 4.2 3.3 - 5.1 mmol/L [facility] Chloride 105 96 - 108 mmol/L [facility] Carbon Dioxide 24 22 - 29 mmol/L [facility] Anion Gap 14 12 - 20 [facility] Urea Nitrogen (BUN) 13 9 - 16 mg/dL [facility] Creatinine, Serum 0.83 0.5 - 1.4 mg/dL [facility] Creatinine Clr Calc Pharmacy 89.8 [facility] Comment:eGFR (calculated fro m the MDRD study equation) and eCrCl(calculated from the Cockcroft-Gault equation) are based ondifferent parameters and may not yield comparable results.If eCrCl result is absurd, please check patient'sheight/weight. Estimated Glomerular Filt Rate >60 [facility] Comment:Chronic Kidney Disea se: Estimated GFR < 60 mL/min/1.88p3Bypcqc Kidney Disease: Estimated GFR < 15 mL/min/1.73m2 Glucose 264(H) 60 - 115 mg/dL [facility] Calcium 9.1 8.4 - 10.2 mg/dL [facility] Bilirubin, Total 0.7 0.0 - 1.0 mg/dL [facility] Aspartate Amino Transferase 13 5 - 37 U/L [facility] Alanine Aminotransferase 10 0 - 40 U/L [facility] Total Protein 6.3(L) 6.5 - 8.0 g/dL [facility] Albumin Level 3.6 3.5 - 5.0 g/dL [facility] Alkaline Phosphatase 81 39 - 117 U/L [facility] 10/01/2024 12:1 8 PM EDT 10/01/2024 12:22 PM EDT us Generic External Data Provider LAB BLOOD ORDERAB LES Final Result [facility] [address] [place] [phone] * Vitamin D, 25-Hydroxy, Total, Immunoassay (08/08/2024 8:09 AM EST) Vitamin D 25-OH Total 39.8 >30 ng/mL [facility] Comment:Health Based Referen ce Values*< 20 ng/mL Bzylrdbbp32-90 ng/mL Insufficient> 30 ng/mL Sufficient*Fara DARBY. N Engl J Med. 2007;357:266-280Care must be taken in interpreting Vitamin D results fromdifferent laboratories and methodologies. Published datademonstrated that results from patients undergoinghemodialysis may show a negative bias when tested withvarious automated 25-OH vitamin D assays when compared toLC-MS/MS.When testing samples from patients whose predominant form ofVitamin D is Vitamin D2, such as patients receiving VitaminD2 supplementation, results that are subtherapeutic shouldbe confirmed with another method such as LC-MS/MS. Blood Venous blood specimen / Unknown 08/08/2024 8:09 AM EST 08/08/2024 11:25 AM EST us Aruna Mcneill MD LAB BLOOD ORDERABLES Final Resul t Performing Organization Address City/[facility]/ZIP Co de Phone Number [facility] [address] [place] [phone] * (ABNORMAL) Vitamin B12 (Cobalamin) and Folate Panel, Serum (08/08/2024 8:09 AM EST) Vitamin B12 181(L) 200 - 900 pg/mL [facility] Comment:NORMAL 200-900 PG/ML INDETERMINATE 160-199 PG/ML DEFICIENT < 160 PG/ML Folate 14.5 > or = 4.0 ng/mL [facility] Comment:Reference Values:> o r = 4.0 ng/mL< 4.0 ng/mL suggests folate deficiency Methotrexate, aminopterin and folinic acid(leucovorin) are chemotherapeutic agents whose molecularstructures are similar to folate; therefore, the Architectfolate assay cannot be used for patients using these drugs. Blood 08/08/2024 8:09 AM EST 08/08/2024 11:25 AM EST us Aruna Mcneill MD LAB BLOOD ORDERABLES Final Resul t Performing Organization Address [facility] Co de Phone Number [facility] [address] [place] [phone] * TSH with Reflex to Free T4 (08/08/2024 8:09 AM EST) TSH reflex Free T4 1.21 0.32 - 4.0 uIU/mL [facility] Blood 08/08/2024 8:09 AM EST 08/08/2024 11:25 AM EST us Aruna Mcneill MD LAB BLOOD ORDERABLES Final Resul t Performing Organization Address City/[facility]/ZIP Co de Phone Number [facility] [address] [place] [phone] * (ABNORMAL) Lipid Panel with Reflex to Direct LDL (08/08/2024 8:09 AM EST) Triglycerides 146 <150 mg/dL [facility] Comment:Desirable Triglyceri de: less than 150 mg/dLBorderline High Triglyceride 150-199 mg/dLHigh Triglyceride: 200-499 mg/dLVery High Triglyceride: greater than or equal to 5OO mg/dL Cholesterol 214(H) <200 mg/dL [facility] Comment:Desirable Cholestero l: less than 200 mg/dLBorderline High Cholesterol: 200-239 mg/dLHigh Cholesterol: greater than 239 mg/dL LDL Cholesterol Calculated 140(H) <100 mg/dL [facility] Comment:Desirable LDL: less than 100 mg/dLNear Optimal/Above Optimal LDL: 110- 129 mg/dLBorderline High LDL: 130-159 mg/dLHigh LDL: 160-189 mg/dLVery High LDL: greater than or equal to 190 mg/dL HDL Cholesterol 45 >40 mg/dL [facility] Comment:Desirable HDL: great er than 40 mg/dL Note: This HDL assay may give artificially low results in patients with liver disease. Blood 08/08/2024 8:09 AM EST 08/08/2024 11:25 AM EST us Aruna Mcneill MD LAB BLOOD ORDERABLES Final Resul t [facility] [address] [place], [place] [phone] * (ABNORMAL) Albumin, Random Urine W/Creatinine (08/08/2024 8:09 AM EST) Creatinine, Urine 113.85 mg/dL [facility] Microalbumin Urine 58.0 mg/L [facility] Microalbum Creatinine Ratio Ur 50.9(H) <30 ug/mg cr [facility] Comment:Albumin/Creatinine R atio Reference Ranges: Normal: < 30 ug/mg creatinine Microalbuminuria: 30 - 300 ug/mg creatinineClinical Albuminuria: > 300 ug/mg creatinine Urine 08/08/2024 8:09 AM EST 08/08/2024 11:16 AM EST us Aruna Mcneill MD LAB URINE ORDERABLES Final Resul t [facility] [address] [place] [phone] * (ABNORMAL) POCT HGB A1C (08/07/2024 9:36 AM EST) Hemoglobin A1C 10.0(A) 4.0 - 6.0 % QC Media Lot # [id number] Lot# Expiration Date Blood 08/07/2024 9:36 AM EST Aruna Mcneill MD POINT OF CARE TEST ENTER/EDIT OR DERABLES Final Result * (ABNORMAL) POCT Glucose (08/07/2024 9:26 AM EST) Glucose Blood, POC 244(A) 60 - 200 mg/dL QC Media Lot # [id number] Lot# Expiration Date 025 Blood Capillary blood specimen / Unknown 08/07/2024 9:26 AM EST Aruna Mcneill MD POINT OF CARE TEST ENTER/EDIT OR DERABLES Final Result * Hepatitis C Antibody with Reflex to HCV, RNA, Quantitative, Real-Time PCR (09/08/2022 8:23 AM EST) Hepatitis C Antibody NON-REACT CORBY NON-REACT CORBY [facility] Index 0.04 <1.00 [facility] [place] [facility] Comment: HCV antibody was non-reactive. There is no laboratory evidence of HCV infection. In most cases, no further action is required. However, if recent HCV exposure is suspected, a test for HCV RNA (test code 24188) is suggested. For additional information please refer to http://education.[employer]/faq/IBQ30g0 (This link is being provided for informational/ educational purposes only.) Blood Venous blood specimen / Unknown 09/08/2022 8:23 AM EST 09/08/2022 8:24 AM EST Narrative [facility] - 09/08/2022 9:34 PM EST FASTING:NO FASTING: NO Ayan MARTINES LAB BLOOD ORDERABLES Final Res ult [facility] [address] [facility], [facility], [place] [address] [facility] [address] [facility], ([address]) [place] [address] * Hm Colonoscopy (11/23/2021) Colonoscopy Normal Normal Narrative Imelda Winkler - 11/23/2021 Recommended 2 year follow up Historical Provider MD HEALTH MAINTENANCE Final Result from Last 3 Months or Most Recently Relevant to Health Maintenance [facility] Care Teams Interactive Media Marketing Strategist Relationship Specialty Start Date End Date Aruna Mcneill MD [address] [place] [phone] PCP - General Family Medicine 09/01/23 Kwasi Galeano, ChinoD [address] [place] [phone] Pharmacist Internal Medicine 11/25/23
--- OUTSIDE RECORDS SUMMARY | 2024-10-31 15:46 | XMS_ITS | Encounter Summary ---
Author Organization [employer] Address [address] [place] [address] Care Team Providers Care Gripper Installer Name Role Phone Aruna Mcneill MD Primary Care Provider [phone] Kwasi Galeano PharmD Unavailable [phone] Encounter Details Date Type Department Care Team ([facility] st Contact Info) Description 11/01/2023 Orders Only [facility] [address] [place], [place] [phone] Aruna Mcneill MD [address] [place], [place] [phone] Hyperlipidemia, unspecified hyperlipidemia type Social History Tobacco Use Types Packs/Day Years [...] Description 11/06/2024 10:00 AM EDT Office Visit [facility] [address] [place] [phone] Aruna Mcneill MD [address] [place] [phone] 11/30/2024 9:30 AM EDT Telemedicine [address] [address] 12/17/2024 9:30 AM EDT Medication Management [address] [address] Kwasi Galeano, Tung [address] [place] [phone] documented as of this encounter Visit Diagnoses Diagnosis Hyperlipidemia, unspecified hyperlipidemia type documented in this encounter Additional Health Concerns Assessment Noted Time PHQ-9 Depression Total Score: 14 023 10:35 AM EST documented as of this encounter Care Teams Gripper Installer Relationship Specialty Start Date End Date Aruna Mcneill MD [address] [place] [phone] PCP - General Family Medicine 09/01/23 Kwasi Galeano, PharmD [address] [place] [phone] Pharmacist Internal Medicine 11/25/23 documented as of this encounter
== END 2024-10-31 13:51 | disposition home or self-care (01) ==
LOC: HO.HUSH 13:23
PROVIDERS: PCP Family Medicine; Visit Provider Urology
DX: N40.0 Benign prostatic hyperplasia without lower urinary tract symptoms (principal); E11.69 Type 2 diabetes mellitus with other specified complication; N52.1 Erectile dysfunction due to diseases classified elsewhere; E29.1 Testicular hypofunction
CPT/HCPCS: 99214

== ENCOUNTER → 2024-10-31 13:22 | Outpatient (BNVA) | payer MEDICAID, SELFPAY | PROVIDERS: PCP Family Medicine; Visit Provider Urology | DX: N40.0 Benign prostatic hyperplasia without lower urinary tract symptoms (principal); E29.1 Testicular hypofunction; E11.69 Type 2 diabetes mellitus with other specified complication; N52.1 Erectile dysfunction due to diseases classified elsewhere | CPT/HCPCS: 99212 ==

== ENCOUNTER 2024-11-29 10:13 | Outpatient (REF) | payer MEDICAID, SELFPAY ==
--- NOTE | ~2024-11-29 | US_ITS ---
EXAMINATION: US LOWER EXTREMITY VENOUS (REFLUX EXAM), BILATERAL CLINICAL INFORMATION: Pain and swelling, lower extremities. COMPARISON: October 11, 2018. TECHNIQUE: Color flow triplex imaging and compression Doppler was performed to evaluate both the deep and the superficial systems bilaterally. To evaluate the superficial system, the examination was performed in the upright position. Color-flow Doppler ultrasound and compression ultrasound were utilized. In addition, maneuvers were utilized to demonstrate reflux. FINDINGS: 1. DEEP VENOUS ULTRASOUND OF THE RIGHT LOWER EXTREMITY: Common Femoral Vein: Compressible, normal respiratory variation and augmented flow. Femoral Vein: Compressible, normal color flow and augmentation. Popliteal Vein: Compressible, normal augmentation. Deep Reflux: There is no evidence of reflux in the deep system in either the common femoral vein, superficial femoral or the popliteal vein. There is no evidence of a Bean's cyst. 2. SUPERFICIAL ULTRASOUND WITH DOPPLER OF RIGHT LOWER EXTREMITY: GREAT SAPHENOUS VEIN: Saphenofemoral Junction: 0.5 cm; Reflux: 0 ms Proximal Thigh: 0.5 cm; Reflux: 0 ms Mid Thigh: 0.3 cm; Reflux: 0 ms Distal Thigh: 0.4 cm; Reflux: 0 ms At Knee: 0.3 cm; Reflux: 2556 ms Proximal Calf: 0.3 cm; Reflux: 0 ms Mid Calf: 0.3 cm; Reflux: 0 ms Distal Calf: 0.2 cm; Reflux: 0 ms DUPLICATED MEDIAL GREAT SAPHENOUS VEIN: Diameter: None imaged Reflux: NA DUPLICATED LATERAL GREAT SAPHENOUS VEIN: Diameter: None imaged Reflux: NA SMALL SAPHENOUS VEIN: Saphenopopliteal Junction: 0.2 cm; Reflux: 0 ms Proximal: 0.2 cm; Reflux: 0 ms Distal: 0.2 cm; Reflux: 0 ms VEIN OF GIACOMINI: Size: NA Reflux: NA PERFORATORS: Location: Small saphenous vein, mid segment. Great saphenous vein from the proximal thigh to the proximal calf. Size: 0.2 cm. Reflux: NA VARICOSITIES: Location: None imaged. Size: NA Reflux: NA 3. DEEP VENOUS ULTRASOUND OF THE LEFT LOWER EXTREMITY: Common Femoral Vein: Compressible, normal respiratory variation and augmented flow. Femoral Vein: Compressible, normal color flow and augmentation. Popliteal Vein: Compressible, normal augmentation. Deep Reflux: There is no evidence of reflux in the deep system in either the common femoral vein, superficial femoral or the popliteal vein. There is no evidence of a Bean's cyst. 4. SUPERFICIAL ULTRASOUND WITH DOPPLER OF LEFT LOWER EXTREMITY: GREAT SAPHENOUS VEIN: Saphenofemoral Junction: 0.5 cm; Reflux: 0 ms Proximal Thigh: 0.7 cm; Reflux: 0 ms Mid Thigh: 0.3 cm; Reflux: 0 ms Distal Thigh: 0.3 cm; Reflux: 0 ms At Knee: 0.2 cm; Reflux: 0 ms Proximal Calf: 0.2 cm; Reflux: 2404 ms Mid Calf: 0.2 cm; Reflux: 0 ms Distal Calf: 0.3 cm; Reflux: 0 ms DUPLICATED MEDIAL GREAT SAPHENOUS VEIN: Diameter: None imaged Reflux: NA DUPLICATED LATERAL GREAT SAPHENOUS VEIN: Diameter: None imaged. Reflux: NA SMALL SAPHENOUS VEIN: Saphenopopliteal Junction: 0.2 cm; Reflux: 0 ms Proximal: 0.2 cm; Reflux: 0 ms Distal: 0.2 cm; Reflux: 0 ms VEIN OF GIACOMINI: Size: NA Reflux: NA PERFORATORS: Location: Small saphenous vein proximal to mid segment. Great saphenous vein mid calf.. Size: 0.2 cm. Reflux: NA VARICOSITIES: Location: None Imaged Size: NA Reflux: NA US/US venous insuf bilat IMPRESSION: Right: Venous insufficiency, great saphenous vein at the knee level. Perforators without reflux. No gross varices. Left: Venous insufficiency, great saphenous vein below the knee. Perforators without reflux. No gross varices. Electronically signed by: Shayan Lyons MD 11/29/2024 11:54 AM EDT
== END 2024-11-29 10:14 | disposition home or self-care (01) ==
LOC: HO.US 10:13
PROVIDERS: PCP Family Medicine; Visit Provider Family Medicine
DX: M79.604 Pain in right leg (principal); M79.605 Pain in left leg; I99.8 Other disorder of circulatory system
CPT/HCPCS: 93970

== ENCOUNTER → 2024-11-29 10:16 | Outpatient (BNV) | payer MEDICAID, SELFPAY | PROVIDERS: PCP Family Medicine; Visit Provider Radiology Diagnostic Radiology | DX: M79.661 Pain in right lower leg (principal); M79.662 Pain in left lower leg; R22.43 Localized swelling, mass and lump, lower limb, bilateral | CPT/HCPCS: 93970 ==

== ENCOUNTER 2024-12-11 16:03 | Outpatient (REF) | payer MEDICAID, SELFPAY ==
--- OUTSIDE RECORDS SUMMARY | 2024-12-11 17:07 | XMS_ITS | Encounter Summary ---
Author Organization [employer] Address [address] [facility] [address] [place] [address] Care Team Providers Care Russian Teacher Name Role Phone Aruna Mcneill MD Primary Care Provider Kwasi Galeano PharmD Unavailable Reason for Visit * Reason Onset Date Comments No Show 12/06/2024 Encounter Details Date Type Department Care Team ([facility] st Contact Info) Description 12/06/[address] [facility] [address] [place] [address] Aruna Mcneill MD [address] [place] [address] No Show Social History Tobacco Use Types Packs/Day Years [...] AM EDT documented as of this encounter Miscellaneous Notes * Telephone Encounter - Sara Cullen RN - 12/06/2024 4:42 PM EDT TC placed to pt., reached daughter who is currently with pt. They agree to r/s missed appt. To 12/11 at 3pm with PCP * Telephone Encounter - Sariah Ortiz - 12/06/2024 3:53 PM EDT PT NS FOR Issues with short term memory x 4 months. Progressively getting worse. PCP Charito Yoon updated Registration Form. Last from 2021 in Media documented in this encounter Plan of Treatment Upcoming Encounters Date Type Department Care Team (Late st Contact Info) Description 12/17/2024 9:30 AM EDT Medication Management [facility] [address] [place] [phone] Kwasi Galeano, PharmD [address] [place] [address] 12/25/2024 1:30 PM EDT Clinical Support [address] [address] 02/06/2025 9:30 AM EDT Office Visit [address] [address] Aruna Mcneill MD [address] [place] [phone] 12/10/2025 1:30 PM EDT Medication Management [address] [address] Kwasi Galeano PharmD [address] [place] [phone] documented as of this encounter Goals Goal Patient Goal Type Associated Problems Recent Progress Patient-Stated? Author Blood Pressure < 140/90 Blood Pressure 124/92(2024 3:03 PM EDT) No Kwasi Galeano PharmD Hemoglobin A1c < 7 Result Component 9.1( 10:17 AM EDT) No Kwasi Galeano PharmCharla documented as of this encounter Visit Diagnoses Not on filedocumented in this encounter Additional Health Concerns Assessment Noted Time PHQ-9 Depression Total Score: 17 025 1:01 PM EST documented as of this encounter Care Teams Russian Teacher Relationship Specialty Start Date End Date Aruna Mcneill MD [address] [place] [phone] PCP - General Family Medicine 09/01/23 Kwasi Galeano PharmD [address] [place] [phone] Pharmacist Internal Medicine 11/25/23 documented as of this encounter
[2024-12-14 02:04] LABS: Methylmalonic Acid 656 nmol/L (69-390)
== END 2024-12-11 16:04 | disposition home or self-care (01) ==
LOC: HO.HHCL 16:03
PROVIDERS: Visit Provider Family Medicine
DX: E53.8 Deficiency of other specified B group vitamins (principal)
CPT/HCPCS: 36415; 83921

== ENCOUNTER 2024-12-12 08:09 | Outpatient (REF) | payer MEDICAID, SELFPAY ==
--- OUTSIDE RECORDS SUMMARY | 2024-12-12 08:14 | XMS_ITS | Encounter Summary ---
Author Organization [employer] Address [address] [place] [address] 7 [place] [address] Care Team Providers Care Support Dba Name Role Phone Aruna Mcneill MD Primary Care Provider [phone] Kwasi Galeano PharmD Unavailable [phone] Reason for Visit * Consultation (Routine) - Authorized Specialty Diagnoses / Procedures Referred By Contac t Referred To Contact Pharmacy Diagnoses Essential hypertension Yara Mahan MD [address] [place] [phone] Phone: tel: fax: Referral ID Status Reason Start Date Expiration Date Visits Requested Visits Authorized [id number] Authorized Continuity of Care 10/18/2024 10/18/2025 6 6 Encounter Details Date Type Department Care Team (Latest Contact Info) Description 12/07/2024 11:30 AM EDT Telemedicine [facility] [address] [place] [address] Shannan Escobar PharmD [address] [place], [place] [phone] Essential hypertension (Primary Dx); Migraine without aura, not refractory; Tobacco dependence; Vitamin D deficiency; Hyperlipidemia, unspecified hyperlipidemia type; Ischemic heart disease; Myocardial infarction, unspecified [place] type, unspecified artery (CMS/HCC) Social History Tobacco Use Types Packs/Day Years Used Date Smoking Tobacco: Every Day Cigarettes 0.6 35 Passive Smoke Exposure: Current Smokeless Tobacco: Never Comments:12/07/2024 - report s reducing to 0-1 cigarettes/day with NRT Alcohol Use Standard Drinks/Week Comments Not Currently 0 (1 standard drink = 0.6 oz pur e alcohol) Depression Answer Date Recorded Patient Health Questionnaire-9 Score 15 12/11/2024 Patient Health Questionnaire-9 Score 15 12/11/2024 Last PHQ-9: Questionnaire Data Not on file 0 12/11/2024 Housing Stability Answer Date Recorded What is [...] Answer Date Recorded Patient Health Questionnaire-2 Score 2 12/11/2024 Internet Access Answer Date Recorded Internet Access [...] Sign Reading Time Taken Comments Blood Pressure 133/78 12/07/2024 11:50 PM EDT pa allison reported Pulse 85 12/07/2024 11:50 PM EDT brandi ent reported Temperature - - Respiratory Rate - - Oxygen Saturation - - Inhaled Oxygen Concentration - - Weight - - Height - - Body Mass Index - - documented in this encounter Progress Notes * Shannna Escobar PharmD - 12/07/2024 11:30 AM EDT Pharmacy Consult Visit Type: MTM Visit Pharmacist: Shannan Escobar PharmD Referral Diagnosis: I10 (ICD-10-CM) - Essential hypertension Referral Expiration: 10/18/2025 Referring Provider: Yara Mahan MD Pharmacy Recommendations for Provider: Since patient receives monthly medboxes, please contact medbox pharmacist with any medication changes (initiations, discontinuation, dose adjustments) Please consider increasing magnesium oxide to 600 mg once daily for migraines Please consider assessing vitamin-D levels, as patient reports self- discontinuation of cholecalciferol. If levels are > 20 ng/mL, may consider formal discontinuation of cholecalciferol Please reassess FLP to assure triglyceride levels remain WNL, Lovaza discontinued 10/2024 due to abdominal pain Background/ Visit Intake Jesus Mora is a 64 y.o. patient here for a follow-up visit. Visit completed over the phone. Patient gave verbal consent for their spouse (Barb Barroso) to join the visit Visit complete using [employer]or (ID #[id number]) Allergies: is allergic to metformin and empagliflozin. Preferred Pharmacy: [facility] - [address] [id number] Medbox: Yes, last medbox on 11/15/2024. Assessment & Plan Adherence: History: Medication Reconciliation: Denies use of the following medications that are active in [facility] medlist: Mongo 3: denies use, reports self-discontinuing due to upset stomach (not active on medication list) Vitamin D: denies use, reports self-discontinuing due to upset stomach Denies taking with food OTC medication, vitamin, supplement use: reports Excedrin 2 tablets by mouth once daily (refer to migraine section) Adherence: Medication Organization: Uses medboxes from [facility] pharmacy Reports satisfaction with [facility] medbox program Missed doses: Denies missed doses Read/Write: Yes, in Urdu Goals of therapy: Improve adherence & minimize missed doses (<2 missed doses/week) Recommendations/Monitoring: Since patient receives monthly medboxes, please contact medbox pharmacist with any medication changes (initiations, discontinuation, dose adjustments) Please consider assessing vitamin-D levels, as patient reports self- discontinuation of cholecalciferol. If levels are > 20 ng/mL, may consider formal discontinuation of cholecalciferol Recommended patient to take cholecalciferol with food to prevent upset stomach. Patient verbalized understanding and agreed No adverse reactions listed on thermodynamicist labeling Mongo-3 was discontinued by Yara Mahan MD on 10/26/2024. Pharmacy reminded Med[facility] to remove Mongo-3 from the medication box Pharmacy unable to assess diabetes. Discussion differed to upcoming CDTM visit (12/17/2024) [facility] initially stated they would be available however did not respond after several call attempts. Later reported they forgot and went to the pharmacy. Visit started 10 minutes late using language line as a result Migraines Pharmacologic therapy: Magnesium oxide 400 mg by mouth once daily History Reports taking Excedrin 2 tablets daily to assist with migraines Patient reports openness to pharmacy discussing with PCP increasing the dose of magnesium for migraines Magnesium levels WNL 09/2024 Plan Pharmacy recommended to discontinue Excedrin, as this medication contains aspirin, to minimize bleeding risk. Patient verbalized understanding and agreed to discontinue use. 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) and hyperlipidemia Pharmacologic Therapy: Aspirin 81 mg by mouth once daily Rosuvastatin 40 mg by mouth once daily History: Mongo 3 discontinued by Yara Mahan MD on 10/26/2024 due to MATTIE upset stomach and subtherapeutic dose Abdominal pain reported in 3-5% of patients in clinical trials ([facility]) Lab monitoring: Lab Results Component Value Date CHOL 214 (H) 08/08/2024 LDLCHOLCAL 140 (H) 08/08/2024 HDL 45 08/08/2024 TRIG 146 08/08/2024 AST 13 10/01/2024 ALT 10 10/01/2024 ALKPHOS 133 09/08/2022 Goals of Therapy: ACC/AHA 2018 Cholesterol Guidelines: Ensure evidence based and safe use of medications for secondary prevention of ASCVD. Plan: Please reassess FLP to assure triglyceride levels remain WNL, Lovaza discontinued 10/2024 due to abdominal pain Pharmacy offered to discuss adding ezetimibe 10 mg daily with PCP. However, patient declined due toconcerns for medication-induced migraines 2024 ADA standards of care recommend a LDL-C threshold of 55 mg/dL in patients with T2DM and ASCVD Tobacco Dependence (Stage: Preparation) Pharmacologic Therapy: Nicotine 21 mg patch: place 1 patch on the skin once daily for 6 weeks Nicotine 4 mg gum: chew if needed for smoking cessation History: Smoking History Reports satisfaction with the 21 mg nicotine patch, reports that it is working Denies rotating sites Reports chewing 1 to 2 pieces of gum per day, reports still having a supply at home Reports no longer smoking daily; now smokes 0-1 cigarettes/day. Congratulated on progress Patient had previously reported smoking 1/2 ppd prior to starting NRT Reports starting to smoke at 21 years of age Reports that they are no longer waking up at night to smoke Patient declares readiness to quit is a 7 out of 10 Past Quit Attempts Endorses previous quit attempts Current Quit Attempt Patient is highly motivated and would, ideally, like to set a quit date for this weekend Patient declares confidence to quit of 7 out of 10 Goals of Therapy: Per the [facility] Treating Tobacco Use and Dependence Clinical Practice Guideline,assist the patient to achieve smoking cessation via assessment of desire to quit and administrationof smoking cessation aids as indicated. Plan: Discussed available resources to help with smoking cessation including medications & pharmacist-led clinic. Patient is agreeable to continue smoking cessation with [facility] pharmacist, upcoming appointment 12/17/2024 Education: Use of nicotine patch (can remove prior to bed in case of sleep disturbance, rotate site, remove prior to MRI) Reviewed different rotation sites. Patient verbalized understanding. Use of nicotine gum/lozenge (chew/dissolve over 20-30 mins, avoid food/drink for 15 mins prior). Hypertension and ischemic heart disease: Pharmacologic Therapy: Lisinopril hydrochlorothiazide 20-12.5 mg: take 2 tablets by mouth once daily in the morning Metoprolol succinate ER 50 mg by mouth once daily History: Reports checking BP once every morning Pertinent negatives include chest pain, head ache, blurry vision. Patient reported the following SMBP values: Reports that they do not log the dates however all BP readings are current from this week Date Blood pressure (mmHg) Heart rate (bpm) 12/07/24 133/78 85 This week 156/94 94 This week 145/82 95 This week 111/72 92 Average: 136/81 91 Recent Blood Pressure values: BP Readings from Last 4 Encounters: 11/06/24 118/75 10/26/24 132/88 10/08/24 135/84 10/08/24 130/70 Pulse Readings from Last 4 Encounters: 11/06/24 88 10/26/24 97 10/08/24 84 10/08/24 107 Lab monitoring Lab Results Component Value Date NA 139 10/01/2024 K 4.2 10/01/2024 CREATININE 0.83 10/01/2024 EGFR >60 10/01/2024 Goals of Therapy per JNC 8: Achieve & maintain BP <140/90mmHg Plan: Plan to continue regimen as prescribed, BP and HR WNL Patient is agreeable to record dates on BP log for review at 12/17/2024 CDTM appointment Education: Counseling provided to SMBP & log results for review in follow up. Reviewed BP goals, patient instructed to call office if extremes of BP are noted prior to follow up. Immunizations History: Immunization History Administered [...] date per the CDC Adult Immunization Schedule. Plan: Pharmacist reviewed immunization record and no vaccination gaps exist at this time. Patient Action Plan Reviewed today with plan to revisit at follow up in 12 months: annual medbox visit Patient will continue tobacco cessation with CD pharmacist, upcoming appointment 12/17/2024 Continue to adhere to medication Monitor blood sugar and blood pressure as directed Continue making progress with tobacco cessation Attend follow up appointments documented in this encounter Plan of Treatment Upcoming Encounters Date Type Department Care Team (Late st Contact Info) Description 12/17/2024 9:30 AM EDT Medication Management [address] [address] Kwasi Galeano, [place] [address] 12/25/2024 1:30 PM EDT [facility] [address] [facility] [place] [address] 02/06/2025 9:30 AM EDT Office Visit [address] [address] Aruna Mcneill MD [address] [place] [address] 12/10/2025 1:30 PM EDT Medication Management [facility] [address] [place] [address] Kwasi Galeano PharmD [address] [place] [address] documented as of this encounter Goals Goal Patient Goal Type Associated Problems Recent Progress Patient-Stated? Author Blood Pressure < 140/90 Blood Pressure 124/92(2024 3:03 PM EDT) No Kwasi Galeano PharmD Hemoglobin A1c < 7 Result Component 9.1( 10:17 AM EDT) No Kwasi Galeano PharmD documented as of this encounter Visit Diagnoses Diagnosis Essential hypertension- Primary Unspecified essential hypertension Migraine without aura, not refractory Tobacco dependence Tobacco use disorder Vitamin D deficiency Hyperlipidemia, unspecified hyperlipidemia type Ischemic heart disease Other specified forms of chronic ischemic heart disease Myocardial infarction, unspecified IL type, unspecified artery (CMS/HCC) documented in this encounter Additional Health Concerns Assessment Noted Time PHQ-9 Depression Total Score: 17 025 1:01 PM EST documented as of this encounter Care Teams Support Dba Relationship Specialty Start Date End Date Aruna Mcneill MD [address] [place] [address] PCP - General Family Medicine 09/01/23 Kwasi Galeano PharmD [address] [place] [phone] Pharmacist Internal Medicine 11/25/23 documented as of this encounter
[2024-12-13 17:59] LABS: Homocysteine 14.7 umol/L (< or = 15.2)
== END 2024-12-12 08:10 | disposition home or self-care (01) ==
LOC: HO.LAB 08:09
PROVIDERS: PCP Family Medicine; Visit Provider Family Medicine
DX: E53.8 Deficiency of other specified B group vitamins (principal)
CPT/HCPCS: 36415; 83090

== ENCOUNTER 2024-12-18 13:57 | Outpatient (REF) | payer MEDICAID, SELFPAY ==
--- NOTE | ~2024-12-18 | US_ITS ---
CLINICAL HISTORY: claudication Ankle-brachial index Comparison: None Findings: Right brachial artery 125 mmHg Right posterior tibial artery 136 mmHg Right dorsalis pedis artery 131 mmHg Left brachial artery 121 mmHg Left posterior tibial artery 125 mmHg Left dorsalis pedis artery 133 mmHg Impression: 1. Right MIHIR is normal, 1.09 2. Left MIHIR is normal, 1.06 Right Lower Extremity Arterial Ultrasound Comparison: None Findings: Continuous, pulsatile flow from the common femoral artery through the posterior tibial and dorsalis pedis arteries. No aneurysm or occlusion. Elevated velocity within right dorsalis pedis artery. Decreased velocities are seen within the deep femoral and distal femoral arteries. Velocities are otherwise within normal range. Monophasic waveforms are seen within the deep femoral and dorsalis pedis arteries. Waveforms are otherwise triphasic with prominent spectral broadening. Impression: No aneurysm or occlusion. Abnormal velocities and waveforms, detailed above. Monophasic waveforms equates to a 50-99% in diameter reduction. Triphasic waveforms with spectral broadening equates to a 1-49% in diameter reduction. Left Lower Extremity Arterial Ultrasound Comparison: None Findings: Continuous, pulsatile flow from the common femoral artery through the posterior tibial and dorsalis pedis arteries. No aneurysm or occlusion. Elevated velocities are seen within the common femoral, mid/distal femoral and popliteal arteries. Decreased velocities are seen within the peroneal artery. Velocities are otherwise within normal range. Monophasic waveforms are seen within the deep femoral and peroneal arteries. Waveforms are otherwise triphasic with spectral broadening. Impression: No aneurysm or occlusion. Abnormal velocities and waveforms, detailed above. Monophasic waveforms equates to a 50-99% in diameter reduction. Triphasic waveforms with spectral broadening equates to a 1-49% in diameter reduction. This document has been electronically signed by: Aimee Pablo MD on 12/19/2024 19:57:03
--- OUTSIDE RECORDS SUMMARY | 2024-12-18 16:41 | XMS_ITS | Encounter Summary ---
Author Organization [employer] Address [address] [facility] 7t [place] [address] Care Team Providers Care Bobbin Stripper Name Role Phone Aruna Mcneill MD Primary Care Provider [phone] Kwasi Galeano PharmD Unavailable [phone] Encounter Details Date Type Department Care Team (Latest Contact Info) Description 12/17/2024 Travel Social History Tobacco Use Types Packs/Day Years [...] Care Team (Late st Contact Info) Description 12/25/2024 1:30 PM EDT Clinical Support [address] [address] 02/06/2025 9:30 AM EDT Office Visit [address] [address] Aruna Mcneill MD [address] [place] [phone] 03/15/2025 9:30 AM EDT Medication Management [address] [address] Kwasi Galeano PharmD [address] [place] [address] 12/10/2025 1:30 PM EDT Medication Management [address] [address] Kwasi Galeano, PharmD [address] [place] [address] documented as of this encounter Goals Goal Patient Goal Type Associated Problems Recent Progress Patient-Stated? Author Blood Pressure < 140/90 Blood Pressure 130/76(2024 9:43 AM EDT) No Kwasi Galeano, PharmCharla Hemoglobin A1c < 7 Result Component 9.1( 10:17 AM EDT) No Kwasi Galeano, PharmD documented as of this encounter Visit Diagnoses Not on filedocumented in this encounter Additional Health Concerns Assessment Noted Time PHQ-9 Depression Total Score: 15 025 5:40 PM EDT documented as of this encounter Care Teams Bobbin Stripper Relationship Specialty Start Date End Date Aruna Mcneill MD [address] [place] [address] PCP - General Family Medicine 09/01/23 Kwasi Galeano, PharmD [address] [place] [address] Pharmacist Internal Medicine 11/25/23 documented as of this encounter
== END 2024-12-18 13:58 | disposition home or self-care (01) ==
LOC: HO.US 13:57
PROVIDERS: PCP Family Medicine; Visit Provider Surgery Vascular Surgery
DX: I99.8 Other disorder of circulatory system (principal); M79.604 Pain in right leg; M79.605 Pain in left leg
CPT/HCPCS: 93922; 93925

== ENCOUNTER → 2024-12-18 14:00 | Outpatient (BNV) | payer MEDICAID, SELFPAY | PROVIDERS: PCP Family Medicine; Visit Provider Radiology Diagnostic Radiology | DX: I70.213 Atherosclerosis of native arteries of extremities with intermittent claudication, bilateral legs (principal) | CPT/HCPCS: 93922; 93925 ==

== ENCOUNTER 2025-01-25 14:54 | Outpatient (REF) | payer MEDICAID, SELFPAY ==
--- NOTE | ~2025-01-25 | CT_ITS ---
EXAMINATION: CT LUNG SCREENING HISTORY: F17.210 - Nicotine dependence, cigarettes, uncomplicated TECHNIQUE: Low dose axial images were obtained from the sternal notch to upper abdomen without IV contrast per standard departmental protocol. Sagittal and coronal reformatted images were also obtained and reviewed. One or more of the following techniques was used for dose reduction: Automated exposure control, adjustment of the mA and/or kV according to patient size, use of iterative reconstruction technique. DLP: 60 mGy-cm COMPARISON: Comparison is made with the prior examination dated 01/20/2024. FINDINGS: Lung nodules: There is a punctate calcified granuloma in the right upper lobe (series 4, image 22). No additional pulmonary nodules are identified. Emphysema: mild Coronary Calcification: mild Aortic Arch Calcification: mild Potentially Significant Incidentals : none Additional Chest Findings: There is no pleural or pericardial effusion. No mediastinal or axillary lymphadenopathy is identified. Visualized upper abdomen: The visualized portions of the liver, spleen, and adrenals have an unremarkable unenhanced appearance. CT/CT lung screening IMPRESSION: No suspicious pulmonary nodules are identified. LUNG-RADS ASSESSMENT: Lung-RADS 2: Benign MANAGEMENT: Continue annual screening with LDCT in 12 months Category S: N/A Electronically signed by: Huey Medina MD 01/25/2025 03:29 PM EDT
--- OUTSIDE RECORDS SUMMARY | 2025-01-25 14:56 | XMS_ITS | Encounter Summary ---
Author Organization [employer] Address [address] [place] [address] Care Team Providers Care Qa Specialist Name Role Phone Aruna Mcneill MD Primary Care Provider [phone] Kwasi Galeano PharmD Unavailable [phone] Reason for Referral * Consultation (Routine) - Pending Review Specialty Diagnoses / Procedures Referred By Contac t Referred To Contact Pharmacy Diagnoses Essential hypertension Yara Mahan MD [address] [place] [phone] Phone: tel: fax: Referral ID Status Reason Start Date Expiration Date Visits Requested Visits Authorized [id number] Pending Review Continuity of Care 10/18/2024 10/18/2025 6 6 Encounter Details Date Type Department Care Team (Late st Contact Info) Description 10/18/2024 Orders Only [facility] [address] [place] [address] [phone] Yara Mahan MD [address] [place] [address] [phone] Essential hypertension (Primary Dx) Social History Tobacco [...] Care Team (Late st Contact Info) Description 02/01/2025 11:00 AM EDT Clinical Support [address] [address] 03/12/2025 11:30 AM EDT Office Visit [facility] [address] [place] [address] Aruna Mcneill MD [address] [place] [address] 03/15/2025 9:30 AM EDT Medication Management [facility] [address] [place] [address] Kwasi Galeano, PharmD [address] [place] [address] 12/10/2025 1:30 PM EDT Medication Management [facility] [address] [place] [address] Kwasi Galeano PharmD [address] [place] [address] Scheduled Referrals Name Type Priority Associated Diagnoses Orde r Schedule Referral to Pharmacy MTM Outpatient Referral Routine Essential hypertension Ordered: 10/18/2024 documented as of this encounter Goals Goal Patient Goal Type Associated Problems Recent Progress Patient-Stated? Author Blood Pressure < 140/90 Blood Pressure 130/76(2024 9:43 AM EDT) No Kwasi Galeano PharmD Hemoglobin A1c < 7 Result Component 9.1( 10:17 AM EDT) No Kwasi Galeano PharmD documented as of this encounter Visit Diagnoses Diagnosis Essential hypertension- Primary Unspecified essential hypertension documented in this encounter Additional Health Concerns Assessment Noted Time PHQ-9 Depression Total Score: 17 025 1:01 PM EST documented as of this encounter Care Teams Qa Specialist Relationship Specialty Start Date End Date Aruna Mcneill MD [address] [place] [address] PCP - General Family Medicine 09/01/23 Kwasi Galeano PharmD [address] [place] [address] Pharmacist Internal Medicine 11/25/23 documented as of this encounter
== END 2025-01-25 14:55 | disposition home or self-care (01) ==
LOC: HO.CT 14:54
PROVIDERS: PCP Family Medicine; Visit Provider Physician Assistant Medical
DX: Z12.2 Encounter for screening for malignant neoplasm of respiratory organs (principal); F17.210 Nicotine dependence, cigarettes, uncomplicated
CPT/HCPCS: 71271

== ENCOUNTER → 2025-01-25 14:56 | Outpatient (BNV) | payer MEDICAID, SELFPAY | PROVIDERS: PCP Family Medicine; Visit Provider Radiology Diagnostic Radiology | DX: Z12.2 Encounter for screening for malignant neoplasm of respiratory organs (principal); F17.210 Nicotine dependence, cigarettes, uncomplicated | CPT/HCPCS: 71271 ==

== ENCOUNTER 2025-02-04 08:15 | Outpatient (REF) | payer MEDICAID, SELFPAY ==
--- OUTSIDE RECORDS SUMMARY | 2025-02-04 08:23 | XMS_ITS | Encounter Summary ---
Author Organization [employer] Address [address] [place] [address] Care Team Providers Care Divorce Mediator Name Role Phone Aruna Mcneill MD Primary Care Provider [phone] Kwasi Galeano PharmD Unavailable [phone] Reason for Referral * Consultation (Routine) - Pending Review Specialty Diagnoses / Procedures Referred By Contac t Referred To Contact Pharmacy Diagnoses Essential hypertension Yara Mahan MD [address] [place] [address] Phone: tel: fax: Referral ID Status Reason Start Date Expiration Date Visits Requested Visits Authorized [id number] Pending Review Continuity of Care 10/18/2024 10/18/2025 6 6 Encounter Details Date Type Department Care Team (Late st Contact Info) Description 10/18/2024 Orders Only [facility] [address] [place] [address] [phone] Yara Mahan MD [address] [place] [address] [phone] Essential hypertension (Primary Dx) Social History Tobacco [...] Care Team (Late st Contact Info) Description 03/04/2025 10:30 AM EDT Clinical Support [address] [address] 03/12/2025 11:30 AM EDT Office Visit [facility] [address] [place] [phone] Aruna Mcneill MD [address] [place] [address] 03/15/2025 9:30 AM EDT Medication Management [facility] [address] [place] [address] Kwasi Galeano, PharmD [address] [place] [address] 12/10/2025 1:30 PM EDT Medication Management [facility] [address] [place] [address] Kwasi Galeano PharmD [address] [place] [address] Scheduled Referrals Name Type Priority Associated Diagnoses [...] documented as of this encounter Care Teams Divorce Mediator Relationship Specialty Start Date End Date Aruna Mcneill MD [address] [place] [address] PCP - General Family Medicine 09/01/23 Kwasi Galeano PharmD [address] [place] [address] Pharmacist Internal Medicine 11/25/23 documented as of this encounter
[2025-02-07 22:48] LABS: Testosterone, Free 38.5 pg/mL (35.0-155.0)
== END 2025-02-04 08:16 | disposition home or self-care (01) ==
LOC: HO.LAB 08:15
PROVIDERS: PCP Family Medicine; Visit Provider Urology
DX: E29.1 Testicular hypofunction (principal)
CPT/HCPCS: 36415; 84402; 84403

== ENCOUNTER 2025-02-15 09:15 | Outpatient (AMB) | payer MEDICAID, SELFPAY ==
--- NOTE | 2025-02-15 09:16 | A.OFFVIS_ITS ---
Intake Visit Reasons: 3m/labs Intake Note: Patient is present for 3M//TESTO Urology Medication:TADALAFIL,SILDENAFIL,testosterone Antibiotic Allergy:EMPAGLIFLOZIN Blood Thinner:ASPIRIN laBS DONE: total testosterone: 292, Fr testosterone : 38.5 Geotechnical Laboratory Technician Required: No Accompanied by: Self / Same As Patient Allergies empagliflozin (From Jardiance) Adverse Reaction (Intermediate, Verified 02/15/25 09:17) Rash HPI Comments Details: Jesus is a pleasant male. He is a patient of . Seen for following urologic conditions - phimosis - erectile dysfunction - hypogonadism Zimbabwean translation provided in office by qualified medical reimbursement specialist Telemedicine Evaluation 15 min Consultation Doximity [place] Video Zimbabwean translation provided by qualified medical reimbursement specialist Three-month follow-up trial testosterone gel Only received medication 3 weeks ago Discussed application 2 pumps and to massage and the skin until dry Is on GLP 1 Remains on 10 mg daily tadalafil Hypogonadism Low, low normal on multiple occasions Labs - T 12/01 253, 08/04 320, 02/01 300 Phimosis Ongoing Narrowing ring on foreskin Background diabetes Circumcision performed 01/29 Erectile dysfunction with borderline low testosterone Progressive Unable to obtain and maintain erection Current therapy 10 mg daily tadalafil Concurrent diagnosis diabetes with high-intensity lipid management, multi agent diabetic management 11/30 T 323, 12/01 253, 08/04 T 340 P 0.56 PFSH Medical History CAD (coronary artery disease) On anticoagulant therapy H/O myocardial infarction, greater than 8 weeks (~05/2019) HTN (hypertension) Elevated cholesterol Diabetes type 2, uncontrolled 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 Sleep apnea Nicotine dependence, cigarettes, uncomplicated Enlarged prostate Tubular adenoma Obesity due to excess calories Proteinuria COVID-19 vaccine series completed Surgical History History of heart artery stent History of laparoscopic cholecystectomy History of incisional hernia repair History of circumcision History of colonoscopy Family History Mother Diabetes Father HTN (hypertension) Diabetes Maternal Grandmother Diabetes Maternal Grandfather Diabetes Family/Other Diabetes Family/Other Acute renal failure on dialysis Social History Household Members: Spouse, Family, Children and Other Are you a primary child care coordinator to a significant other at home: No Do you presently have visiting nurse or other home services: No Alcohol intake: current Alcohol intake frequency: holidays/special occasions only Patient Tobacco Use Status: Current everyday Tobacco user Tobacco use type: Cigarette Cigarettes Per Day: 10 Years Smoked: (onset 19yo, 1/2-1ppd x 44yrs, 30+PYH) Review of Systems Const All systems reviewed & are unremarkable except as noted in HPI and below Reports no additional complaints Resp Reports no additional complaints GI Reports no additional complaints Reports as per HPI Musc Reports no additional complaints Physical Exam Telemedicine evaluation Appropriate responses Regular breathing rate and rhythm HEENT Head: Yes normal to inspection Ears: hearing grossly normal bilaterally Eyes General: appearance normal, both eyes and all related structures Neck Neck: Yes normal visual inspection Chest Chest palpation & inspection: normal inspection of the chest Resp Effort & Inspection: normal respiratory effort and able to speak in complete sentences Telehealth Telehealth Telehealth Platform: [employer] Location of provider rendering services: practice address Location of patient: address on file Patient Identification confirmed using: Name, : Yes Telehealth method: video Patient verbally consented to treatment: Yes Patient verbally consented to billing insurance company: Yes Patient informed of any privacy concerns related to visit: Yes Minutes spent on Phone/Video with Pt.: 15 Assessment & Plan Assessment & Plan (1) Erectile dysfunction associated with type 2 diabetes mellitus: Code(s): E11.69 - Type 2 diabetes mellitus with other specified complication; N52.1 - Erectile dysfunction due to diseases classified elsewhere Category: Medical (2) Hypogonadism in male: Code(s): E29.1 - Testicular hypofunction Category: Medical Plan Three-month follow-up testosterone Orders: Orders Testosterone, Total 3 Months E29.1 - Testicular hypofunction Patient Instructions: This note is constructed using voice recognition software. While every effort has been made to ensure accuracy driver/guide errors may have been included. Imaging studies, laboratory and physical exam results were discussed and reviewed in detail. No major barriers to patient understanding were identified. An opportunity to ask questions regarding the treatment plan was provided. All questions were answered. The patient expressed understanding and agreement with the above treatment plan. The patient is aware they should contact our office by phone for worsening of their current condition or the appearance of new urologic symptoms. Compliance is encouraged with any medications and followup testing that is ordered. It is a privilege to participate in the urologic care of your patient. If you have any questions or concerns regarding treatment for the above conditions, or other urologic issues, please do not hesitate to contact me. The office telephone contact is [phone]. Sincerely, Dr Kaiden Hernández MD, [facility] - Urology Compassionate Specialist Care for the Genitourinary System Coding Level of Care Code Tele Est Pt Level 3 (92588) Complex EM visit Add On G2211 Diagnoses Erectile dysfunction associated with type 2 diabetes mellitus E11.69; N52.1 Hypogonadism in male E29.1
--- OUTSIDE RECORDS SUMMARY | 2025-02-15 09:22 | XMS_ITS | Encounter Summary ---
Author Organization [employer] Address [address] [place] [address] Care Team Providers Care Chair Frame Builder Name Role Phone Aruna Mcneill MD Primary Care Provider [phone] Kwasi Galeano PharmD Unavailable [phone] Reason for Referral * Consultation (Routine) - Pending Review Specialty Diagnoses / Procedures Referred By Contac t Referred To Contact Pharmacy Diagnoses Essential hypertension Yara Mahan MD [address] [place] [address] Phone: tel: fax: Referral ID Status Reason Start Date Expiration Date Visits Requested Visits Authorized [id number] Pending Review Continuity of Care 10/18/2024 10/18/2025 6 6 Encounter Details Date Type Department Care Team (Late st Contact Info) Description 10/18/2024 Orders Only [facility] [address] [place] [address] [phone] Yara Mahan MD [address] [place] [address] [phone] Essential hypertension (Primary Dx) Social History Tobacco [...] Description 03/04/2025 10:30 AM EDT Clinical Support [address] [address] 03/12/2025 11:30 AM EDT Office Visit [facility] [address] [place] [address] Aruna Mcneill MD [address] [place] [address] 03/15/2025 9:30 AM EDT Medication Management [facility] [address] [place] [address] Kwasi Galeano, PharmD [address] [place] [address] 12/10/2025 1:30 PM EDT Medication Management [facility] [address] [place] [address] Kwasi Galeano PharmD [address] [place] [address] Scheduled Referrals Name Type Priority Associated Diagnoses [...] documented as of this encounter Care Teams Chair Frame Builder Relationship Specialty Start Date End Date Aruna Mcneill MD [address] [place] [address] PCP - General Family Medicine 09/01/23 Kwasi Galeano PharmD [address] [place] [address] Pharmacist Internal Medicine 11/25/23 documented as of this encounter
== END 2025-02-15 10:37 | disposition home or self-care (01) ==
LOC: HO.HUSH 09:15
PROVIDERS: PCP Family Medicine; Visit Provider Urology
DX: E11.69 Type 2 diabetes mellitus with other specified complication (principal); N52.1 Erectile dysfunction due to diseases classified elsewhere; E29.1 Testicular hypofunction
CPT/HCPCS: 99213

== ENCOUNTER 2025-05-08 08:07 | Outpatient (REF) | payer MEDICAID, SELFPAY ==
--- OUTSIDE RECORDS SUMMARY | 2025-05-08 08:19 | XMS_ITS | Encounter Summary ---
Author Organization [facility] [employer] Address [address] [place] [address] Care Team Providers Care Yard Switcher Name Role Phone Aruna Mcneill MD Primary Care Provider [phone] Kwasi Galeano PharmD Unavailable [phone] Reason for Referral * Consultation (Routine) - Pending Review Specialty Diagnoses / Procedures Referred By Contac t Referred To Contact Pharmacy Diagnoses Essential hypertension Type 2 diabetes mellitus with hyperglycemia, without long-term current use of insulin ([facility]) Aruna Mcneill MD [address] [place] [address] Phone: tel: fax: Referral ID Status Reason Start Date Expiration Date Visits Requested Visits Authorized [id number] Pending Review Consult and Treat 10/12/2024 10/12/2025 6 6 Encounter Details Date Type Department Care Team (Late st Contact Info) Description 10/12/2024 Orders Only [facility] [address] [place] [address] Aruna Mcneill MD [address] [place] [address] [phone] Essential hypertension (Primary Dx); Type 2 diabetes mellitus with hyperglycemia, without long-term current use of insulin ([facility]) Social History Tobacco Use [...] Care Team (Late st Contact Info) Description 05/20/2025 9:00 AM EST Medication Management [facility] [address] [place] [address] Kwasi Galeano, PharmD [address] [place] [address] 12/10/2025 1:30 PM EDT Medication Management [facility] [address] [place] [address] Kwasi Galeano, PharmD [address] [place] [address] Scheduled Referrals Name Type Priority Associated Diagnoses Orde r Schedule Referral to Pharmacy CDTM Outpatient Referral Routine Essential hypertension Type 2 diabetes mellitus with hyperglycemia, without long-term current use of insulin ([facility]) Ordered: 10/12/2024 documented as of this encounter Goals Goal Patient Goal Type Associated Problems Recent Progress Patient-Stated? Author Blood Pressure < 140/90 Blood Pressure 110/80(2024 10:15 AM EDT) No Kwasi Galeano PharmD Hemoglobin A1c < 7 Result Component 7.8( 11:02 AM EDT) No Kwasi Galeano PharmD documented as of this encounter Visit Diagnoses Diagnosis Essential hypertension- Primary Unspecified essential hypertension Type 2 diabetes mellitus with hyperglycemia, without long-term current use of insulin ([facility]) documented in this encounter Additional Health Concerns Assessment Noted Time PHQ-9 Depression Total Score: 17 08/07/ 025 1:01 PM EST documented as of this encounter Care Teams Yard Switcher Relationship Specialty Start Date End Date Aruna Mcneill MD [address] [place] [address] PCP - General Family Medicine 09/01/23 Kwasi Galeano, Tung [address] [place] [address] Pharmacist Internal Medicine 11/25/23 documented as of this encounter
--- OUTSIDE RECORDS SUMMARY | 2025-05-08 08:19 | XMS_ITS | Encounter Summary ---
Author Organization [employer] Address [address] [place] [address] Care Team Providers Care Dean Of Students Name Role Phone Aruna Mcneill MD Primary Care Provider [phone] Kwasi Galeano PharmD Unavailable [phone] Encounter Details Date Type Department Care Team ([facility] st Contact Info) Description 11/01/2023 Orders Only [facility] [address] [place], [place] [phone] Aruna Mcneill MD [address] [place] [address] Hyperlipidemia, unspecified hyperlipidemia type Social History Tobacco [...] Description 05/20/2025 9:00 AM EST Medication Management [address] [address] Kwasi Galeano, PharmD [address] [place] [address] 12/10/2025 1:30 PM EDT Medication Management [address] [address] Kwasi Galeano, PharmD [address] [place] [address] documented as of this encounter Visit Diagnoses Diagnosis Hyperlipidemia, unspecified hyperlipidemia type documented in this encounter Additional Health Concerns Assessment Noted Time PHQ-9 Depression Total Score: 14 023 10:35 AM EST documented as of this encounter Care Teams Dean Of Students Relationship Specialty Start Date End Date Aruna Mcneill MD [address] [place] [address] PCP - General Family Medicine 09/01/23 Kwasi Galeano, ChinoD [address] [place] [address] Pharmacist Internal Medicine 11/25/23 documented as of this encounter
--- OUTSIDE RECORDS SUMMARY | 2025-05-08 08:19 | XMS_ITS | Encounter Summary ---
Author Organization [employer] Address [address] [place] [address] Care Team Providers Care Music Department Chair Name Role Phone Ayan Gilbert Primary Care Provider Unavail able Hellen Phillip Primary Care Provider [phone] Aruna Mcneill MD Primary Care Provider [phone] Kwasi Galeano PharmD Unavailable [phone] Encounter Details Date Type Department Care Team ([facility] Contact Info) Description 06/14/2022 Orders Only [facility] [address] [place] [address] Mariano Guan MD [address] [place] [address] Type 2 diabetes mellitus without complication, without long-term current use of insulin ([facility]) (Primary Dx) Social History Tobacco Use [...] Upcoming Encounters Date Type Department Care Team ([facility] Contact Info) Description 05/20/2025 9:00 AM EST Medication Management [address] [address] Kwasi Galeano, PharmCharla [address] [place] [address] 12/10/2025 1:30 PM EDT Medication Management [address] [address] Kwasi Galeano, PharmD [address] [place] [address] documented as of this encounter Visit Diagnoses Diagnosis Type 2 diabetes mellitus without complication, without long-term current use of insulin (HCC)- Primary documented in this encounter Additional Health Concerns Assessment Noted Time PHQ-9 Depression Total Score: 22 022 11:07 AM EST documented as of this encounter Care Teams Music Department Chair Relationship Specialty Start Date End Date Ayan Gilbert AGNP PCP - General Family Medicine 06/08/22 03/30/23 Hellen Phillip ANP [address] [place] [address] PCP - General Family Medicine 03/31/23 08/31/23 Aruna Mcneill MD [address] [place] [address] PCP - General Family Medicine 09/01/23 Kwasi Galeano, PharmD [address] [place] [address] Pharmacist Internal Medicine 11/25/23 documented as of this encounter
--- OUTSIDE RECORDS SUMMARY | 2025-05-08 08:19 | XMS_ITS | Encounter Summary ---
Author Organization [employer] Address [address] [place] [address] Care Team Providers Care Mess Attendant Crew Name Role Phone Ayan Gilbert CONRAD Primary Care Provider Unavail able Hellen Phillip Primary Care Provider [phone] Aruna Mcneill MD Primary Care Provider [phone] Kwasi Galeano PharmD Unavailable [phone] Encounter Details Date Type Department Care Team ([facility] Contact Info) Description 06/14/2022 Orders Only [facility] [address] [place] [address] Kwasi Galeano, PharmD [address] [place], [place] [phone] Social History Tobacco Use Types Packs/Day Years [...] Encounters Date Type Department Care Team (Late Contact Info) Description 05/20/2025 9:00 AM EST Medication Management [facility] [address] [place] [address] Kwasi Galeano, PharmD [address] [place] [address] 12/10/2025 1:30 PM EDT Medication Management [facility] [address] [place] [address] Kwasi Galeano, PharmD [address] [place] [address] documented as of this encounter Visit Diagnoses Not on filedocumented in this encounter Additional Health Concerns Assessment Noted Time PHQ-9 Depression Total Score: 022 11:07 AM EST documented as of this encounter Care Teams Mess Attendant Crew Relationship Specialty Start Date End Date Ayan Gilbert AGNP PCP - General Family Medicine 06/08/22 03/30/23 Hellen Phillip ANP [address] [place] [address] PCP - General Family Medicine 03/31/23 08/31/23 Aruna Mcneill MD [address] [place] [address] PCP - General Family Medicine 09/01/23 Kwasi Galeano, PharmD [address] [place] [address] Pharmacist Internal Medicine 11/25/23 documented as of this encounter
--- OUTSIDE RECORDS SUMMARY | 2025-05-08 08:19 | XMS_ITS | Encounter Summary ---
Author Organization [employer] Address [address] [place] [address] Care Team Providers Care Radiation Oncology Therapist Name Role Phone Aruna Mcneill MD Primary Care Provider [phone] Kwasi Galeano PharmD Unavailable Reason for Referral * Consultation (Routine) - Canceled Specialty Diagnoses / Procedures Referred By Contac t Referred To Contact Pharmacy Diagnoses Type 2 diabetes mellitus with hyperglycemia, without long-term current use of insulin (HCC) Essential hypertension Aruna Mcneill MD [address] [place] [address] Phone: tel: fax: Referral ID Status Reason Start Date Expiration Date V isits Requested Visits Authorized [id number] Canceled Consult and Treat 05/22/2024 05/22/2025 6 6 Encounter Details Date Type Department Care Team (Late st Contact Info) Description 05/22/2024 Orders Only [facility] [address] [place] [address] Aruna Mcneill MD [address] [place] [address] [phone] Type 2 diabetes mellitus with hyperglycemia, without [...] Description 05/20/2025 9:00 AM EST Medication Management [address] [address] Kwasi Galeano, PharmD [address] [place] [address] 12/10/2025 1:30 PM EDT Medication Management [address] [address] Kwasi Galeano, ChinoD [address] [place] [address] Scheduled Referrals Name Type Priority Associated Diagnoses Orde r Schedule Referral to Pharmacy CDTM Outpatient Referral Routine Type 2 diabetes mellitus with hyperglycemia, without long-term current use of insulin ([facility]) Essential hypertension Ordered: 05/22/2024 documented as of [...] hyperglycemia, without long-term current use of insulin ([facility])- Primary Essential hypertension Unspecified essential hypertension documented in this encounter Additional Health Concerns Assessment Noted Time PHQ-9 Depression Total Score: 14 023 10:35 AM EST documented as of this encounter Care Teams Radiation Oncology Therapist Relationship Specialty Start Date End Date Aruna Mcneill MD [address] [place] [address] PCP - General Family Medicine 09/01/23 Kwasi Galeano PharmD [address] [place] [address] Pharmacist Internal Medicine 11/25/23 documented as of this encounter
--- OUTSIDE RECORDS SUMMARY | 2025-05-08 08:19 | XMS_ITS | Encounter Summary ---
Author Organization [employer] Address [address] [place] [address] Care Team Providers Care Package Checker Name Role Phone Ayan Gilbert Primary Care Provider Unavail able Hellen Phillip Primary Care Provider [phone] Aruna Mcneill MD Primary Care Provider [phone] Kwasi Galeano PharmD Unavailable [phone] Encounter Details Date Type Department Care Team ([facility] Contact Info) Description 06/14/2022 Orders Only [facility] [address] [place] [address] Odilon Lynch RN [address] [place], [place] [phone] Social History Tobacco Use Types Packs/Day Years [...] Description 05/20/2025 9:00 AM EST Medication Management [facility] [address] [place] [address] Kwasi Galeano, PharmD [address] [facility] [address] 12/10/2025 1:30 PM EDT Medication Management [facility] [address] [place] [address] Kwasi Galeano, PharmD [address] [place] [address] documented as of this encounter Visit Diagnoses Not on filedocumented in this encounter Additional Health Concerns Assessment Noted Time PHQ-9 Depression Total Score: 22 022 11:07 AM EST documented as of this encounter Care Teams Package Checker Relationship Specialty Start Date End Date Ayan Gilbert AGNP PCP - General Family Medicine 06/08/22 03/30/23 Hellen Phillip ANP [address] [place] [address] PCP - General Family Medicine 03/31/23 08/31/23 Aruna Mcneill MD [address] [place] [address] PCP - General Family Medicine 09/01/23 Kwasi Galeano, PharmD [address] [place] [address] [phone] Pharmacist Internal Medicine 11/25/23 documented as of this encounter
--- OUTSIDE RECORDS SUMMARY | 2025-05-08 08:19 | XMS_ITS | Encounter Summary ---
Author Organization [employer] Address [address] [place] [address] Care Team Providers Care Refinery Operator Helper Crude Unit Name Role Phone Aruna Mcneill MD Primary Care Provider [phone] Kwasi Galeano PharmD Unavailable [phone] Reason for Referral * Consultation (Routine) - Pending Review Specialty Diagnoses / Procedures Referred By Contac t Referred To Contact Pharmacy Diagnoses Essential hypertension Yara Mahan MD [address] [place] [address] Phone: tel: fax: Referral ID Status Reason Start Date Expiration Date Visits Requested Visits Authorized [id number] Pending Review Continuity of Care 10/18/2024 10/18/2025 6 6 Encounter Details Date Type Department Care Team (Late st Contact Info) Description 10/18/2024 Orders Only [facility] [address] [place] [address] [phone] Yara Mahan MD [address] [place] [address] [phone] Essential hypertension (Primary Dx) Social History Tobacco [...] Description 05/20/2025 9:00 AM EST Medication Management [address] [address] Kwasi Galeano, PharmD [address] [place] [address] 12/10/2025 1:30 PM EDT Medication Management [address] [address] Kwasi Galeano, PharmD [address] [place] [address] Scheduled Referrals Name Type Priority Associated Diagnoses [...] documented as of this encounter Care Teams Refinery Operator Helper Crude Unit Relationship Specialty Start Date End Date Aruna Mcneill MD [address] [place] [address] PCP - General Family Medicine 09/01/23 Kwasi Galeano PharmD [address] [place] [address] Pharmacist Internal Medicine 11/25/23 documented as of this encounter
--- OUTSIDE RECORDS SUMMARY | 2025-05-08 08:19 | XMS_ITS | Clinical Summary ---
Author Organization [employer] Address [address] [place] [address] Care Team Providers Care Fertilizer Applicator Name Role Phone Aruna Mcneill MD Primary Care Provider [phone] Kwasi Galeano PharmD Unavailable [phone] Allergies Active Allergy Reactions Criticality Noted Date Comments Empagliflozin Rash Low 09/22/2021 Metformin 09/22/2021 Other reaction(s): Abdominal discomfort Medications * This document contains information received from the source organization and may not represent a complete record from that organization. aspirin 81 MG EC tablet Take 1 [...] and as needed when you feel sick. Turkmen label 1 kit 10/31/19 24 Active nitroglycerin (Nitrostat) 0.4 MG SL tablet DISSOLVE 1 TABLET UNDER THE TONGUE EVERY 5 MINUTES NEEDED FOR CHEST PAIN. CALL 911 IF NO RELIEF 09/29/19 24 Active FREESTYLE LITE test stripIndications :Type 2 diabetes mellitus without complications (HCC) TEST BLOOD SUGAR THREE TIMES DAILY 100 strip 11 08/15/19 25 Active dapagliflozin (Farxiga) 10 MGIndications:Ty pe 2 diabetes mellitus with hyperglycemia, without long-term current use of insulin (HCC) Take 1 tablet (10 mg) by mouth Once per day. 90 tablet 3 08/20/19 25 Active cholecalciferol (Vitamin D-3) 25 MCG (1000 UT) tabletIndication s:Vitamin D Deficiency Take 1 tablet (25 mcg) by mouth Once per day. 90 tablet 3 10/27/19 25 2025 Active clotrimazole (Lotrimin) 1 % cream Apply topically 2 times daily. To feet / between toes 60 g 3 11/07/19 25 Active Alcohol Swabs (Alcohol Prep) 70 % padsIndications: Type 2 diabetes mellitus without complications (HCC) USE DIRECTED THREE TIMES DAILY 100 each 11/13/19 25 Active TRUEplus Lancets 33G miscIndications: Type 2 diabetes mellitus without complications (HCC) USE DIRECTED TO TEST BLOOD SUGAR THREE TIMES DAILY 100 each 11/13/19 25 Active cyanocobalamin (Vitamin B-12) 1000 MCG/ML injection Administer 1000 mcg IM weekly for 4 weeks, then monthly 4 mL 12/12/19 25 Active metoprolol succinate XL (Toprol-XL) 50 MG 24 hr tabletIndication s:Essential hypertension Take 1 tablet by mouth every morning 90 tablet 1 02/02/20 25 Active magnesium oxide (Mag-Ox) 400 MG tabletIndication s:Migraine without aura, not intractable, without status migrainosus Take 1 tablet (400 mg) by mouth in the morning. 90 tablet 3 02/02/20 25 Active lisinopril-hydro CHLOROthiazide 20-12.5 MG tablet Take 2 tablets by mouth Once per day. 180 tablet 1 02/29/20 25 Active Tirzepatide (Mounjaro) 5 MG/0.5ML solution auto-injectorInd ications:Type 2 diabetes mellitus with hyperglycemia, without long-term current use of insulin (HCC) Inject 5 mg under the skin 1 (one) time per week. 2 mL 3 03/22/20 25 Active Varenicline Tartrate, Starter, 0.5 MG X 11 & 1 MG X 42 tablet therapy packIndications: Tobacco dependence Take 0.5 mg by mouth Once per day for 3 days, THEN 0.5 mg 2 times daily for 4 days, THEN 1 mg 2 times daily for 21 days. 53 each 03/22/20 25 Active Icosapent Ethyl (Vascepa) 1 g capsule Take 2 capsules (2 g) by mouth with breakfast and with evening meal. 120 capsule 11 04/18/20 Active metoprolol succinate XL (Toprol XL) 25 MG 24 hr tablet Take 1 tablet (25 mg) by mouth Once per day. Do not crush or chew. 90 tablet 3 04/22/20 25 2025 Active Icosapent Ethyl (Vascepa) 1 g capsule Take 1 capsule (1 g) by mouth with breakfast and with evening meal. 60 capsule 11 12/18/19 25 2024 Discontinued(R eorder (will not trigger notification to Pharmacy)) Hospital, Clinic, or Other Facility Administered Medication Ordered Dose Route Frequency Start Date End Date Status cyanocobalamin (Vitamin B-12) injection 1,000 mcgIndications:Vitamin B12 deficiency 1000 mcg IM Weekly 12/25/2024 Active Active Problems Problem Noted Date Diagnosed Date Lower urinary tract symptoms (LUTS) 05/03/2025 Assessment & Plan (05/03/2025 10:43 AM EDT): - Last PSA 0.65 on 10/14/2023 - Following with Dr. Hernández, [facility] urology - Referred to another urology service for second opinion per patient's request Hypogonadism in male 05/03/2025 Assessment & Plan (05/03/2025 10:42 AM EDT): - Currently following with Dr. Hernández at [facility] Urology - Prescribed testosterone gel Moderate major depression (CMS/HCC) 01/23/2025 Assessment & Plan (05/03/2025 10:48 AM EDT): - Current [facility] provider: Will - Patient declined pharmacological treatment LOVE (generalized anxiety disorder) 01/23/2025 Memory problem 12/11/2024 Assessment & Plan (12/27/2024 5:52 AM EDT): - Pt has anxiety and depression, possible pseudo-dementia - Pt vitamin b12 is low, Will replenish with IM treatment - Will schedule for MOCA to assess dementia - Clock drawing and pentagon drawing were normal - Strong family history of Alzheimer disease, including both parents and sister - Will consider evaluating with MRI if his MOCA suggests dementia and/or B12 does not improve his symptoms - Referred to Neurologist Vitamin B12 deficiency 12/11/2024 Assessment & Plan (12/11/2024 5:01 PM EDT): - Pt prefers injection to oral medication - Will start Vitamin B12 IM 1000 mcg weekly times 4 dose, then monthly Anxiety and depression 12/11/2024 Assessment & Plan (05/03/2025 10:47 AM EDT): - Pt declines pharmacological treatment - Current [facility] provider: [facility] Assessment & Plan (12/11/2024 5:06 PM EDT): - Pt declines pharmacological treatment - Pt agrees to try behavioral health - Behavioral health referral Pain in both lower extremities 11/06/2024 Assessment & Plan (11/06/2024 10:50 AM EDT): - possible claudication - will evaluate for PAD Tobacco dependence 11/06/2023 Assessment & Plan (05/03/2025 10:49 AM EDT): - smoking > 20 pack years - Lung RADS 2 on 01/25/25 - Continue working on smoking cessation - Continue lung cancer screening annually Assessment & Plan (11/06/2024 9:58 AM EDT): - smoking > 20 pack years - refer to lung cancer screening program Assessment & Plan (08/09/2024 8:28 AM EST): - smoking > 20 pack years - refer to lung cancer screening program Assessment & Plan (11/06/2023 12:28 PM EDT): - smoking > 20 pack years - refer to lung cancer screening program Erectile dysfunction 11/06/2023 Assessment & Plan (05/03/2025 10:44 AM EDT): - following with Dr. Hernández, [facility] urology - s/p circumcision and frenulectomy on 02/01/22 for balanitis and phimosis - continue current medication PDE5 inhibitor with caution - Patient request second opinion Assessment & Plan (11/06/2024 9:56 AM EDT): - following with Dr. Hernández, [facility] urology - s/p circumcision and frenulectomy on 02/01/22 for balanitis and phimosis - continue current medication PDE5 inhibitor with caution Assessment & Plan (11/06/2023 12:55 PM EDT): - following with Dr. Hernández, [facility] urology - s/p circumcision and frenulectomy on 02/01/22 for balanitis and phimosis - continue current medication PDE5 inhibitor with caution History of NM (myocardial infarction) 10/30/2023 Mood disorder 09/03/2022 Assessment & Plan (11/06/2024 9:57 AM EDT): - behavioral health service provider: [facility] Jon - will check at next visit if patient is currently connected with [facility] Assessment & Plan (08/09/2024 8:28 AM EST): - behavioral health service provider: [facility] Jon - will check at next visit if patient is currently connected with [facility] Assessment & Plan (11/06/2023 12:29 PM EDT): - behavioral health service provider: [facility] Jon - will check at next visit if patient is currently connected with [facility] Assessment & Plan (09/17/2022 9:04 AM [...] RA Essential hypertension 06/10/2022 Assessment & Plan (05/03/2025 10:50 AM EDT): -Goal BP < 140/90 per JNC-8 and < 130/80 per ACC/AHA guideline (Treatment threshold >=130/80) -BP not at goal, questionable mediation adherence. -Continue working on lifestyle modifications -Recommended self-monitoring BP. -Continue current medications at this time, but will consider decreasing pill burden to improve adherence - Increase metoprolol succinate to 75 mg daily -Continue lisinopril / hctz TWO 20/12.5 mg tablets daily; consider changing to 40/25 mg daily -Treatment Hx: -Follow up in 3 mo, sooner if any problem arises Assessment & Plan (12/11/2024 1:34 PM EDT): -Goal BP < 140/90 per [...] if any problem arises Assessment & Plan (11/06/2024 9:56 AM EDT): -Goal BP < 140/90 per JNC-8 [...] if any problem arises Assessment & Plan (08/12/2024 1:13 PM EST): [...] to discuss his nitroglycerin use with his pack train driver He stated he had an echocardiogram 2 [...] Ischemic heart disease 06/10/2022 Assessment & Plan (04/24/2025 5:17 PM EDT): - pack train driver: ANNIE, last seen in September 2023 - Echo - will obtain from [facility] - last stress test - will obtain from [facility] - continue statin, ACEI, BB, ASA, and clopidogrel. Assessment & Plan (11/06/2024 9:56 AM EDT): - pack train driver: ANNIE, last seen in September 2023 - Echo - will obtain from [facility] - last stress test - will obtain from [facility] - continue statin, ACEI, BB, ASA, and clopidogrel. Assessment & Plan (08/09/2024 8:28 AM EST): [facility] in [facility]23 - Echo - will obtain from [facility] - last stress test [facility] - continue statin, ACEI, BB, ASA, and clopidogrel. Assessment & Plan (11/06/2023 1:01 PM EDT): - pack train driver: [facility], last seen in September 2023 - Echo - will obtain from [facility] - last stress test [facility] - continue statin, ACEI, BB, ASA, and clopidogrel. Neuropathy due to type 2 diabetes mellitus 06/10 Assessment & Plan (11/06/2024 9:55 AM EDT): Improve glycemic control Assessment & Plan (11/06/2023 12:45 PM EDT): Improve glycemic control Assessment & Plan (01/05/2023 9:44 AM EDT): S/P coronary artery stent placement 06/10/2022 Vascular insufficiency 12/23/2021 Obstructive sleep apnea syndrome 06/01/2021 Assessment & Plan (05/03/2025 10:46 AM EDT): - following with [facility] sleep medicine clinic, last seen in December 2022 - sleep study on 02/01/23 AutoPAP 5-20 cm H2O - recommended to check with sleep medicine clinic for CPAP and its coverage - patient has lost weight and may have improved Assessment & Plan (11/06/2024 9:55 AM EDT): - following with [facility] sleep medicine clinic, last seen in December 2022 - sleep study on 02/01/23 AutoPAP 5-20 cm H2O - recommended to check with sleep medicine clinic for CPAP and its coverage - patient has lost weight and may have improved Assessment & Plan (08/09/2024 8:27 AM EST): - following with [facility] sleep medicine clinic, last seen in December 2022 - sleep study on 02/01/23 AutoPAP 5-20 cm H2O - recommended to check with sleep medicine clinic for CPAP and its coverage - patient has lost weight and may have improved Assessment & Plan (11/06/2023 12:50 PM EDT): - following with [facility] sleep medicine clinic, last seen in December 2022 - sleep study on 02/01/23 AutoPAP 5-20 cm H2O - recommended to check with sleep medicine clinic for CPAP and its coverage - patient has lost weight and may have improved Assessment & Plan (10/14/2022 3:43 PM EDT): Did you hear from sleep medicine? Stable angina 06/01/2021 Polyp of colon 03/05/2021 Assessment & Plan (11/11/2024 3:51 PM EDT): - colonoscopy in November 2021. Unable to remove for biopsy because he was still taking clopidogrel. Recommended to repeat after January 2022 because his DAPT could not be interrupted until then - refer back to [facility] GI Abdominal wall hernia 08/30/2017 Hyperlipidemia 08/30/2017 Assessment & Plan (05/03/2025 10:52 AM EDT): - current medication: rosuvastatin 40 mg at bedtime; Icosapent - high-intensity statin therapy is recommended because he has ASCVD. - continue working on lifestyle modifications Assessment & Plan (11/06/2024 9:57 AM EDT): - current medication: rosuvastatin 40 mg at bedtime - high-intensity statin therapy is recommended because he has ASCVD. - continue working on lifestyle modifications Assessment & Plan (08/12/2024 1:11 PM EST): [...] aura, not refractory 08/30/2017 Assessment & Plan (11/06/2024 9:57 AM EDT): - He is uncertain what he is taking for migraine - Continue magnesium and B2 - Patient has been taking Fioricet for acute migraine attack - Consider referring to neurologist, if he has not been seen yet Assessment & Plan (11/06/2023 12:33 PM EDT): [...] 2 diabetes mellitus 08/30/2017 Assessment & Plan (04/24/2025 5:19 PM EDT): A1C 7.8% on 03/22/2025, improved from 8.8% on 12/11/24 Co-managing with our pharmacist Encourage to improve adherence to self-monitoring glucose and medication adherence. Continue working on lifestyle modifications. Increase semaglutide 1 mg weekly, titrate up as tolerated to maximum dose Continue dapagliflozin (Farxiga) Treatment hx: tried repaglinide, which was discontinued because restarting SGLT2i. Intolerance to empagliflozin and metformin. Comprehensive foot exam: 11/06/24 Diabetic eye exam: November 2023 Microalbumin: 08/08/24 Lipid profile: 08/08/24 TRIG 146; CHOL 214; LDL 140; HDL 45 Dental care: [facility] Assessment & Plan (12/11/2024 5:02 PM EDT): A1C 8.8% on 12/11/24, improved from 9.1% on 11/06/24 Co-managing with our pharmacist Encourage to improve adherence to self-monitoring glucose and medication adherence. Continue working on lifestyle modifications. Increase semaglutide 1 mg weekly, titrate up as tolerated to maximum dose Continue dapagliflozin (Farxiga) Treatment hx: tried repaglinide, which was discontinued because restarting SGLT2i. Intolerance to empagliflozin and metformin. Comprehensive foot exam: 11/06/24 Diabetic eye exam: November 2023 Microalbumin: 08/08/24 Lipid profile: 08/08/24 TRIG 146; CHOL 214; LDL 140; HDL 45 Dental care: [facility] Assessment & Plan (11/06/2024 10:54 AM EDT): A1C 9.1% on 11/06/24, improvement from 10% on 08/07/24 Co-managing with our pharmacist Encourage to improve adherence to self-monitoring glucose and medication adherence. Continue working on lifestyle modifications. Increase semaglutide 1 mg weekly, titrate up as tolerated to maximum dose Continue dapagliflozin (Farxiga) Treatment hx: tried repaglinide, which was discontinued because restarting SGLT2i. Intolerance to empagliflozin and metformin. Comprehensive foot exam: 11/06/24 Diabetic eye exam: November 2023 Microalbumin: 08/08/24 Lipid profile: 08/08/24 TRIG 146; CHOL 214; LDL 140; HDL 45 Dental care: [facility] Assessment & Plan (08/12/2024 1:09 PM EST): [...] Microalbumin: 10/31/23 Lipid profile: 10/31/23 Dental care: [facility] Assessment & Plan (11/06/2023 12:45 PM [...] Microalbumin: 10/31/23 Lipid profile: 10/31/23 Dental care: [facility] Assessment & Plan (01/05/2023 12:29 PM [...] prandin and plavix. Received phone call from [facility] pharmacy warning me of this potential interaction. Assessment & Plan (11/16/2022 10:41 AM EDT): Current Outpatient Medications on File Prior to Visit Medication Sig Dispense Refill cholecalciferol (Vitamin D-3) 50 MCG (1999 UT) tablet TAKE 1 TABLET BY MOUTH EVERY MORNING 90 tablet 1 Alcohol Swabs (Alcohol Prep) 70 % pads USE THREE TIMES DAILY aspirin 81 MG EC tablet Take 1 tablet by mouth in the morning. bacitracin 500 UNIT/GM ointment apply topically to skin as needed clopidogrel (Plavix) 75 MG tablet Take 75 mg by mouth in the morning. cyanocobalamin (Vitamin B-12) 1000 MCG tablet Take 1 tablet by mouth at bed time. dulaglutide (Trulicity) 4.5 MG/0.5ML solution pen-injector Inject 4.5 mg under the skin 1 (one) time per week. 4 each 11 ezetimibe (Zetia) 10 MG tablet Take 1 tablet by mouth at bed time. glucose blood (FREESTYLE LITE) test strip every 8 (eight) hours. metoprolol succinate XL (Toprol-XL) 50 MG 24 hr tablet Take 1 tablet by mouth every morning 90 tablet 1 nitroglycerin (Nitrostat) 0.[address] 1 tablet by sublingual route once daily omega-3 acid ethyl esters (Lovaza) 1 g capsule TAKE 2 CAPSULES BY MOUTH TWICE DAILY IN THE MORNING AND EVENING 360 capsule 0 rosuvastatin (Crestor) 40 MG tablet take 1 tablet by oral route Q TRUEplus Lancets 33G [facility] TEST BLOOD SUGAR THREE TIMES DAILY No [...] repaglinide to 1mg tid. F/up: 1 month Resolved Problems Problem Noted Date Diagnosed Date Resolved Date Uncomplicated bereavement 01/23/2025 Encounters Date Type Department Care Team Description 04/22/2025 10:15 AM EDT Office Visit [facility] [address] [place] [phone] Aruna Mcneill MD Essential hypertension (Primary Dx); Ischemic heart disease; Type 2 diabetes mellitus with hyperglycemia, without long-term current use of insulin (HCC); Moderate major depression (CMS/HCC) (HCC); Bilateral hip pain; Chronic bilateral low back pain without sciatica; Encounter for immunization; Vascular insufficiency; Lower urinary tract symptoms (LUTS); Erectile dysfunction, unspecified erectile dysfunction type; Hypogonadism in male; Anxiety and depression; Neuropathy due to type 2 diabetes mellitus (HCC); Obstructive sleep apnea syndrome; Tobacco dependence; Hyperlipidemia, unspecified hyperlipidemia type 04/22/2025 Travel 04/19/2025 Telephone [facility] [address] [place] [address] Aruna Mcneill MD chartprep 04/18/2025 Refill [facility] [address] [place] [address] Kwasi Galeano, Tung Type 2 diabetes mellitus with hyperglycemia, without long-term current use of insulin ([facility]) (Primary Dx) 03/22/2025 Travel 03/12/2025 Telephone [facility] [address] [place] [address] Aruna Mcneill MD No Show 03/04/2025 Telephone [facility] [address] [place] [address] Aruna Mcneill MD No Show 02/28/2025 Refill [facility] [address] [place] [address] Aruna Mcneill MD 02/28/2025 Refill [facility] [address] [place] [address] Aruna Mcneill MD 02/25/2025 Refill [facility] [address] [place] [address] Yara Mahan MD Type 2 diabetes mellitus with hyperglycemia, without long-term current use of insulin ([facility]) 02/13/2025 Outside Procedure [facility] [address] [place] [address] Gertrude Tipton, OD Presbyopia of both eyes (Primary Dx) 02/11/2025 9:30 AM EDT Office Visit [facility] [address] [place] [address] Alphonso Tiptonn, OD Hyperopia of both eyes (Primary Dx) from Last 3 Months Immunizations Immunization Administration Dates Next Due HepB-CpG 09/06/2024,01/19/2024 Influenza Injectable Quadriv alant Preservative Free IIV4 MDCK 04/27/2022,04/22/2020,05/28/2019 Influenza injectable quadriv alent IIV4 with preservative 05/10/2018,08/30/2017 Influenza injectable quadriv alent preservative free 09/19/2023,04/29/2021 Influenza, seasonal, injecta ble, preservative free 04/22/2025,08/07/2024 Moderna Covid-19 Vaccine 12+ 11/23/2021,10/16/19 21,09/17/2020 Moderna Covid-19 Vaccine 6+ Bivalent 07/28/2022 Pfizer Covid-19 Vaccine 12+ 04/22/2025,0 08/07/2024,09/19/2023,05/19 Pneumococcal Conjugate PCV 20 04/27/2022 Pneumococcal Polysaccharide [...] Sign Reading Time Taken Comments Blood Pressure 110/80 04/22/2025 10:15 AM EDT Pulse 100 04/22/2025 10:15 AM EDT Temperature 36.3 C (97.3 F) 04/22/2025 10:15 AM EDT Respiratory Rate 17 04/22/2025 10:15 AM EDT Oxygen Saturation 100% 04/22/2025 10:15 AM EDT Inhaled Oxygen Concentration - - Weight 85 kg (187 lb 6.4 oz) 04/22/2025 10:15 AM EDT Height 162.6 cm (5' 4 ) 04/22/2025 10:15 AM EDT Body Mass Index 32.17 04/22/2025 10:15 AM EDT Plan of Treatment Upcoming Encounters Date Type Department Care Team (Late st Contact Info) Description 05/20/2025 9:00 AM EST Medication Management [facility] [address] [place] [id number] Kwasi Galeano, PharmD [address] [place] [address] 12/10/2025 1:30 PM EDT Medication Management [facility] [address] [place] [id number] Kwasi Galeano, PharmD [address] [place] [address] Health Maintenance Due Date Last Done Comments CT Colonography 1960 FIT DNA/Cologuard 1960 FIT 1960 FOBT 1960 HIV Screening 1960 Sigmoidoscopy 1960 Colonoscopy 11/24/2023 11/23/2021 Colorectal Cancer Screening 11/24/2023 Depression Monitoring 06/12/2025 12/11/2024, 025 Diabetes: Hemoglobin A1C 06/21/2025 025, 11/06/2024, 08/07/2024, Additional history exists Alcohol/Substance Use Screening 08/07/2025 08/07/2024 Diabetes: Urine Protein Screening 08/08/2025 08/08/2024, 10/31/2023, 08/14/2020, Additional history exists Lipid Panel 08/08/2025 08/08/2024, 10/10, 11/03/2022, Additional history exists Diabetes: Foot Exam 11/06/2025 11/06/2024, 11/06/2024, 11/06/2024, Additional history exists Disability Screening 11/06/2025 11/06/2024 SDOH Screening 11/06/2025 11/06/2024 Lung Cancer Screening 01/25/2026 01/25/2025 Tobacco Screening 05/03/2026 05/03/2025 Eye Exam 12/10/2026 12/10/2024, 08/2024, 12/10/2024, Additional history exists DTaP/Tdap/Td Vaccines (2 - Td or Tdap) 01/21/2030 01/22/2020 Zoster Vaccines Completed 01/22/2020, 05/28/2019 Pneumococcal Vaccine: 50+ Years Completed 04/27/2022, 08/30/2017 Hepatitis C Screening Completed 09/08/2022 RSV Patients and Patients Aged 60 years or older Completed 11/25/2023 Hepatitis B Vaccines Completed 09/06/2024, 01/19/20 COVID-19 Vaccine Completed 04/22/2025, , 09/19/2023, Additional history exists Influenza Vaccine Completed 04/22/2025, , 09/19/2023, Additional history exists HIB Vaccines Aged Out No longer eligi [...] patient's age to complete this topic Meningococcal B Vaccine Aged Out No l onger eligible based on patient's age to complete [...] 11:02 AM EDT) No Kwasi Galeano PharmD Procedures Procedure Name Priority Date/Time Associated Diagnosis Comments POCT GLUCOSE Routine 04/22/2025 10:19 AM EDT Type 2 diabetes mellitus with hyperglycemia, without long-term current use of insulin ([facility]) POCT GLYCATED HEMOGLOBIN, TOTAL Routine 03/22/2025 11:02 AM EDT Type 2 diabetes mellitus with hyperglycemia, without long-term current use of insulin ([facility]/HCC) LDCT LUNG SCREENING Routine 01/25/2025 3 :05 PM EDT ALBUMIN, RANDOM URINE W/CREATININE Routine 08/08/2024 8:09 [...] Recently Relevant to Health Maintenance Results * POCT glucose manually resulted (04/22/2025 10:19 AM EDT) Glucose Blood, POC 169 60 - 200 mg/dL QC Media Lot # [id number] Lot# Expiration Date [id number] Blood Capillary blood specimen / Unknown 04/22/2025 10:19 AM EDT Aruna Mcneill MD POINT OF CARE TEST ENTER/EDIT OR DERABLES Final Result * (ABNORMAL) POCT Hgb A1c (03/22/2025 11:02 AM EDT) Hemoglobin A1C 7.8(A) 4.0 - 5.7 % QC Media Lot # [id number] Lot# Expiration Date [id number] Blood 03/22/2025 11:0 2 AM EDT Aruna Mcneill MD POINT OF CARE TEST ENTER/EDIT OR DERABLES Final Result * CT Lung Screening Low dose (01/25/2025 3:05 PM EDT) Anatomical Region Laterality Modality Lung Computed Tomogra phy 01/25/2025 3:05 PM EDT Narrative 01/25/2025 3:32 PM EDT [place] [address] [address] Scan Report Signed Patient: Jesus Priest MR# : [id number] : 1960 Acct:[id number] Age/Sex: 64 / M ADM Date: 01/25/25 Loc: HO.CT Attending Dr: Shannan Henderson PA-C Ordering Physician: Shannan Henderson PA-C Date of Service: 01/25/25 Procedure(s): CT lung screening Accession Number(s): [id number] cc: Shannan Henderson PA-C; Aruna Mcneill MD Report Number: [id number]: Total DLP = 68.00 mGy-cm EXAMINATION: CT LUNG SCREENING HISTORY: F17.210 - Nicotine dependence, cigarettes, uncomplicated TECHNIQUE: Low dose axial images were obtained from the sternal notch to upper abdomen without IV contrast per standard departmental protocol. Sagittal and coronal reformatted images were also obtained and reviewed. One or more of the following techniques was used for dose reduction: Automated exposure control, adjustment of the mA and/or kV according to patient size, use of iterative reconstruction technique. DLP: 60 mGy-cm COMPARISON: Comparison is made with the prior examination dated 01/20/2024. FINDINGS: Lung nodules: There is a punctate calcified granuloma in the right upper lobe (series 4, image 22). No additional pulmonary nodules are identified. Emphysema: mild Coronary Calcification: mild Aortic Arch Calcification: mild Potentially Significant Incidentals : none Additional Chest Findings: There is no pleural or pericardial effusion. No mediastinal or axillary lymphadenopathy is identified. Visualized upper abdomen: The visualized portions of the liver, spleen, and adrenals have an unremarkable unenhanced appearance. CT/CT lung screening IMPRESSION: No suspicious pulmonary nodules are identified. LUNG-RADS ASSESSMENT: Lung-RADS 2: Benign MANAGEMENT: Continue annual screening with LDCT in 12 months Category S: N/A Electronically signed by: Huey Medina MD 01/25/2025 03:29 PM EDT Dictated By: Huey Medina MD Signed By: <Electronically signed by Huey Medina MD in OV> 01/25/25 1529 DD/ 1505 TD/TT: 01/25/25 1519 Apartment Maintenance Manager: Procedure Note Donotuseinterpreter, Image - 01/25/[address] [address] [address] Scan Report Signed Patient: Stefanie Priest# : [id number] : 1960Acct:[id number] Age/Sex: 64 / MADM Date: 01/25/25 Loc: HO.CT Attending Dr: Shannan Henderson PA-C Ordering Physician: Shannan Henderson PA-C Date of Service: 01/25/25 Procedure(s): CT lung screening Accession Number(s): [id number] cc: Shannan Henderson PA-C; Aruna Mcneill MD Report Number: [id number]: Total DLP = 68.00 mGy-cm EXAMINATION: CT LUNG SCREENING HISTORY: F17.210 - Nicotine dependence, cigarettes, uncomplicated TECHNIQUE: Low dose axial images were obtained from the sternal notch to upper abdomen without IV contrast per standard departmental protocol. Sagittal and coronal reformatted images were also obtained and reviewed. One or more of the following techniques was used for dose reduction: Automated exposure control, adjustment of the mA and/or kV according to patient size, use of iterative reconstruction technique. DLP: 60 mGy-cm COMPARISON: Comparison is made with the prior examination dated 01/20/2024. FINDINGS: Lung nodules: There is a punctate calcified granuloma in the right upper lobe (series 4, image 22). No additional pulmonary nodules are identified. Emphysema: mild Coronary Calcification: mild Aortic Arch Calcification: mild Potentially Significant Incidentals : none Additional Chest Findings: There is no pleural or pericardial effusion. No mediastinal or axillary lymphadenopathy is identified. Visualized upper abdomen: The visualized portions of the liver, spleen, and adrenals have an unremarkable unenhanced appearance. CT/CT lung screening IMPRESSION: No suspicious pulmonary nodules are identified. LUNG-RADS ASSESSMENT: Lung-RADS 2: Benign MANAGEMENT: Continue annual screening with LDCT in 12 months Category S: N/A Electronically signed by: Huey Medina MD 01/25/2025 03:29 PM EDT Dictated By: Huey Medina MD Signed By: <Electronically signed by Huey Medina MD in OV> 01/25/25 1529 DD/ 1505 TD/TT: 01/25/25 1519 Apartment Maintenance Manager: [facility] External Provider IMG CT PROCEDURES Final Result * (ABNORMAL) Lipid Panel with Reflex to Direct LDL (08/08/2024 8:09 AM EST) Triglycerides 146 <150 mg/dL [facility] Comment:Desirable Triglyceri de: less than 150 mg/dLBorderline High Triglyceride 150-199 mg/dLHigh Triglyceride: 200-499 mg/dLVery High Triglyceride: greater than or equal to 5OO mg/dL Cholesterol 214(H) <200 mg/dL [facility] Comment:Desirable Cholestero l: less than 200 mg/dLBorderline High Cholesterol: 200-239 mg/dLHigh Cholesterol: greater than 239 mg/dL LDL Cholesterol Calculated 140(H) <100 mg/dL [facility] Comment:Desirable LDL: less than 100 mg/dLNear Optimal/Above Optimal LDL: 110- 129 mg/dLBorderline High LDL: 130-159 mg/dLHigh LDL: 160-189 mg/dLVery High LDL: greater than or equal to 190 mg/dL HDL Cholesterol 45 >40 mg/dL [facility] Comment:Desirable HDL: great er than 40 mg/dL Note: This HDL assay may give artificially low results in patients with liver disease. Blood 08/08/2024 8:09 AM EST 08/08/2024 11:25 AM EST us Aruna Mcneill MD LAB BLOOD ORDERABLES Final Resul t [facility] [address] [place] [phone] * (ABNORMAL) Albumin, Random Urine W/Creatinine (08/08/2024 8:09 AM EST) Creatinine, Urine 113.85 mg/dL [facility] Microalbumin Urine 58.0 mg/L [facility] Microalbum Creatinine Ratio Ur 50.9(H) <30 ug/mg cr [facility] Comment:Albumin/Creatinine R atio Reference Ranges: Normal: < 30 ug/mg creatinine Microalbuminuria: 30 - 300 ug/mg creatinineClinical Albuminuria: > 300 ug/mg creatinine Urine 08/08/2024 8:09 AM EST 08/08/2024 11:16 AM EST Aruna Mcneill MD LAB URINE ORDERABLES Final Resul t Performing Organization Address City/[facility]/ZIP Co de Phone Number [facility] [address] [place] [address] [phone] * Hepatitis C Antibody with Reflex to HCV, RNA, Quantitative, Real-Time PCR (09/08/2022 8:23 AM EST) Hepatitis C Antibody NON-REACT CORBY NON-REACT CORBY [employer] Index 0.04 <1.00 [facility] [place] [employer] Comment: HCV antibody was non-reactive. There is no laboratory evidence of HCV infection. In most cases, no further action is required. However, if recent HCV exposure is suspected, a test for HCV RNA (test code 43473) is suggested. For additional information please refer to http://education.[employer]/faq/CQP66c5 (This link is being provided for informational/ educational purposes only.) Blood Venous blood specimen / Unknown 09/08/2022 8:23 AM EST 09/08/2022 8:24 AM EST Narrative [facility] - 09/08/2022 9:34 PM EST FASTING:NO FASTING: NO Ayan MARTINES LAB BLOOD ORDERABLES Final Res ult Performing Organization Address City/[facility]/ZIP Co de Phone Number [facility] [address] [place] [address] [facility] [address] [facility], ([address]) [place] [address] * Hm Colonoscopy (11/23/2021) Colonoscopy Normal Normal Narrative Imelda Winkler - 11/23/2021 Recommended 2 year follow up Manish Childs MD HEALTH MAINTENANCE Final Result from Last 3 Months or Most Recently Relevant to Health Maintenance Insurance [facility] C3 Care Teams Fertilizer Applicator Relationship Specialty Start Date End Date Aruna Mcneill MD [address] [place] [address] PCP - General Family Medicine 09/01/23 Kwasi Galeano, PharmD [address] [place] [address] Pharmacist Internal Medicine 11/25/23
--- OUTSIDE RECORDS SUMMARY | 2025-05-08 08:19 | XMS_ITS | Encounter Summary ---
Author Organization [employer] Address [address] [place] [address] Care Team Providers Care Staffing Operations Manager Name Role Phone Aruna Mcneill MD Primary Care Provider [phone] Kwasi Galeano PharmD Unavailable Reason for Visit * Reason Comments Med Refill Encounter Details Date Type Department Care Team (Late st Contact Info) Description 02/03/2025 Refill [facility] [address] [place], [place] [phone] Aruna Mcneill MD [address] [place], [place] [phone] Hyperlipidemia, unspecified hyperlipidemia type Social History Tobacco [...] 05/20/2025 9:00 AM EST Medication Management [address] [address] Kwasi Galeano PharmD [address] [place] [address] 12/10/2025 1:30 PM EDT Medication Management [address] [address] Kwasi Galeano PharmD [address] [place] [address] documented as of this encounter Goals Goal [...] Noted Time PHQ-9 Depression Total Score: 15 12/11/ 025 5:40 PM EDT documented as of this encounter Care Teams Staffing Operations Manager Relationship Specialty Start Date End Date Aruna Mcneill MD [address] [place] [address] PCP - General Family Medicine 09/01/23 Kwasi Galeano, Tung [address] [place] [address] Pharmacist Internal Medicine 11/25/23 documented as of this encounter
--- OUTSIDE RECORDS SUMMARY | 2025-05-08 08:19 | XMS_ITS | Encounter Summary ---
Author Organization [employer] Address [address] [place] [address] Care Team Providers Care Title I Instructional Assistant Name Role Phone Hellen Phillip Primary Care Provider [phone] Aruna Mcneill MD Primary Care Provider [phone] Kwasi Galeano PharmD Unavailable [phone] Encounter Details Date Type Department Care Team ([facility] st Contact Info) Description 05/23/2023 Abstract [facility] MEDICINE [address] [place] [address] Hellen Phillip ANP [address] [place], [place] [phone] Social History Tobacco Use Types Packs/Day Years [...] Description 05/20/2025 9:00 AM EST Medication Management [address] [address] Kwasi Galeano, PharmD [address] [place] [address] 12/10/2025 1:30 PM EDT Medication Management [address] [address] Kwasi Galeano, PharmD [address] [place] [address] documented as of this encounter Procedures Procedure Name Priority Date/Time Associated Diagnosis Comments COLONOSCOPY Routine 11/23/2021 documented in this encounter Results * Colonoscopy (11/23/2021) Colonoscopy Normal Normal Narrative Cathi Imelda - 11/23/2021 Recommended 2 year follow up us Historical Provider HEALTH MAINTENANCE Final Result documented in this encounter Visit Diagnoses Not on filedocumented in this encounter Additional Health Concerns Assessment Noted Time PHQ-9 Depression Total Score: 14 023 10:35 AM EST documented as of this encounter Care Teams Title I Instructional Assistant Relationship Specialty Start Date End Date Hellen Phillip ANP [address] [place] [address] PCP - General Family Medicine 03/31/23 08/31/23 Aruna Mcneill MD [address] [place] [address] PCP - General Family Medicine 09/01/23 Kwasi Galeano, ChinoD [address] [place] [address] Pharmacist Internal Medicine 11/25/23 documented as of this encounter
== END 2025-05-08 08:08 | disposition home or self-care (01) ==
LOC: HO.LAB 08:07
PROVIDERS: PCP Family Medicine; Visit Provider Urology
DX: E29.1 Testicular hypofunction (principal)
CPT/HCPCS: 36415; 84403

== ENCOUNTER 2025-05-21 10:24 | Outpatient (AMB) | payer MEDICAID, SELFPAY ==
--- NOTE | 2025-05-21 10:36 | A.OFFVIS_ITS ---
Intake Visit Reasons: 3m/labs/ED/LUTS Intake Note: Patient is present for 3M//TESTO Urology Medication:TADALAFIL,SILDENAFIL,testosterone Antibiotic Allergy:EMPAGLIFLOZIN Blood Thinner:ASPIRIN Labs done : 05/08/25 , Total Testosterone 530 Finance Specialist Required: Yes Finance Specialist Language: Djiboutian Accompanied by: Self / Same As Patient Allergies empagliflozin (From Jardiance) Adverse Reaction (Intermediate, Verified 02/15/25 09:17) Rash HPI Comments Details: Jesus is a pleasant male. He is a patient of . Seen for following urologic conditions - phimosis - erectile dysfunction secondary to diabetes - hypogonadism Remains on multi agent diabetes medications with high-intensity lipid management Djiboutian translation provided in office by qualified medical billing and coding instructor Three-month follow-up trial testosterone gel Is applying 2 pumps daily Significant improvement in testosterone Mild improvement in well-being Is on GLP 1 Remains on 10 mg daily tadalafil Did discuss sleep apnea Has prior diagnosis Does not use mask for therapy as was not given by antibody Recommend he follow-up with primary care over this issue Hypogonadism Low, low normal on multiple occasions Labs - T 12/01 253, 08/04 320, 02/01 300, 05/04 530 Phimosis Ongoing Narrowing ring on foreskin Background diabetes Circumcision performed 01/29 Erectile dysfunction with borderline low testosterone Progressive Unable to obtain and maintain erection Current therapy 10 mg daily tadalafil Concurrent diagnosis diabetes with high-intensity lipid management, multi agent diabetic management 11/30 T 323, 12/01 253, 08/04 T 340 P 0.56 PFSH Medical History CAD (coronary artery disease) On anticoagulant therapy H/O myocardial infarction, greater than 8 weeks (~05/2019) HTN (hypertension) Elevated cholesterol Diabetes type 2, uncontrolled 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 Sleep apnea Nicotine dependence, cigarettes, uncomplicated Enlarged prostate Tubular adenoma Obesity due to excess calories Proteinuria COVID-19 vaccine series completed Surgical History History of heart artery stent History of laparoscopic cholecystectomy History of incisional hernia repair History of circumcision History of colonoscopy Family History Mother Diabetes Father HTN (hypertension) Diabetes Maternal Grandmother Diabetes Maternal Grandfather Diabetes Family/Other Diabetes Family/Other Acute renal failure on dialysis Social History Household Members: Spouse, Family, Children and Other Are you a primary day care home provider to a significant other at home: No Do you presently have visiting nurse or other home services: No Alcohol intake: current Alcohol intake frequency: holidays/special occasions only Patient Tobacco Use Status: Current everyday Tobacco user Tobacco use type: Cigarette Cigarettes Per Day: 10 Years Smoked: (onset 19yo, 1/2-1ppd x 44yrs, 30+PYH) Review of Systems Const Denies chills and Denies fever(s) Card Reports no additional complaints and Denies syncope Resp Denies cough GI Denies abdominal pain and Denies heartburn Reports as per HPI and Denies change in libido Neuro Denies syncope Psych Denies change in libido Endo Denies change in libido Physical Exam Const General: cooperative, healthy appearing, comfortable and no acute distress Orientation/consciousness: patient oriented x3 HEENT Face and sinus: Yes normal facial exam Mouth: moist mucous membranes Neck Neck: Yes normal visual inspection, Yes full ROM and Yes trachea midline Chest Chest palpation & inspection: normal inspection of the chest Resp Effort & Inspection: normal respiratory effort, able to speak in complete sentences and no respiratory distress GI Inspection: Yes normal to inspection Back/Spine/Pelvis Cervical Spine: normal cervical lordosis Thoracic/Lumbar Spine: thoracic and lumbar spine normal to inspection Skin General skin exam: no rashes or lesions noted Neuro General: patient oriented x3, gait normal, tone normal and moves all extremities Extrem General: Yes normal to inspection and Yes capillary refill normal Assessment & Plan Assessment & Plan (1) Erectile dysfunction associated with type 2 diabetes mellitus: Code(s): E11.69 - Type 2 diabetes mellitus with other specified complication; N52.1 - Erectile dysfunction due to diseases classified elsewhere Category: Medical (2) Hypogonadism in male: Code(s): E29.1 - Testicular hypofunction Category: Medical Plan Six-month follow-up lab work Orders: Orders Hematocrit 5 Months E29.1 - Testicular hypofunction Testosterone, Total 5 Months E29.1 - Testicular hypofunction Prostate Specific Antigen 5 Months E29.1 - Testicular hypofunction Medications: Refilled testosterone 1 packet transdermal DAILY 150 grams 5RF 30 days E29.1 - Testicular hypofunction Patient Instructions: This note is constructed using voice recognition software. While every effort has been made to ensure accuracy blast furnace tender errors may have been included. Imaging studies, laboratory and physical exam results were discussed and reviewed in detail. No major barriers to patient understanding were identified. An opportunity to ask questions regarding the treatment plan was provided. All questions were answered. The patient expressed understanding and agreement with the above treatment plan. The patient is aware they should contact our office by phone for worsening of their current condition or the appearance of new urologic symptoms. Compliance is encouraged with any medications and followup testing that is ordered. It is a privilege to participate in the urologic care of your patient. If you have any questions or concerns regarding treatment for the above conditions, or other urologic issues, please do not hesitate to contact me. The office telephone contact is [phone]. Sincerely, Dr Kaiden Hernández MD, [facility] - Urology Compassionate Specialist Care for the Genitourinary System Coding Level of Care Code Est Pt Level 3 (46648) Complex EM visit Add On G2211 Diagnoses Erectile dysfunction associated with type 2 diabetes mellitus E11.69; N52.1 Hypogonadism in male E29.1
--- OUTSIDE RECORDS SUMMARY | 2025-05-21 11:58 | XMS_ITS | Encounter Summary ---
Author Organization [employer] Address [address] [place] [address] Care Team Providers Care Resistance Machine Welder Setter Name Role Phone Aruna Mcneill MD Primary Care Provider [phone] Kwasi Galeano PharmD Unavailable [phone] Encounter Details Date Type Department Care Team ([facility] st Contact Info) Description 11/01/2023 Orders Only [facility] MEDICINE [address] [place], [place] [phone] Aruna Mcneill MD [address] [place] [address] Hyperlipidemia, unspecified hyperlipidemia type Social History Tobacco [...] Care Team (Late st Contact Info) Description 06/24/2025 9:30 AM EST Medication Management [address] [address] Kwasi Galeano, PharmD [address] [place] [address] 12/10/2025 1:30 PM EDT Medication Management [address] [address] Kwasi Galeano, PharmD [address] [place] [address] documented as of this encounter Visit Diagnoses Diagnosis Hyperlipidemia, unspecified hyperlipidemia type documented in this encounter Additional Health Concerns Assessment Noted Time PHQ-9 Depression Total Score: 14 023 10:35 AM EST documented as of this encounter Care Teams Resistance Machine Welder Setter Relationship Specialty Start Date End Date Aruna Mcneill MD [address] [place] [address] PCP - General Family Medicine 09/01/23 Kwasi Galeano, ChinoD [address] [place] [address] Pharmacist Internal Medicine 11/25/23 documented as of this encounter
--- OUTSIDE RECORDS SUMMARY | 2025-05-21 11:58 | XMS_ITS | Encounter Summary ---
Author Organization [employer] Address [address] [facility] [address] [address] [place] [address] Care Team Providers Care Aquarium Specialist Name Role Phone Ayan Gilbert Primary Care Provider Unavail able Hellen Phillip Primary Care Provider [phone] Aruna Mcneill MD Primary Care Provider [phone] Kwasi Galeano PharmD Unavailable [phone] Encounter Details Date Type Department Care Team ([facility] Contact Info) Description 06/14/2022 Orders Only [facility] [address] [place] [address] Odilon Lynch RN [address] [place], [place] [phone] Social History Tobacco Use Types Packs/Day Years [...] Department Care Team (Late Contact Info) Description 06/24/2025 9:30 AM EST Medication Management [facility] [address] [place] [address] Kwasi Galeano, PharmD [address] [facility] [place] [address] 12/10/2025 1:30 PM EDT Medication Management [facility] [address] [place] [address] Kwasi Galeano, PharmD [address] [place] [address] documented as of this encounter Visit Diagnoses Not on filedocumented in this encounter Additional Health Concerns Assessment Noted Time PHQ-9 Depression Total Score: 22 022 11:07 AM EST documented as of this encounter Care Teams Aquarium Specialist Relationship Specialty Start Date End Date Ayan Gilbert AGNP PCP - General Family Medicine 06/08/22 03/30/23 Hellen Phillip ANP [address] [place] [address] PCP - General Family Medicine 03/31/23 08/31/23 Aruna Mcneill MD [address] [place] [address] PCP - General Family Medicine 09/01/23 Kwasi Galeano, PharmD [address] [place] [phone] Pharmacist Internal Medicine 11/25/23 documented as of this encounter
--- OUTSIDE RECORDS SUMMARY | 2025-05-21 11:58 | XMS_ITS | Encounter Summary ---
Author Organization [employer] Address [address] [facility] [address] [facility] [address] [address] [facility] [address] [place] [address] Care Team Providers Care Data Migration Consultant Name Role Phone Aruna Mcneill MD Primary Care Provider [phone] Kwasi Galeano PharmD Unavailable [phone] Encounter Details Date Type Department Care Team (Latest Contact Info) Description 05/20/2025 Travel Social History Tobacco Use Types Packs/Day [...] Description 06/24/2025 9:30 AM EST Medication Management [address] [address] Kwasi Galeano PharmD [address] [place] [address] 12/10/2025 1:30 PM EDT Medication Management [address] [address] Kwasi Galeano PharmD [address] [place] [address] documented as of this encounter Goals Goal Patient Goal Type Associated Problems Recent Progress Patient-Stated? Author Blood Pressure < 140/90 Blood Pressure 120/60(2024 9:16 AM EST) No Kwasi Galeano PharmD Hemoglobin A1c < 7 Result Component 7.8( 11:02 AM EDT) No Kwasi Galeano PharmD documented as of this encounter Visit Diagnoses Not on filedocumented in this encounter Additional Health Concerns Assessment Noted Time PHQ-9 Depression Total Score: 15 025 5:40 PM EDT documented as of this encounter Care Teams Data Migration Consultant Relationship Specialty Start Date End Date Aruna Mcneill MD [address] [place] [address] PCP - General Family Medicine 09/01/23 Kwasi Galeano, PharmD [address] [place] [address] Pharmacist Internal Medicine 11/25/23 documented as of this encounter
--- OUTSIDE RECORDS SUMMARY | 2025-05-21 11:58 | XMS_ITS | Clinical Summary ---
Author Organization [employer] Address [address] [place] [address] Care Team Providers Care System Controller Name Role Phone Aruna Mcneill MD Primary Care Provider [phone] Kwasi Galeano PharmD Unavailable [phone] Allergies Active Allergy Reactions Criticality Noted Date Comments Empagliflozin Rash Low 09/22/2021 Metformin 09/22/2021 Other reaction(s): Abdominal discomfort Medications * This document contains information received from the source organization and may not represent a complete record from that organization. aspirin 81 MG EC tablet Take 1 tablet by mouth in the morning. 019 Active rosuvastatin (Crestor) 40 MG tablet take 1 tablet by oral route QHS 019 Active clopidogrel (Plavix) 75 MG tablet Take 75 mg by mouth in the morning. 023 Active Blood Glucose Monitoring Suppl (FreeStyle Lite) w/Device kit 1 Dose 4 times daily. Check before meals 3 times a day, one time 2 hours after the biggest meal of the day, and as needed when you feel sick. Lithuanian label 1 kit 024 Active nitroglycerin (Nitrostat) 0.4 MG SL tablet DISSOLVE 1 TABLET UNDER THE TONGUE EVERY 5 MINUTES NEEDED FOR CHEST PAIN. CALL 911 IF NO RELIEF 024 Active FREESTYLE LITE test stripIndications :Type 2 diabetes mellitus without complications (HCC) TEST BLOOD SUGAR THREE TIMES DAILY 100 strip 11 025 Active dapagliflozin (Farxiga) 10 MGIndications:Ty pe 2 diabetes mellitus with hyperglycemia, without long-term current use of insulin (HCC) Take 1 tablet (10 mg) by mouth Once per day. 90 tablet 3 025 Active cholecalciferol (Vitamin D-3) 25 MCG (1000 UT) tabletIndication s:Vitamin D Deficiency Take 1 tablet (25 mcg) by mouth Once per day. 90 tablet 3 025 2025 Active clotrimazole (Lotrimin) 1 % cream Apply topically 2 times daily. To feet / between toes 60 g Active Alcohol Swabs (Alcohol Prep) 70 % padsIndications: Type 2 diabetes mellitus without complications (HCC) USE DIRECTED THREE TIMES DAILY 100 each Active TRUEplus Lancets 33G miscIndications: Type 2 diabetes mellitus without complications (HCC) USE DIRECTED TO TEST BLOOD SUGAR THREE TIMES DAILY 100 each Active cyanocobalamin (Vitamin B-12) 1000 MCG/ML injection Administer 1000 mcg IM weekly for 4 weeks, then monthly 4 mL Active metoprolol succinate XL (Toprol-XL) 50 MG 24 hr tabletIndication s:Essential hypertension Take 1 tablet by mouth every morning 90 tablet 1 Active magnesium oxide (Mag-Ox) 400 MG tabletIndication s:Migraine without aura, not intractable, without status migrainosus Take 1 tablet (400 mg) by mouth in the morning. 90 tablet 3 025 Active lisinopril-hydro CHLOROthiazide 20-12.5 MG tablet Take 2 tablets by mouth Once per day. 180 tablet 1 025 Active Tirzepatide (Mounjaro) 5 MG/0.5ML solution auto-injectorInd ications:Type 2 diabetes mellitus with hyperglycemia, without long-term current use of insulin (HCC) Inject 5 mg under the skin 1 (one) time per week. 2 mL 025 Active Icosapent Ethyl (Vascepa) 1 g capsule Take 2 capsules (2 g) by mouth with breakfast and with evening meal. 120 capsule 11 Active metoprolol succinate XL (Toprol XL) 25 MG 24 hr tablet Take 1 tablet (25 mg) by mouth Once per day. Do not crush or chew. 90 tablet 3 025 2025 Active Additional Information Patient not taking.Reason: Other (Patient has not started and BP has been well controlled. Will recheck BP at FU 06/2025 to determine if should be initiated.), Reported on 05/20/2025 Varenicline Tartrate, Starter, 0.5 MG X 11 & 1 MG X 42 tablet therapy packIndications: Tobacco dependence Take 0.5 mg by mouth Once per day for 3 days, THEN 0.5 mg 2 times daily for 4 days, THEN 1 mg 2 times daily for 21 days. 53 each 025 2024 Discontinued(M ed list cleanup (will not trigger notification to Pharmacy)) Hospital, [...] on 10/14/2023 - [place]. Hernández, [facility] [place] - Referred to another urology service for second opinion per patient's request Hypogonadism in male 05/03/2025 Assessment & Plan (05/03/2025 10:42 AM EDT): - Currently following with Dr. Hernández [place] [facility] [place] - Prescribed testosterone gel Moderate major depression (CMS/HCC) 01/23/2025 Assessment & Plan (05/03/2025 10:48 AM EDT): - Current [facility] provider: BHN - Patient declined pharmacological treatment LOVE (generalized [...] - Pt declines pharmacological treatment - Current [facility] provider: Will Assessment & Plan (12/11/2024 5:06 PM EDT): [...] AM EDT): - following with Dr. Hernández, [facility] [place] - s/p circumcision and frenulectomy on 02/01/22 for balanitis and phimosis - continue current medication PDE5 inhibitor with caution - Patient request second opinion Assessment & Plan (11/06/2024 9:56 AM EDT): - following with Dr. Hernández, [facility] [place] - s/p circumcision and frenulectomy on 02/01/22 for balanitis and phimosis - continue current medication PDE5 inhibitor with caution Assessment & Plan (11/06/2023 12:55 PM EDT): - following with Dr. Hernández, [facility] [place] - s/p circumcision and frenulectomy on 02/01/22 for balanitis and phimosis - continue current medication PDE5 inhibitor with caution History of NV (myocardial infarction) 10/30/2023 Mood disorder 09/03/2022 Assessment & Plan (11/06/2024 9:57 AM EDT): - behavioral health service provider: [facility] - will check at next visit if patient is currently connected with [facility] Assessment & Plan (08/09/2024 8:28 AM EST): - behavioral health service provider: [facility] - will check at next visit if patient is currently connected with [facility] Assessment & Plan (11/06/2023 12:29 PM EDT): - behavioral health service provider: [facility] - will check at next visit if patient is currently connected with [facility] Assessment & Plan (09/17/2022 9:04 AM EST): Patient is managed by [facility] Last appointment was 08/24/22 Assessment & Plan (09/03/2022 5:38 PM EST): PHQ: 15, placed N referral, mentioned patient does not understand zoom [...] to discuss his nitroglycerin use with his land department head He stated he had an echocardiogram 2 [...] & Plan (04/24/2025 5:17 PM EDT): - land department head: ANNIE, last seen in September 2023 - Echo - will obtain from [facility] - last stress test - will obtain from [facility] - continue statin, ACEI, BB, ASA, and clopidogrel. Assessment & Plan (11/06/2024 9:56 AM EDT): - land department head: ANNIE, last seen in September 2023 - Echo - will obtain from [facility] - last stress test - will obtain from [facility] - continue statin, ACEI, BB, ASA, and clopidogrel. Assessment & Plan (08/09/2024 8:28 AM EST): - land department head: CASSIDYVinicio, last seen in September 2023 - Echo - will obtain from [facility] - last stress test - [facility] - continue statin, ACEI, BB, ASA, and clopidogrel. Assessment & Plan (11/06/2023 1:01 PM EDT): - land department head: CASSIDYVinicio, last seen in September 2023 - Echo - will obtain from [facility] - last stress test - will obtain from [facility] - continue statin, ACEI, BB, ASA, and [...] (05/03/2025 10:46 AM EDT): - following with [facility] [place], last seen in December 2022 - sleep study on 02/01/23 AutoPAP 5-20 cm H2O - recommended to check with sleep medicine clinic for CPAP and its coverage - patient has lost weight and may have improved Assessment & Plan (11/06/2024 9:55 AM EDT): - following with [facility] [place], last seen in December 2022 - sleep study on 02/01/23 AutoPAP 5-20 cm H2O - recommended to check with sleep medicine clinic for CPAP and its coverage - patient has lost weight and may have improved Assessment & Plan (08/09/2024 8:27 AM EST): - following with [facility] [place], last seen in December 2022 - sleep study on 02/01/23 AutoPAP 5-20 cm H2O - recommended to check with sleep medicine clinic for CPAP and its coverage - patient has lost weight and may have improved Assessment & Plan (11/06/2023 12:50 PM EDT): - following with [facility] [place], last seen in December [...] interrupted until then - refer back to [facility] [place] Abdominal wall hernia 08/30/2017 Hyperlipidemia 08/30/2017 [...] 214; LDL 140; HDL 45 Dental care: [facility] Assessment & Plan (12/11/2024 5:02 PM [...] 214; LDL 140; HDL 45 Dental care: [facility] Assessment & Plan (11/06/2024 10:54 AM [...] 214; LDL 140; HDL 45 Dental care: [facility] Assessment & Plan (08/12/2024 1:09 PM [...] Microalbumin: 10/31/23 Lipid profile: 10/31/23 Dental care: [facility] Assessment & Plan (11/06/2023 12:45 PM [...] Microalbumin: 10/31/23 Lipid profile: 10/31/23 Dental care: [facility] Assessment & Plan (01/05/2023 12:29 PM [...] prandin and plavix. Received phone call from [facility] pharmacy warning me of this potential [...] take 1 tablet by oral route QHS TRUEplus Lancets 33G [facility] TEST BLOOD SUGAR THREE [...] Encounters Date Type Department Care Team Description 05/20/2025 Travel 05/08/2025 Orders Only GENERIC EXTERNAL DATA DEPARTMENT Provider, Generic External Data 04/22/2025 10:15 AM EDT Office Visit [facility] [address] [place] [phone] Aruna Mcneill MD Essential hypertension (Primary Dx); [...] unspecified hyperlipidemia type 04/22/2025 Travel 04/19/2025 Telephone [facility] [address] [place] [address] Aruna Mcneill MD chartprep 04/18/2025 Refill [facility] [address] [place] [address] Kwasi Galeano, ChinoD Type 2 diabetes mellitus with hyperglycemia, without long-term current use of insulin ([facility]) (Primary Dx) 03/22/2025 Travel 03/12/2025 Telephone [facility] [address] [place] [address] Aruna Mcneill MD No Show 03/04/2025 Telephone [facility] [address] [place] [address] Aruna Mcneill MD No Show 02/28/2025 Refill [facility] [address] [place] [address] Aruna Mcneill MD 02/28/2025 Refill [facility] [address] [place] [address] Aruna Mcneill MD 02/25/2025 Refill [facility] [address] [place] [address] Yara Mahan MD Type 2 diabetes mellitus with hyperglycemia, without long-term current use of insulin ([facility]) from Last 3 Months Immunizations Immunization Administration [...] Sign Reading Time Taken Comments Blood Pressure 120/60 05/20/2025 9:16 AM EST Pulse 76 05/20/2025 9:16 AM EST Temperature 36.3 C (97.3 F) 04/22/2025 10:15 AM EDT Respiratory Rate 17 04/22/2025 10:15 AM EDT Oxygen Saturation 100% 04/22/2025 10:15 AM EDT Inhaled Oxygen Concentration - - Weight 83.9 kg (185 lb) 05/20/2025 9:19 AM EST Height 162.6 cm (5' 4 ) 04/22/2025 10:15 AM EDT Body Mass Index 31.76 04/22/2025 10:15 AM EDT Plan of Treatment Upcoming Encounters Date Type Department Care Team (Late st Contact Info) Description 06/24/2025 9:30 AM EST Medication Management [facility] [address] [place] [phone] Kwasi Galeano, PharmD [address] [place] [address] 12/10/2025 1:30 PM EDT Medication Management [facility] [address] [place] [phone] Kwasi Galeano, PharmD [address] [place] [address] Health Maintenance Due Date Last Done Comments [...] Screening 05/03/2026 05/03/2025 Eye Exam 12/10/2026 12/10/2024, 0608/2024, 12/10/2024, Additional history exists DTaP/Tdap/Td Vaccines (2 - Td or Tdap) 01/21/2030 01/22/2020 Zoster Vaccines Completed 01/22/2020, 05/28/2019 Pneumococcal Vaccine: 50+ Years Completed 04/27/2022, 08/30/2017 Hepatitis C Screening Completed 09/08/2022 RSV Patients and Patients Aged 60 years or older Completed 11/25/2023 Hepatitis B Vaccines Completed 09/06/2024, 01/19/20 24 COVID-19 Vaccine Completed 04/22/2025, , 09/19/2023, Additional [...] Procedure Name Priority Date/Time Associated Diagnosis Comments TESTOSTERONE, TOTAL, MALES (ADULT), IA Routine 05/08/2025 8:15 AM EDT POCT GLUCOSE Routine 04/22/2025 10:19 AM EDT Type 2 diabetes mellitus with hyperglycemia, without long-term current use of insulin (HCC) POCT GLYCATED HEMOGLOBIN, TOTAL Routine 03/22/2025 11:02 AM EDT Type 2 diabetes mellitus with hyperglycemia, without long-term current use of insulin (CMS/HCC) LDCT LUNG SCREENING Routine 01/25/2025 3 :05 [...] Recently Relevant to Health Maintenance Results * Testosterone, Total, males (Adult), IA (05/08/2025 8:15 AM EDT) Testosterone, Total 530 250 - 1100 ng/dL [facility] Comment:Men with clinically significant hypogonadalsymptoms and testosterone values repeatedly inthe range of the 200-300 ng/dL or less, maybenefit from testosterone treatment afteradequate risk and benefits counseling.For additional information, please refer tohttp://education.[employer]/faq/TqrmvWtlclrlmurdgYEWJWUQET991(This link is being provided for informational/educational purposes only.)This test was developed and its analytical performancecharacteristics have been determined by [email or web address] [place], [place]. It hasnot been cleared or approved by the U.S. Food and DrugAdministration. This assay has been validated pursuantto the CLIA regulations and is used for clinicalpurposes.THIS TEST WAS PERFORMED AT:[facility] [place] [address]PUYFGPCMOUNA HODGES MD,PHD 05/08/2025 8:15 AM EDT 05/08/2025 8:15 AM EDT us Generic External Data Provider LAB BLOOD ORDERAB LES Final Result [facility] [address] [place] [address] [phone] * POCT glucose manually resulted (04/22/2025 10:19 AM EDT) Pathologist [facility] Glucose Blood, POC 169 60 - 200 mg/dL QC Media Lot # [id number] Lot# Expiration Date [id number] Blood Capillary blood specimen / Unknown 04/22/2025 10:19 AM EDT us Aruna Mcneill MD POINT OF CARE TEST ENTER/EDIT OR DERABLES Final Result * (ABNORMAL) POCT Hgb A1c (03/22/2025 11:02 AM EDT) Hemoglobin A1C 7.8(A) 4.0 - 5.7 % QC Media Lot # [id number] Lot# Expiration Date [id number] Blood 03/22/2025 11:0 2 AM EDT Aruna Mcneill MD POINT OF CARE TEST ENTER/EDIT OR DERABLES Final Result * CT Lung Screening Low dose (01/25/2025 3:05 PM EDT) Anatomical Region Laterality Modality Lung Computed Tomogra phy 01/25/2025 3:05 PM EDT Narrative 01/25/2025 3:32 PM EDT [address] [address] [address] Scan Report Signed Patient: Jesus Priest MR# : [id number] : 1960 Acct:[id number] Age/Sex: 64 / M ADM Date: 01/25/25 Loc: HO.CT Attending Dr: Shannan Henderson PA-C Ordering Physician: Shannan Henderson PA-C Date of Service: 01/25/25 Procedure(s): CT lung screening Accession Number(s): [id number] cc: Shannan Henderson PA-C; Aruna Mcneill MD Report Number: [id number]: Total DLP = 68.00 mGy-cm EXAMINATION: CT [...] Huey Medina MD 01/25/2025 03:29 PM EDT RP Dictated By: Huey Medina MD Signed By: <Electronically signed by Huey Medina MD in OV> 01/25/25 1529 DD/ 1505 TD/TT: 01/25/25 1519 Surveyor'S Assistant: Procedure Note Donotuseinterpreter, Image - 01/25/[address] [place] [address] [address] Scan Report Signed Patient: Stefanie Priest# : [id number] : 1960Acct:[id number] Age/Sex: 64 / MADM Date: 01/25/25 Loc: .CT Attending Dr: Shannan Henderson PA-C Ordering Physician: Shannan Henderson PA-C Date of Service: 01/25/25 Procedure(s): CT lung screening Accession Number(s): [id number] cc: Shannan Henderson PA-C; Aruna Mcneill MD Report Number: [id number]: Total DLP = 68.00 mGy-cm EXAMINATION: CT [...] Huey Medina MD 01/25/2025 03:29 PM EDT RP Dictated By: Huey Medina MD Signed By: <Electronically signed by Huey Medina MD in OV> 01/25/25 1529 DD/ 1505 TD/TT: 01/25/25 1519 Surveyor'S Assistant: [facility] External Provider IMG CT PROCEDURES Final Result * (ABNORMAL) Lipid Panel with Reflex to Direct LDL (08/08/2024 8:09 AM EST) Triglycerides 146 <150 mg/dL [facility] Comment:Desirable Triglyceri de: less than 150 mg/dLBorderline High Triglyceride 150-199 mg/dLHigh Triglyceride: 200-499 mg/dLVery High Triglyceride: greater than or equal to 5OO mg/dL Cholesterol 214(H) <200 mg/dL [facility] Comment:Desirable Cholestero l: less than 200 mg/dLBorderline High Cholesterol: 200-239 mg/dLHigh Cholesterol: greater than 239 mg/dL LDL Cholesterol Calculated 140(H) <100 mg/dL [facility] Comment:Desirable LDL: less than 100 mg/dLNear Optimal/Above Optimal LDL: 110- 129 mg/dLBorderline High LDL: 130-159 mg/dLHigh LDL: 160-189 mg/dLVery High LDL: greater than or equal to 190 mg/dL HDL Cholesterol 45 >40 mg/dL [facility] Comment:Desirable HDL: great er than 40 mg/dL Note: This HDL assay may give artificially low results in patients with liver disease. Blood 08/08/2024 8:09 AM EST 08/08/2024 11:25 AM EST Aruna Mcneill MD LAB BLOOD ORDERABLES Final Resul t Performing Organization Address [facility] de Phone Number [facility] [address] [place] [phone] * (ABNORMAL) Albumin, Random Urine W/Creatinine (08/08/2024 8:09 AM EST) Creatinine, Urine 113.85 mg/dL [facility] Microalbumin Urine 58.0 mg/L [facility] Microalbum Creatinine Ratio Ur 50.9(H) <30 ug/mg cr [facility] Comment:Albumin/Creatinine R atio Reference Ranges: Normal: < 30 ug/mg creatinine Microalbuminuria: 30 - 300 ug/mg creatinineClinical Albuminuria: > 300 ug/mg creatinine Urine 08/08/2024 8:0 9 AM EST 08/08/2024 11:16 AM EST Aruna Mcneill MD LAB URINE ORDERABLES Final Resul t Performing Organization Address [facility] de Phone Number [facility] [address] [place] [phone] * Hepatitis C Antibody with Reflex to HCV, RNA, Quantitative, Real-Time PCR (09/08/2022 8:23 AM EST) Hepatitis C Antibody NON-REACT CORBY NON-REACT CORBY [facility] [place] [facility] [facility] Index 0.04 <1.00 [facility] [place] [facility] [facility] Comment: HCV antibody was non-reactive. There is no laboratory evidence of HCV infection. In most cases, no further action is required. However, if recent HCV exposure is suspected, a test for HCV RNA (test code 51464) is suggested. For additional information please refer to http://education.ResoServ/faq/PDR98g3 (This link is being provided for informational/ educational purposes only.) Blood Venous blood specimen / Unknown 09/08/2022 8:23 AM EST 09/08/2022 8:24 AM EST Narrative [facility] - 09/08/2022 9:34 PM EST FASTING:NO FASTING: NO Ayan Gilbert [facility] LAB BLOOD ORDERABLES Final Res ult [employer] [address] [facility], [place] [address] [facility] [facility] [address], ([address]) [place] [address] * Colonoscopy (11/23/2021) Colonoscopy Normal Normal Narrative Imelda Winkler - 11/23/2021 Recommended 2 year follow up Historical Provider MD HEALTH MAINTENANCE Final Result from Last 3 Months or Most Recently Relevant to Health Maintenance Insurance [facility] C3 Care Teams System Controller Relationship Specialty Start Date End Date Aruna Mcneill MD [address] [place] [address] PCP - General Family Medicine 09/01/23 Kwasi Galeano, PharmD [address] [place] [phone] Pharmacist Internal Medicine 11/25/23
--- OUTSIDE RECORDS SUMMARY | 2025-05-21 11:58 | XMS_ITS | Encounter Summary ---
Author Organization [employer] Address [address] [place] [address] Care Team Providers Care Political Researcher Name Role Phone Ayan Gilbert Primary Care Provider Unavail able Hellen Phillip Primary Care Provider [phone] Aruna Mcneill MD Primary Care Provider [phone] Kwasi Galeano PharmD Unavailable [phone] Encounter Details Date Type Department Care Team ([facility] Contact Info) Description 06/14/2022 Orders Only [facility] [address] [place] [address] Mariano Guan MD [address] [place] [address] Type 2 diabetes mellitus without complication, without long-term current use of insulin ([facility]) (Primary Dx) Social History Tobacco Use Types [...] Upcoming Encounters Date Type Department Care Team ([facility] Contact Info) Description 06/24/2025 9:30 AM EST Medication Management [address] [address] Kwasi Galeano, PharmCharla [address] [place] [phone] 12/10/2025 1:30 PM EDT Medication Management [address] [address] Kwasi Galeano, PharmD [address] [place] [phone] documented as of this encounter Visit Diagnoses Diagnosis Type 2 diabetes mellitus without complication, without long-term current use of insulin (HCC)- Primary documented in this encounter Additional Health Concerns Assessment Noted Time PHQ-9 Depression Total Score: 22 022 11:07 AM EST documented as of this encounter Care Teams Political Researcher Relationship Specialty Start Date End Date Ayan Gilbert AGNP PCP - General Family Medicine 06/08/22 03/30/23 Hellen Phillip ANP [address] [place] [phone] PCP - General Family Medicine 03/31/23 08/31/23 Aruna Mcneill MD [address] [place] [phone] PCP - General Family Medicine 09/01/23 Kwasi Galeano, PharmD [address] [place] [phone] Pharmacist Internal Medicine 11/25/23 documented as of this encounter
--- OUTSIDE RECORDS SUMMARY | 2025-05-21 11:58 | XMS_ITS | Encounter Summary ---
Author Organization [employer] Address [address] [place] [address] Care Team Providers Care Manager Concrete Name Role Phone Aruna Mcneill MD Primary Care Provider [phone] Kwasi Galeano PharmD Unavailable [phone] Reason for Referral * Consultation (Routine) - Pending Review Specialty Diagnoses / Procedures Referred By Contac t Referred To Contact Pharmacy Diagnoses Essential hypertension Yara Mahan MD [address] [place] [phone] Phone: tel: fax: Referral ID Status Reason Start Date Expiration Date Visits Requested Visits Authorized [id number] Pending Review Continuity of Care 10/18/2024 10/18/2025 6 6 Encounter Details Date Type Department Care Team (Late st Contact Info) Description 10/18/2024 Orders Only [facility] [address] [place] [address] [phone] Yara Mahan MD [address] [place] [address] [phone] Essential hypertension (Primary Dx) Social History Tobacco [...] Description 06/24/2025 9:30 AM EST Medication Management [address] [address] Kwasi Galeano, PharmD [address] [place] [address] 12/10/2025 1:30 PM EDT Medication Management [address] [address] Kwasi Galeano, PharmD [address] [place] [phone] Scheduled Referrals Name Type Priority Associated Diagnoses [...] documented as of this encounter Care Teams Manager Concrete Relationship Specialty Start Date End Date Aruna Mcneill MD [address] [place] [address] PCP - General Family Medicine 09/01/23 Kwasi Galeano PharmD [address] [place] [phone] Pharmacist Internal Medicine 11/25/23 documented as of this encounter
--- OUTSIDE RECORDS SUMMARY | 2025-05-21 11:58 | XMS_ITS | Encounter Summary ---
Author Organization [employer] Address [address] 7t [place] [address] Care Team Providers Care Congressional Assistant Name Role Phone Hellen Phillip Primary Care Provider [phone] Aruna Mcneill MD Primary Care Provider [phone] Kwasi Galeano PharmD Unavailable [phone] Encounter Details Date Type Department Care Team ([facility] st Contact Info) Description 05/23/2023 Abstract [facility] MEDICINE [address] [place] [address] Hellen Phillip ANP 230 [place] [address] Social History Tobacco Use Types Packs/Day Years [...] Description 06/24/2025 9:30 AM EST Medication Management [address] [address] Kwasi Galeano, PharmD [address] [place] [address] 12/10/2025 1:30 PM EDT Medication Management [address] [address] Kwasi Galeano, PharmD 230 [place] [address] documented as of this encounter Procedures Procedure [...] documented as of this encounter Care Teams Congressional Assistant Relationship Specialty Start Date End Date Hellen Phillip ANP [address] [place] [address] PCP - General Family Medicine 03/31/23 08/31/23 Aruna Mcneill MD 230 [place] [address] PCP - General Family Medicine 09/01/23 Kwasi Galeano, ChinoD [address] [place] [address] Pharmacist Internal Medicine 11/25/23 documented as of this encounter
--- OUTSIDE RECORDS SUMMARY | 2025-05-21 11:58 | XMS_ITS | Encounter Summary ---
Author Organization [employer] Address [address] 7t [place] [address] Care Team Providers Care Professor Of Psychology Name Role Phone Ayan Gilbert CONRAD Primary Care Provider Unavail able Hellen Phillip Primary Care Provider [phone] Aruna Mcneill MD Primary Care Provider [phone] Kwasi Galeano PharmD Unavailable [phone] Encounter Details Date Type Department Care Team ([facility] Contact Info) Description 06/14/2022 Orders Only [facility] MEDICINE [address] [place] [address] Kwasi Galeano, PharmD 230 [place], [place] [phone] Social History Tobacco Use Types Packs/Day Years [...] Description 06/24/2025 9:30 AM EST Medication Management [facility] MEDICINE [address] [place] [address] Kwasi Galeano, PharmD 230 [place] [address] 12/10/2025 1:30 PM EDT Medication Management [facility] MEDICINE 230 [place] [address] Kwasi Galeano, PharmD 230 [place] [address] documented as of this encounter Visit Diagnoses Not on filedocumented in this encounter Additional Health Concerns Assessment Noted Time PHQ-9 Depression Total Score: 022 11:07 AM EST documented as of this encounter Care Teams Professor Of Psychology Relationship Specialty Start Date End Date Ayan Gilbert AGNP PCP - General Family Medicine 06/08/22 03/30/23 Hellen Phillip ANP [address] [place] [address] PCP - General Family Medicine 03/31/23 08/31/23 Aruna Mcneill MD [address] [place] [address] PCP - General Family Medicine 09/01/23 Kwasi Galeano, PharmD [address] [place] [address] Pharmacist Internal Medicine 11/25/23 documented as of this encounter
--- OUTSIDE RECORDS SUMMARY | 2025-05-21 11:58 | XMS_ITS | Encounter Summary ---
Author Organization [employer] Address [address] 7t [place] [address] Care Team Providers Care Oil Heater Operator Name Role Phone Aruna Mcneill MD Primary Care Provider [phone] Kwasi Galeano PharmD Unavailable [phone] Reason for Referral * Consultation (Routine) - Pending Review Specialty Diagnoses / Procedures Referred By Contac t Referred To Contact Pharmacy Diagnoses Essential hypertension Type 2 diabetes mellitus with hyperglycemia, without long-term current use of insulin ([facility]) Aruna Mcneill MD [address] [place] [address] Phone: tel: fax: Referral ID Status Reason Start Date Expiration Date Visits Requested Visits Authorized [id number] Pending Review Consult and Treat 10/12/2024 10/12/2025 6 6 Encounter Details Date Type Department Care Team (Late st Contact Info) Description 10/12/2024 Orders Only [facility] MEDICINE [address] [place] [address] Aruna Mcneill MD [address] [place] [address] [phone] Essential hypertension (Primary Dx); Type 2 diabetes mellitus with hyperglycemia, without long-term current use of insulin ([facility]) Social History Tobacco Use Types Packs/Day Years [...] Description 06/24/2025 9:30 AM EST Medication Management [facility] MEDICINE [address] [place] [address] Kwasi Galeano, PharmD [address] [place] [address] 12/10/2025 1:30 PM EDT Medication Management [facility] MEDICINE [address] [place] [address] Kwasi Galeano, PharmD [address] [place] [address] Scheduled Referrals Name Type Priority Associated Diagnoses Orde r Schedule Referral to Pharmacy CDTM Outpatient Referral Routine Essential hypertension Type 2 diabetes mellitus with hyperglycemia, without long-term current use of insulin ([facility]) Ordered: 10/12/2024 documented as of this encounter [...] hyperglycemia, without long-term current use of insulin ([facility]) documented in this encounter Additional Health Concerns Assessment Noted Time PHQ-9 Depression Total Score: 17 08/07/ 025 1:01 PM EST documented as of this encounter Care Teams Oil Heater Operator Relationship Specialty Start Date End Date Aruna Mcnelil MD 230 [place] [address] PCP - General Family Medicine 09/01/23 Kwasi Galeano PharmD 230 [place] [address] Pharmacist Internal Medicine 11/25/23 documented as of this encounter
--- OUTSIDE RECORDS SUMMARY | 2025-05-21 11:58 | XMS_ITS | Encounter Summary ---
Author Organization [employer] Address [address] 7t [place] [address] Care Team Providers Care Book Salesman Name Role Phone Aruna Mcneill MD Primary Care Provider [phone] Kwasi Galeano PharmD Unavailable [phone] Reason for Referral * Consultation (Routine) - Canceled Specialty Diagnoses / Procedures Referred By Contac t Referred To Contact Pharmacy Diagnoses Type 2 diabetes mellitus with hyperglycemia, without long-term current use of insulin (HCC) Essential hypertension Aruna Mcneill MD [address] [place] [address] Phone: tel: fax: Referral ID Status Reason Start Date Expiration Date V isits Requested Visits Authorized [id number] Canceled Consult and Treat 05/22/2024 05/22/2025 6 6 Encounter Details Date Type Department Care Team (Late st Contact Info) Description 05/22/2024 Orders Only [facility] MEDICINE [address] [place] [address] Aruna Mcneill MD [address] [place] [address] [phone] Type 2 diabetes mellitus with hyperglycemia, without [...] Description 06/24/2025 9:30 AM EST Medication Management [address] [address] Kwasi Galeano, PharmD 230 [place] [address] 12/10/2025 1:30 PM EDT Medication Management [facility] MEDICINE [address] [place] [address] Kwasi Galeano, ChinoD 230 [place] [address] Scheduled Referrals Name Type Priority Associated Diagnoses Orde r Schedule Referral to Pharmacy CDTM Outpatient Referral Routine Type 2 diabetes mellitus with hyperglycemia, without long-term current use of insulin ([facility]) Essential hypertension Ordered: 05/22/2024 documented as of [...] hyperglycemia, without long-term current use of insulin ([facility])- Primary Essential hypertension Unspecified essential hypertension documented in this encounter Additional Health Concerns Assessment Noted Time PHQ-9 Depression Total Score: 14 023 10:35 AM EST documented as of this encounter Care Teams Book Salesman Relationship Specialty Start Date End Date Aruna Mcneill MD 230 [place] [address] PCP - General Family Medicine 09/01/23 Kwasi Galeano PharmD 230 [place] [address] Pharmacist Internal Medicine 11/25/23 documented as of this encounter
--- OUTSIDE RECORDS SUMMARY | 2025-05-21 11:58 | XMS_ITS | Encounter Summary ---
Author Organization [employer] Address [address] 7t [place] [address] Care Team Providers Care Manager Subway Name Role Phone Aruna Mcneill MD Primary Care Provider [phone] Kwasi Galeano PharmD Unavailable [phone] Reason for Visit * Reason Comments Med Refill Encounter Details Date Type Department Care Team (Late st Contact Info) Description 02/03/2025 Refill [facility] MEDICINE 230 [place], [place] [phone] Aruna Mcneill MD 230 [place], [place] [phone] Hyperlipidemia, unspecified hyperlipidemia type Social History Tobacco [...] Description 06/24/2025 9:30 AM EST Medication Management [address] [address] Kwasi Galeano PharmD [address] [place] [address] 12/10/2025 1:30 PM EDT Medication Management [address] [address] Kwasi Galeano PharmD [address] [place] [address] documented as of this encounter Goals Goal [...] as of this encounter Care Teams Manager Subway Relationship Specialty Start Date End Date Aruna Mcneill MD [address] [place] [address] PCP - General Family Medicine 09/01/23 Kwasi Galeano, ChinoD [address] [place] [address] Pharmacist Internal Medicine 11/25/23 documented as of this encounter
== END 2025-05-21 11:08 | disposition home or self-care (01) ==
LOC: HO.HUSH 10:25
PROVIDERS: PCP Family Medicine; Visit Provider Urology
DX: E11.69 Type 2 diabetes mellitus with other specified complication (principal); N52.1 Erectile dysfunction due to diseases classified elsewhere; E29.1 Testicular hypofunction
CPT/HCPCS: 99213

== ENCOUNTER → 2025-05-21 10:24 | Outpatient (BNVA) | payer MEDICAID, SELFPAY | PROVIDERS: PCP Family Medicine; Visit Provider Urology | DX: E11.69 Type 2 diabetes mellitus with other specified complication (principal); N52.1 Erectile dysfunction due to diseases classified elsewhere; E29.1 Testicular hypofunction | CPT/HCPCS: 99212 ==

== ENCOUNTER 2025-05-23 08:22 | Outpatient (REF) | payer MEDICAID, SELFPAY ==
--- NOTE | ~2025-05-23 | XR_ITS ---
EXAMINATION: XR HIP, RIGHT CLINICAL INFORMATION: pain in hip and back COMPARISON: None available. TECHNIQUE: Two views of the right hip. FINDINGS: Bone alignment is normal. No fracture or dislocation. Mild joint space narrowing. Soft tissues are normal. XR/XR hip RT min 2V IMPRESSION: Mild joint space narrowing. Electronically signed by: Stephanie Esteban MD 05/23/2025 09:16 AM [facility]
--- NOTE | ~2025-05-23 | XR_ITS ---
EXAMINATION: XR HIP, LEFT CLINICAL INFORMATION: pain in hip and back COMPARISON: None available. TECHNIQUE: Two views of the left hip. FINDINGS: Bone alignment is normal. No fracture or dislocation. Mild left hip arthritis with joint space narrowing and small osteophytes. Soft tissues are normal. XR/XR hip LT min 2V IMPRESSION: Mild degenerative changes. Electronically signed by: Stephanie Esteban MD 05/23/2025 09:14 AM [facility]
--- NOTE | ~2025-05-23 | XR_ITS ---
EXAMINATION: XR LUMBOSACRAL SPINE CLINICAL INFORMATION: pain in hip and back COMPARISON: None available. TECHNIQUE: Three views of the lumbosacral spine. FINDINGS: Bone alignment is normal. No fracture or dislocation. Mild multilevel degenerative spondylosis. No disc space narrowing. Mild atherosclerotic disease. Surgical clips in the right upper quadrant probably from cholecystectomy. XR/XR lumbar spine 2-3V IMPRESSION: Mild degenerative spondylosis. Electronically signed by: Stephanie Esteban MD 05/23/2025 09:15 AM [facility]
--- OUTSIDE RECORDS SUMMARY | 2025-05-23 08:42 | XMS_ITS | Encounter Summary ---
Author Organization [employer] Address [address] 7t [place] [address] Care Team Providers Care Shoe Repair Supervisor Name Role Phone Aruna Mcneill MD Primary Care Provider [phone] Kwasi Galeano PharmD Unavailable [phone] Encounter Details Date Type Department Care Team [...] Description 06/24/2025 9:30 AM EST Medication Management [address] [address] Kwasi Galeano PharmD [address] [place] [address] 12/10/2025 1:30 PM EDT Medication Management [address] [address] Kwasi Galeano PharmD [address] [place] [address] documented as of this encounter Goals Goal [...] documented as of this encounter Care Teams Shoe Repair Supervisor Relationship Specialty Start Date End Date Aruna Mcneill MD [address] [place] [address] PCP - General Family Medicine 09/01/23 Kwasi Galeano, PharmD [address] [place] [address] Pharmacist Internal Medicine 11/25/23 documented as of this encounter
--- OUTSIDE RECORDS SUMMARY | 2025-05-23 08:42 | XMS_ITS | Encounter Summary ---
Author Organization [employer] Address [address] 7t [place] [address] Care Team Providers Care Development Technical Lead Name Role Phone Ayan Gilbert Primary Care Provider Unavail able Hellen Phillip Primary Care Provider [phone] Aruna Mcneill MD Primary Care Provider Kwasi Galeano PharmD Unavailable [phone] Encounter Details Date Type Department Care Team ([facility] Contact Info) Description 06/14/2022 Orders Only [facility] MEDICINE 230 [place] [address] Mariano Guan MD [address] [place] [address] Type 2 diabetes mellitus without complication, without long-term current use of insulin ([facility]) (Primary Dx) Social History Tobacco Use Types [...] Upcoming Encounters Date Type Department Care Team ([facility] Contact Info) Description 06/24/2025 9:30 AM EST Medication Management [address] [address] Kwasi Galeano, PharmCharla [address] [place] [address] 12/10/2025 1:30 PM EDT Medication Management [address] [address] Kwasi Galeano, PharmD [address] [place] [address] documented as of this encounter Visit Diagnoses Diagnosis Type 2 diabetes mellitus without complication, without long-term current use of insulin (HCC)- Primary documented in this encounter Additional Health Concerns Assessment Noted Time PHQ-9 Depression Total Score: 22 022 11:07 AM EST documented as of this encounter Care Teams Development Technical Lead Relationship Specialty Start Date End Date Ayan Gilbert AGNP PCP - General Family Medicine 06/08/22 03/30/23 Hellen Phillip ANP [address] [place] [address] PCP - General Family Medicine 03/31/23 08/31/23 Aruna Mcneill MD [address] [place] [address] PCP - General Family Medicine 09/01/23 Kwasi Galeano, PharmD [address] [place] [address] Pharmacist Internal Medicine 11/25/23 documented as of this encounter
--- OUTSIDE RECORDS SUMMARY | 2025-05-23 08:42 | XMS_ITS | Encounter Summary ---
Author Organization [employer] Address [address] 7t [place] [address] Care Team Providers Care Community Associate Name Role Phone Aruna Mcneill MD Primary Care Provider [phone] Kwasi Galeano PharmD Unavailable [phone] Reason for Visit * Reason Comments Med Refill Encounter Details Date Type Department Care Team (Late st Contact Info) Description 02/03/2025 Refill [facility] MEDICINE 230 [place], [place] [phone] Aruna Mcneill MD 230 [place], [place] [phone] Hyperlipidemia, unspecified hyperlipidemia type Social History Tobacco [...] Description 06/24/2025 9:30 AM EST Medication Management [address] [address] Kwasi Galeano PharmD [address] [place] [address] 12/10/2025 1:30 PM EDT Medication Management [address] [address] Kwasi Galeano PharmD [address] [place] [address] documented as of this encounter Goals Goal [...] documented as of this encounter Care Teams Community Associate Relationship Specialty Start Date End Date Aruna Mcneill MD 230 [place] [address] PCP - General Family Medicine 09/01/23 Kwasi Galeano, ChinoD 230 [place] [address] Pharmacist Internal Medicine 11/25/23 documented as of this encounter
--- OUTSIDE RECORDS SUMMARY | 2025-05-23 08:42 | XMS_ITS | Encounter Summary ---
Author Organization [employer] Address [address] [facility] [address] [facility] [address] 7t [place] [address] Care Team Providers Care Model Builder Name Role Phone Ayan Gilbert CONRAD Primary Care Provider Unavail able Hellen Phillip Primary Care Provider [phone] Aruna Mcneill MD Primary Care Provider [phone] Kwasi Galeano PharmD Unavailable [phone] Encounter Details Date Type Department Care Team ([facility] Contact Info) Description 06/14/2022 Orders Only [facility] MEDICINE [address] [place] [address] Kwasi Galeano, PharmD 230 [place], [place] [phone] Social History Tobacco Use Types Packs/Day Years [...] Description 06/24/2025 9:30 AM EST Medication Management [facility] MEDICINE [address] [place] [address] Kwasi Galeano, PharmD 230 [place] [address] 12/10/2025 1:30 PM EDT Medication Management [facility] MEDICINE 230 [place] [address] Kwasi Galeano, PharmD [address] [place] [address] documented as of this encounter Visit Diagnoses Not on filedocumented in this encounter Additional Health Concerns Assessment Noted Time PHQ-9 Depression Total Score: 022 11:07 AM EST documented as of this encounter Care Teams Model Builder Relationship Specialty Start Date End Date Ayan Gilbert AGNP PCP - General Family Medicine 06/08/22 03/30/23 Hellen Phillip ANP [address] [place] [address] PCP - General Family Medicine 03/31/23 08/31/23 Aruna Mcneill MD [address] [place] [address] PCP - General Family Medicine 09/01/23 Kwasi Galeano, PharmD [address] [place] [address] Pharmacist Internal Medicine 11/25/23 documented as of this encounter
--- OUTSIDE RECORDS SUMMARY | 2025-05-23 08:42 | XMS_ITS | Encounter Summary ---
Author Organization [employer] Address [address] 7[address] [place] [address] Care Team Providers Care Box Toe Buffer Name Role Phone Aruna Mcneill MD Primary Care Provider [phone] Kwasi Galeano PharmD Unavailable [phone] Reason for Referral * Consultation (Routine) - Pending Review Specialty Diagnoses / Procedures Referred By Contac t Referred To Contact Pharmacy Diagnoses Essential hypertension Type 2 diabetes mellitus with hyperglycemia, without long-term current use of insulin ([facility]) Aruna Mcneill MD [address] [place] [address] Phone: tel: fax: Referral ID Status Reason Start Date Expiration Date Visits Requested Visits Authorized [id number] Pending Review Consult and Treat 10/12/2024 10/12/2025 6 6 Encounter Details Date Type Department Care Team (Late st Contact Info) Description 10/12/2024 Orders Only [facility] MEDICINE [address] [place] [address] Aruna Mcneill MD [address] [place] [address] [phone] Essential hypertension (Primary Dx); Type 2 diabetes mellitus with hyperglycemia, without long-term current use of insulin ([facility]) Social History Tobacco Use Types Packs/Day Years [...] Description 06/24/2025 9:30 AM EST Medication Management [facility] [address] [place] [address] Kwasi Galeano, PharmD [address] [place] [address] 12/10/2025 1:30 PM EDT Medication Management [facility] [address] [place] [address] Kwasi Galeano, PharmD [address] [place] [address] Scheduled Referrals Name Type Priority Associated Diagnoses Orde r Schedule Referral to Pharmacy CDTM Outpatient Referral Routine Essential hypertension Type 2 diabetes mellitus with hyperglycemia, without long-term current use of insulin ([facility]) Ordered: 10/12/2024 documented as of [...] hyperglycemia, without long-term current use of insulin ([facility]) documented in this encounter Additional Health Concerns Assessment Noted Time PHQ-9 Depression Total Score: 17 08/07/ 025 1:01 PM EST documented as of this encounter Care Teams Box Toe Buffer Relationship Specialty Start Date End Date Aruna Mcneill MD 230 [place] [address] PCP - General Family Medicine 09/01/23 Kwasi Galeano PharmD [address] [place] [address] Pharmacist Internal Medicine 11/25/23 documented as of this encounter
--- OUTSIDE RECORDS SUMMARY | 2025-05-23 08:42 | XMS_ITS | Clinical Summary ---
Author Organization [employer] Address [address] [facility] [address] [place] [address] Care Team Providers Care Radiation Therapy Technician Name Role Phone Aruna Mcneill MD Primary Care Provider [phone] Kwasi Galeano PharmD Unavailable [phone] Allergies Active Allergy Reactions Criticality Noted Date [...] and as needed when you feel sick. Kiswahili label 1 kit 024 Active nitroglycerin (Nitrostat) [...] on 10/14/2023 - Following with Dr. Hernández, [facility] urology - Referred to another urology service for second opinion per patient's request Hypogonadism in male 05/03/2025 Assessment & Plan (05/03/2025 10:42 AM EDT): - Currently following with Dr. Hernández at [facility] Urology - Prescribed testosterone gel Moderate major depression (CMS/HCC) 01/23/2025 Assessment & Plan (05/03/2025 10:48 AM EDT): - Current [facility] provider: BHN - Patient declined pharmacological treatment [...] - Pt declines pharmacological treatment - Current [facility] provider: Will Assessment & Plan (12/11/2024 5:06 [...] AM EDT): - following with Dr. Hernández, [facility] urology - s/p circumcision and frenulectomy on 02/01/22 for balanitis and phimosis - continue current medication PDE5 inhibitor with caution - Patient request second opinion Assessment & Plan (11/06/2024 9:56 AM EDT): - following with Dr. Hernández, [facility] urology - s/p circumcision and frenulectomy on 02/01/22 for balanitis and phimosis - continue current medication PDE5 inhibitor with caution Assessment & Plan (11/06/2023 12:55 PM EDT): - following with Dr. Hernández, [facility] urology - s/p circumcision and frenulectomy on 02/01/22 for balanitis and phimosis - continue current medication PDE5 inhibitor with caution History of DC (myocardial infarction) 10/30/2023 Mood disorder 09/03/2022 Assessment & Plan (11/06/2024 9:57 AM EDT): - behavioral health service provider: BEBE Jon - will check at next visit if patient is currently connected with [facility] Assessment & Plan (08/09/2024 8:28 AM EST): - behavioral health service provider: BEBE Jon - will check at next visit if patient is currently connected with [facility] Assessment & Plan (11/06/2023 12:29 PM EDT): - behavioral health service provider: BEBE Jon - will check at next visit if patient is currently connected with [facility] Assessment & Plan (09/17/2022 9:04 AM [...] to discuss his nitroglycerin use with his applied researcher He stated he had an echocardiogram 2 [...] & Plan (04/24/2025 5:17 PM EDT): - applied researcher: ANNIE, last seen in September 2023 - Echo - will obtain from [facility] - last stress test - will obtain from [facility] - continue statin, ACEI, BB, ASA, and clopidogrel. Assessment & Plan (11/06/2024 9:56 AM EDT): - applied researcher: ANNIE, last seen in September 2023 - Echo - will obtain from [facility] - last stress test - will obtain from [facility] - continue statin, ACEI, BB, ASA, and clopidogrel. Assessment & Plan (08/09/2024 8:28 AM EST): - applied researcher: CASSIDYVinicio, last seen in September 2023 - Echo - will obtain from [facility] - last stress test - will obtain from [facility] - continue statin, ACEI, BB, ASA, and clopidogrel. Assessment & Plan (11/06/2023 1:01 PM EDT): - applied researcher: CASSIDYVinicio, last seen in September 2023 - [...] (05/03/2025 10:46 AM EDT): - following with [facility] sleep medicine clinic, last seen in December 2022 - sleep study on 02/01/23 AutoPAP 5-20 cm H2O - recommended to check with sleep medicine clinic for CPAP and its coverage - patient has lost weight and may have improved Assessment & Plan (11/06/2024 9:55 AM EDT): - following with [facility] sleep medicine clinic, last seen in December 2022 - sleep study on 02/01/23 AutoPAP 5-20 cm H2O - recommended to check with sleep medicine clinic for CPAP and its coverage - patient has lost weight and may have improved Assessment & Plan (08/09/2024 8:27 AM EST): - following with [facility] sleep medicine clinic, last seen in December 2022 - sleep study on 02/01/23 AutoPAP 5-20 cm H2O - recommended to check with sleep medicine clinic for CPAP and its coverage - patient has lost weight and may have improved Assessment & Plan (11/06/2023 12:50 PM EDT): - following with [facility] sleep medicine clinic, last seen in December [...] interrupted until then - refer back to [facility] GI Abdominal wall hernia 08/30/2017 Hyperlipidemia 08/30/2017 [...] 214; LDL 140; HDL 45 Dental care: [facility] Assessment & Plan (12/11/2024 5:02 PM [...] 214; LDL 140; HDL 45 Dental care: [facility] Assessment & Plan (11/06/2024 10:54 AM [...] 214; LDL 140; HDL 45 Dental care: [facility] Assessment & Plan (08/12/2024 1:09 PM [...] Microalbumin: 10/31/23 Lipid profile: 10/31/23 Dental care: [facility] Assessment & Plan (11/06/2023 12:45 [...] Microalbumin: 10/31/23 Lipid profile: 10/31/23 Dental care: [facility] Assessment & Plan (01/05/2023 12:29 [...] prandin and plavix. Received phone call from [facility] pharmacy warning me of this [...] by oral route QHS TRUEplus Lancets 33G [facility] [place] BLOOD SUGAR THREE TIMES DAILY No [...] Data 04/22/2025 10:15 AM EDT Office Visit [facility] [address] [place] [address] Aruna Mcneill MD Essential hypertension (Primary Dx); [...] unspecified hyperlipidemia type 04/22/2025 Travel 04/19/2025 Telephone [facility] [address] [place] [address] Aruna Mcneill MD chartprep 04/18/2025 Refill [facility] [address] [place] [address] Kwasi Galeano, ChinoD Type 2 diabetes mellitus with hyperglycemia, without long-term current use of insulin ([facility]) (Primary Dx) 03/22/2025 Travel 03/12/2025 Telephone [facility] [address] [place] [address] Aruna Mcneill MD No Show 03/04/2025 Telephone [facility] [address] [place] [address] Aruna Mcneill MD No Show 02/28/2025 Refill [facility] [address] [place] [address] Aruna Mcneill MD 02/28/2025 Refill [facility] [address] [place] [address] Aruna Mcneill MD 02/25/2025 Refill [facility] [address] [place] [address] Yara Mahan MD Type 2 diabetes mellitus with hyperglycemia, without long-term current use of insulin ([facility]) from Last 3 Months Immunizations Immunization Administration [...] Description 06/24/2025 9:30 AM EST Medication Management [facility] [address] [place] [address] Kwasi Galeano, PharmD [address] [place] [address] 12/10/2025 1:30 PM EDT Medication Management [facility] [address] [place] [address] Kwasi Galeano, PharmD [address] [place] [address] Health Maintenance Due Date Last Done Comments CT Colonography 1960 FIT DNA/Cologuard 1960 FIT 1960 FOBT 1960 HIV Screening 1960 Sigmoidoscopy 1960 Colonoscopy 11/24/2023 11/23/2021, 01/30/2021 Colorectal Cancer Screening 11/24/2023 Depression Monitoring 06/12/2025 12/11/2024, 025 Diabetes: Hemoglobin A1C 06/21/2025 025, 11/06/2024, 08/07/2024, Additional history exists Alcohol/Substance Use Screening 08/07/2025 08/07/2024 Diabetes: Urine Protein Screening 08/08/2025 08/08/2024, 08/08/2024, 10/31/2023, Additional history exists Lipid Panel 08/08/2025 08/08/2024, 10/10, 11/03/2022, Additional history exists Diabetes: Foot Exam 11/06/2025 11/06/2024, 11/06/2024, 11/06/2024, Additional history exists Disability Screening 11/06/2025 11/06/2024 SDOH Screening 11/06/2025 11/06/2024 Lung Cancer Screening 01/25/2026 01/25/2025 , 01/25/2025, 01/20/2024 Tobacco Screening 05/03/2026 05/03/2025 Eye Exam 12/10/2026 12/10/2024, 06/0 08/2024, 12/10/2024, Additional history exists DTaP/Tdap/Td Vaccines [...] Pressure 120/60(2024 9:16 AM EST) No Kwasi Galeano, Tung Hemoglobin A1c < 7 Result Component 7.8( 11:02 AM EDT) No Kwasi Galeano PharmD Procedures Procedure Name Priority Date/Time Associated Diagnosis Comments TESTOSTERONE, TOTAL, MALES (ADULT), [place] Routine 05/08/2025 8:15 AM EDT POCT GLUCOSE Routine 04/22/2025 10:19 AM EDT Type 2 diabetes mellitus with hyperglycemia, without long-term current use of insulin ([facility]) POCT GLYCATED HEMOGLOBIN, TOTAL Routine 03/22/2025 11:02 AM EDT Type 2 diabetes mellitus with hyperglycemia, without long-term current use of insulin ([facility]) LDCT LUNG SCREENING Routine 01/25/2025 3 :05 PM EDT ALBUMIN, RANDOM URINE W/CREATININE Routine 08/08/2024 8:09 AM EST Essential hypertension Type 2 diabetes mellitus with hyperglycemia, without long-term current use of insulin (CMS/[facility]) LIPID PANEL WITH REFLEX TO DIRECT LDL Routine 08/08/2024 8:09 AM EST Ischemic heart disease Type 2 diabetes mellitus with hyperglycemia, without long-term current use of insulin ([facility]/HCC) HEPATITIS C AB W/REFL TO HCV RNA, QN, PCR Routine 09/08/2022 8:23 AM EST Routine health maintenance HM COLONOSCOPY Routine 11/23/2021 from Last 3 Months or Most Recently Relevant to Health Maintenance Results * Testosterone, Total, males (Adult), [place] (05/08/2025 8:15 AM EDT) Testosterone, Total 530 250 - 1100 ng/dL [facility] Comment:Men with clinically significant hypogonadalsymptoms and testosterone values repeatedly inthe range of the 200-300 ng/dL or less, maybenefit from testosterone treatment afteradequate risk and benefits counseling.For additional information, please refer tohttp://education.[employer])/faq/FcdozVmplbrhqidlmQWZGANDZI678(This link is being provided for informational/educational purposes only.)This test was developed and its analytical performancecharacteristics have been determined by [employer] [place], [place]. It hasnot been cleared or approved by the U.S. Food and DrugAdministration. This assay has been validated pursuantto the CLIA regulations and is used for clinicalpurposes.THIS TEST WAS PERFORMED AT:[employer] [place] [address]LUWMPVCMOUNA HODGES MD,PHD 05/08/2025 8:15 AM EDT 05/08/2025 8:15 AM EDT us Generic External Data Provider LAB BLOOD ORDERAB LES Final Result [facility] [address] [place] [address] [phone] * POCT glucose manually resulted (04/22/2025 10:19 AM EDT) Glucose Blood, POC 169 60 - 200 mg/dL QC Media Lot # [id number] Lot# Expiration Date [id number] Blood Capillary blood specimen / Unknown 04/22/2025 10:19 AM EDT us Aruna Mcneill MD POINT OF CARE TEST ENTER/EDIT OR DERABLES Final Result * (ABNORMAL) POCT Hgb A1c (03/22/2025 11:02 AM EDT) Hemoglobin A1C 7.8(A) 4.0 - 5.7 % QC Media Lot # [id number] Lot# Expiration Date ,[id number] Blood 03/22/2025 11:0 2 AM EDT Aruna Mcneill MD POINT OF CARE TEST ENTER/EDIT OR DERABLES Final Result * CT Lung Screening Low dose (01/25/2025 3:05 PM EDT) Anatomical Region Laterality Modality Lung Computed Tomogra phy 01/25/2025 3:05 PM EDT Narrative 01/25/2025 3:32 PM EDT [place] [address] CT Scan Report Signed Patient: Jesus Priest MR# : [id number] : 1960 Acct:[id number] Age/Sex: 64 / M ADM Date: 01/25/25 Loc: HO.CT Attending Dr: Shannan Henderson PA-C Ordering Physician: Shannan Henderson PA-C Date of Service: 01/25/25 Procedure(s): CT lung screening Accession Number(s): [id number] cc: Shannan Henderson PA-C; Aruna Mcneill MD Report Number: [id number]: Total DLP = 68.00 mGy-cm EXAMINATION: CT [...] 01/25/25 1529 DD/ 1505 TD/TT: 01/25/25 1519 Town Marshal: Procedure Note Donotuseinterpreter, Image - 01/25/[address] [place] [address] [address] Scan Report Signed Patient: Stefanie Priest# : [id number] : 1960Acct:[id number] Age/Sex: 64 / MADM Date: 01/25/25 Loc: .CT Attending Dr: Shannan Henderson PA-C Ordering Physician: Shannan Henderson PA-C Date of Service: 01/25/25 Procedure(s): CT lung screening Accession Number(s): [id number] cc: Shannan Henderson PA-C; Aruna Mcneill MD Report Number: [id number]: Total DLP = 68.00 mGy-cm EXAMINATION: CT [...] 01/25/25 1529 DD/ 1505 TD/TT: 01/25/25 1519 Town Marshal: [facility] External Provider IMG CT PROCEDURES Final Result * (ABNORMAL) Lipid Panel with Reflex to Direct LDL (08/08/2024 8:09 AM EST) Triglycerides 146 <150 mg/dL [facility] Comment:Desirable Triglyceri de: less than 150 mg/dLBorderline High Triglyceride 150-199 mg/dLHigh Triglyceride: 200-499 mg/dLVery High Triglyceride: greater than or equal to 5OO mg/dL Cholesterol 214(H) <200 mg/dL [facility] Comment:Desirable Cholestero l: less than 200 mg/dLBorderline High Cholesterol: 200-239 mg/dLHigh Cholesterol: greater than 239 mg/dL LDL Cholesterol Calculated 140(H) <100 mg/dL [facility] Comment:Desirable LDL: less than 100 mg/dLNear Optimal/Above Optimal LDL: 110- 129 mg/dLBorderline High LDL: 130-159 mg/dLHigh LDL: 160-189 mg/dLVery High LDL: greater than or equal to 190 mg/dL HDL Cholesterol 45 >40 mg/dL [facility] Comment:Desirable HDL: great er than 40 mg/dL Note: This HDL assay may give artificially low results in patients with liver disease. Blood 08/08/2024 8:09 AM EST 08/08/2024 11:25 AM EST Aruna Mcneill MD LAB BLOOD ORDERABLES Final Resul t Performing Organization Address [facility] Co de Phone Number [facility] [address] [place] [address] [phone] * (ABNORMAL) Albumin, Random Urine W/Creatinine (08/08/2024 8:09 AM EST) Creatinine, Urine 113.85 mg/dL [facility] Microalbumin Urine 58.0 mg/L [facility] Microalbum Creatinine Ratio Ur 50.9(H) <30 ug/mg cr [facility] Comment:Albumin/Creatinine R atio Reference Ranges: Normal: < 30 ug/mg creatinine Microalbuminuria: 30 - 300 ug/mg creatinineClinical Albuminuria: > 300 ug/mg creatinine Urine 08/08/2024 8:09 AM EST 08/08/2024 11:16 AM EST Aruna Mcneill MD LAB URINE ORDERABLES Final Resul t Performing Organization Address [facility] Co de Phone Number [facility] [address] [place] [address] [phone] * Hepatitis C Antibody with Reflex to HCV, RNA, Quantitative, Real-Time PCR (09/08/2022 8:23 AM EST) Hepatitis C Antibody NON-REACT CORBY NON-REACT CORBY [facility] Index 0.04 <1.00 [facility] Comment: HCV antibody was non-reactive. There is no laboratory evidence of HCV infection. In most cases, no further action is required. However, if recent HCV exposure is suspected, a test for HCV RNA (test code 67627) is suggested. For additional information please refer to http://education.[employer]/faq/BEL41q7 (This link is being provided for informational/ educational purposes only.) Blood Venous blood specimen / Unknown 09/08/2022 8:23 AM EST 09/08/2022 8:24 AM EST Narrative [facility] - 09/08/2022 9:34 PM EST FASTING:NO FASTING: NO Ayan MARTINES LAB BLOOD ORDERABLES Final Res ult [facility] [address] [facility], [facility], [place] [address] [facility] [address] [facility], ([address]) [place] [address] * Colonoscopy (11/23/2021) [facility] Signature Colonoscopy Normal Normal Narrative Imelda Winkler - 11/23/2021 Recommended 2 year follow up Historical Provider HEALTH MAINTENANCE Final Result from Last 3 Months or Most Recently Relevant to Health Maintenance Insurance [facility] C3 Care Teams Radiation Therapy Technician Relationship Specialty Start Date End Date Aruna Mcneill MD [address] [place] [address] PCP - General Family Medicine 09/01/23 Kwasi Galeano, PharmD [address] [place] [address] Pharmacist Internal Medicine 11/25/23
--- OUTSIDE RECORDS SUMMARY | 2025-05-23 08:42 | XMS_ITS | Encounter Summary ---
Author Organization [employer] Address [address] [address] [place] [address] Care Team Providers Care Research Biostatistician Name Role Phone Aruna Mcneill MD Primary Care Provider Kwasi Galeano PharmD Unavailable [phone] Encounter Details Date Type Department Care Team ([facility] st Contact Info) Description 11/01/2023 Orders Only [facility] [address] [place], [place] [phone] Aruna Mcneill MD [address] [place] [address] Hyperlipidemia, unspecified hyperlipidemia type Social History Tobacco [...] Description 06/24/2025 9:30 AM EST Medication Management [address] [address] Kwasi Galeano, PharmD [address] [place] [phone] 12/10/2025 1:30 PM EDT Medication Management [address] [address] Kwasi Galeano, PharmD [address] [place] [phone] documented as of this encounter Visit Diagnoses Diagnosis Hyperlipidemia, unspecified hyperlipidemia type documented in this encounter Additional Health Concerns Assessment Noted Time PHQ-9 Depression Total Score: 14 023 10:35 AM EST documented as of this encounter Care Teams Research Biostatistician Relationship Specialty Start Date End Date Aruna Mcneill MD [address] [place] [phone] PCP - General Family Medicine 09/01/23 Kwasi Galeano, ChinoD [address] [place] [phone] Pharmacist Internal Medicine 11/25/23 documented as of this encounter
--- OUTSIDE RECORDS SUMMARY | 2025-05-23 08:42 | XMS_ITS | Encounter Summary ---
Author Organization [employer] Address [address] [facility] [address] [place] [address] Care Team Providers Care Tower Hand Name Role Phone Aruna Mcneill MD Primary Care Provider [phone] Kwasi Galeano PharmD Unavailable [phone] Reason for Referral * Consultation (Routine) - Pending Review Specialty Diagnoses / Procedures Referred By Contac t Referred To Contact Pharmacy Diagnoses Essential hypertension Yara Mahan MD [address] [place] [address] Phone: tel: fax: Referral ID Status Reason Start Date Expiration Date Visits Requested Visits Authorized [id number] Pending Review Continuity of Care 10/18/2024 10/18/2025 6 6 Encounter Details Date Type Department Care Team (Late st Contact Info) Description 10/18/2024 Orders Only [facility] [address] [place] [address] [phone] Yara Mahan MD [address] [place] [address] [phone] Essential hypertension (Primary Dx) Social History Tobacco [...] Description 06/24/2025 9:30 AM EST Medication Management [address] [address] Kwasi Galeano, PharmD [address] [place] [address] 12/10/2025 1:30 PM EDT Medication Management [address] [address] Kwasi Galeano, PharmD [address] [place] [address] Scheduled Referrals Name Type Priority Associated Diagnoses [...] documented as of this encounter Care Teams Tower Hand Relationship Specialty Start Date End Date Aruna Mcneill MD [address] [place] [address] PCP - General Family Medicine 09/01/23 Kwasi Galeano PharmD [address] [place] [address] Pharmacist Internal Medicine 11/25/23 documented as of this encounter
--- OUTSIDE RECORDS SUMMARY | 2025-05-23 08:42 | XMS_ITS | Encounter Summary ---
Author Organization [employer] Address [address] [facility] [address] [place] [address] Care Team Providers Care Acupuncture Physician Name Role Phone Hellen Phillip Primary Care Provider [phone] Aruna Mcneill MD Primary Care Provider Kwasi Galeano PharmD Unavailable [phone] Encounter Details Date Type Department Care Team ([facility] st Contact Info) Description 05/23/2023 Abstract [facility] [address] [place] [address] Hellen Phillip ANP [address] [place] [address] Social History Tobacco Use Types Packs/Day Years [...] Description 06/24/2025 9:30 AM EST Medication Management [address] [address] Kwasi Galeano, PharmD [address] [place] [address] 12/10/2025 1:30 PM EDT Medication Management [address] [address] Kwasi Galeano, PharmD [address] [place] [address] documented as of this encounter Procedures Procedure [...] documented as of this encounter Care Teams Acupuncture Physician Relationship Specialty Start Date End Date Hellen Phillip ANP [address] [place] [address] PCP - General Family Medicine 03/31/23 08/31/23 Aruna Mcneill MD [address] [place] [address] PCP - General Family Medicine 09/01/23 Kwasi Galeano, ChinoD [address] [place] [address] Pharmacist Internal Medicine 11/25/23 documented as of this encounter
--- OUTSIDE RECORDS SUMMARY | 2025-05-23 08:42 | XMS_ITS | Encounter Summary ---
Author Organization [employer] Address [address] [facility] [address] [place] [address] Care Team Providers Care Sidewalk Inspector Name Role Phone Ayan Gilbert Primary Care Provider Unavail able Hellen Phillip Primary Care Provider [phone] Aruna Mcneill MD Primary Care Provider [phone] Kwasi Galeano PharmD Unavailable [phone] Encounter Details Date Type Department Care Team ([facility] Contact Info) Description 06/14/2022 Orders Only [facility] [address] [place] [address] Odilon Lynch RN [address] [place], [place] [phone] Social History Tobacco Use Types Packs/Day Years [...] Description 06/24/2025 9:30 AM EST Medication Management [facility] [address] [place] [address] Kwasi Galeano, PharmD [address] [facility] [place] [address] 12/10/2025 1:30 PM EDT Medication Management [facility] [address] [place] [address] Kwasi Galeano, PharmD [address] [place] [address] documented as of this encounter Visit Diagnoses Not on filedocumented in this encounter Additional Health Concerns Assessment Noted Time PHQ-9 Depression Total Score: 22 022 11:07 AM EST documented as of this encounter Care Teams Sidewalk Inspector Relationship Specialty Start Date End Date Ayan Gilbert AGNP PCP - General Family Medicine 06/08/22 03/30/23 Hellen Phillip ANP [address] [place] [address] PCP - General Family Medicine 03/31/23 08/31/23 Aruna Mcneill MD [address] [place] [address] PCP - General Family Medicine 09/01/23 Kwasi Galeano, PharmD [address] [place] [address] [phone] Pharmacist Internal Medicine 11/25/23 documented as of this encounter
--- OUTSIDE RECORDS SUMMARY | 2025-05-23 08:42 | XMS_ITS | Encounter Summary ---
Author Organization [employer] Address [address] [facility] [place] [address] Care Team Providers Care Telephone Diaphragm Assembler Name Role Phone Aruna Mcneill MD Primary Care Provider Kwasi Galeano PharmD Unavailable [phone] Reason for Referral * Consultation (Routine) - Canceled Specialty Diagnoses / Procedures Referred By Contac t Referred To Contact Pharmacy Diagnoses Type 2 diabetes mellitus with hyperglycemia, without long-term current use of insulin (HCC) Essential hypertension Aruna Mcneill MD [address] [place] [id number] Phone: tel: fax: Referral ID Status Reason Start Date Expiration Date V isits Requested Visits Authorized [id number] Canceled Consult and Treat 05/22/2024 05/22/2025 6 6 Encounter Details Date Type Department Care Team (Late st Contact Info) Description 05/22/2024 Orders Only [facility] [address] [place] [phone] Aruna Mcneill MD [address] [place] [address] [phone] Type 2 diabetes mellitus with hyperglycemia, without [...] Description 06/24/2025 9:30 AM EST Medication Management [address] [id number] Kwasi Galeano, PharmD [address] [place] [address] 12/10/2025 1:30 PM EDT Medication Management [facility] [address] [place] [phone] Kwasi Galeano, [place]D [address] [place] [address] Scheduled Referrals Name Type Priority Associated Diagnoses Orde r Schedule Referral to Pharmacy CDTM Outpatient Referral Routine Type 2 diabetes mellitus with hyperglycemia, without long-term current use of insulin ([facility]) Essential hypertension Ordered: 05/22/2024 documented as of [...] hyperglycemia, without long-term current use of insulin ([facility])- Primary Essential hypertension Unspecified essential hypertension documented in this encounter Additional Health Concerns Assessment Noted Time PHQ-9 Depression Total Score: 14 023 10:35 AM EST documented as of this encounter Care Teams Telephone Diaphragm Assembler Relationship Specialty Start Date End Date Aruna Mcneill MD [address] [place] [address] PCP - General Family Medicine 09/01/23 Kwasi Galeano PharmD [address] [place] [address] Pharmacist Internal Medicine 11/25/23 documented as of this encounter
== END 2025-05-23 08:23 | disposition home or self-care (01) ==
LOC: HO.HHCX 08:22
PROVIDERS: PCP Family Medicine; Visit Provider Family Medicine
DX: M25.551 Pain in right hip (principal); M25.552 Pain in left hip; M54.50 Low back pain, unspecified; G89.29 Other chronic pain
CPT/HCPCS: 72100; 73502

== ENCOUNTER → 2025-05-23 08:36 | Outpatient (BNV) | payer MEDICAID, SELFPAY | PROVIDERS: PCP Family Medicine; Visit Provider Radiology Diagnostic Radiology | DX: M16.0 Bilateral primary osteoarthritis of hip (principal); M47.816 Spondylosis without myelopathy or radiculopathy, lumbar region | CPT/HCPCS: 72100; 73502 ==